=== PATIENT | male | born 1955 | race Caucasian/White ===

== ENCOUNTER 2017-09-05 14:08 | Inpatient (IN) | payer MEDICARE, OTHER, SELFPAY ==
[~2017-09-05 14:08] MED LIST: ISOVUE-370 76%-LOCM 1 ML ONE
[2017-09-05] MEDS ORDERED: Ondansetron ODT 4 MG TAB ONE (14:28)
[2017-09-05 14:46] LABS: Hemoglobin 10.6 g/dL (14.0-18.0); Mean Corpuscular HGB CONC 35.9 g/dL (32.0-36.0); Mean Corpuscular Hemoglobin 39.2 pg (27.0-31.0); Mean Platelet Volume 6.2 fL (7.4-10.4); Platelet Count 156 thou/uL (130-400); RBC Distribution Width 12.7 % (11.5-14.5); Red Blood Cell (RBC) Count 2.71 mill/uL (4.70-6.10); White Blood Cell (WBC) Count 11.3 thou/uL (4.8-10.8)
--- NOTE | 2017-09-05 15:02 | CT ---
BRAIN CT WITHOUT IV CONTRAST: HISTORY: A 62-year-old male with a history of altered mental status with syncope and collapse. COMPARISON: 08/23/2014 FINDINGS: There is some atrophy and chronic white matter ischemic change. No focal mass or midline shift. No intraaxial or extraaxial hemorrhage. Mild posterior left ethmoid sinus mucosal disease. IMPRESSION: No mass, bleed, or other significant acute process. POS: [facility]
[2017-09-05 15:11] LABS: ALT (SGPT) 95 U/L (8-55); AST (SGOT) 461 U/L (5-34); Albumin 3.9 g/dL (3.5-5.0); Alkaline Phosphatase 300 U/L (40-150); Anion Gap 28 mmol/L (10-20); BUN (Urea Nitrogen) 10 mg/dL (8.4-25.7); Bilirubin, Total 7.6 mg/dL (0.2-1.2); Calc. Creatinine Clearance 0 mL/min (70-130); Calcium 6.3 mg/dL (7.8-10.44); Carbon Dioxide 24 mmol/L (22-29); Chloride 92 mmol/L (98-107); Estimated GFR-MDRD 78; Globulin 2.8 g/dL (2.4-3.5); Glucose 110 mg/dL (70-105); Protein, Total 6.7 g/dL (6.0-8.3); Sodium 141 mmol/L (136-145)
[2017-09-05 15:14] LABS: Troponin I 0.139 ng/mL (< 0.028)
[2017-09-05 15:16] LABS: Potassium 2.8 mmol/L (3.5-5.1)
--- NOTE | 2017-09-05 15:19 | RAD ---
SINGLE VIEW OF THE CHEST: Comparison: 05-05-12 History: Altered mental status post possible syncopal episode. Patient fell off the couch. FINDINGS: Single view of the chest shows a normal sized cardiomediastinal silhouette. The patient is status pos t sternotomy. There is a tracheostomy with its tip in the trachea. Surgical clips project over the le ft upper chest. There is no evidence of consolidation, mass, or pleural effusion. IMPRESSION: No evidence of acute cardiopulmonary disease. POS: [facility]
[2017-09-05 15:20] LABS: CKMB 19.2 ng/mL (0-6.6)
[2017-09-05 15:23] LABS: #Lymphocytes 0.3 thou/uL (1.20-3.40); #Monocytes 0.9 thou/uL (0.11-0.59); #Neutrophils 10.1 thou/uL (1.40-6.50); %Eosinophils 0.1 % (0.0-10.0); %Lymphocytes 2.5 % (21.0-51.0); %Monocytes 7.8 % (0.0-10.0); %Neutrophils 89.6 % (42.0-75.0); MDiff Complete? YES; Macrocytosis SLIGHT = 6-15 cells (100X) (0-5/hpf); PLT Morphology Comment Appears Adequate
[2017-09-05 15:42] LABS: Acetaminophen Less than 6.0 mcg/mL (10.0-30.0); Alcohol Less than 10 mg/dL (Less than 10); Salicylate Less than 8.0 mg/dL (15.0-30.0)
[2017-09-05] MEDS ORDERED: Potassium Chloride 20 MEQ TAB ONE (15:43)
[2017-09-05] MEDS ORDERED: Potassium Chloride 20 MEQ in Sodium Chloride 0.9% 250 ML 250 ML IVPB ONE (15:45)
[2017-09-05 15:55] LABS: Base Excess-Venous 2.1 mmol/L (0 (+/- 2.5)); Bicarbonate (HCO3v) 25.9 mmol/L (1.0-85.0); Calcium, Ionized 0.53 mmol/L (1.12-1.32); Hemoglobin - Calc 10.4 g/dL (12.0-18.0); O2 Tension (PvO2) 34.6 mmHg (35.0-45.0); Potassium 2.4 mmol/L (3.4-4.7); pH (Venous) 7.465 (7.35-7.45); vO2 Saturation-calc 70.7 % (94-98)
--- NOTE | 2017-09-05 16:36 | ULT ---
ULTRASOUND GALLBLADDER RIGHT UPPER QUADRANT 09/05/17 HISTORY: Pain. COMPARISON: None. FINDINGS: The pancreas is not well seen. The visualized portion of the aorta and IVC are unremarkable. Increase d hepatic echotexture. Liver measures 17.5 cm in length. Gallbladder wall thickness is upper limits of normal. There is extensive sludge and debris throughout the gallbladder. Sonographic Boles's sign is negative. Common bile duct is under 6 mm. Right kidney measures 10.9 x 3.9 x 4 cm. No mass, hydronephrosis or calcification. IMPRESSION: 1. Diffuse increased hepatic echotexture and hepatomegaly suggesting steatosis. 2. Extensive gallbladder sludge. POS: [facility]
[2017-09-05] MEDS ORDERED: Bisacodyl 5 MG TAB PO PRN (17:06)
[2017-09-05] MEDS ORDERED: Ondansetron HCl/PF 4 MG/2 ML Vial IVP PRN (17:06)
[2017-09-05] MEDS ORDERED: Mag-Al 1200 mg/1200 mg/30 ML UDCUP PO PRN (17:06)
[2017-09-05] MEDS ORDERED: Calcium Carbonate 500 MG ChewTAB PO PRN (17:06)
[2017-09-05] MEDS ORDERED: Acetaminophen 325 MG TAB PO PRN ×2 (17:06→19:00)
[2017-09-05] MEDS ORDERED: Dextrose 5% in Water 1,000 ML IV PRN (17:06)
[2017-09-05] MEDS ORDERED: Senokot 8.6 MG TAB PO PRN (17:06)
[2017-09-05] MEDS ORDERED: Acetaminophen 650 MG Suppository PR PRN (17:06)
[2017-09-05] MEDS ORDERED: HumaLOG 300 UNITS/3 ML VIAL SC PRN ×2 (17:06)
[2017-09-05] MEDS ORDERED: Dextrose 50% Abboject 50 ML SYRINGE SLOW IVP PRN (17:06)
[2017-09-05 17:08] LABS: INR-International Normal Ratio 1.5; PTT 32.2 SEC (22.9-36.1); Prothrombin Time 18.4 SEC (12.0-14.7)
[2017-09-05] MEDS ORDERED: Benzonatate 100 MG CAP PO PRN (17:08)
[2017-09-05] MEDS ORDERED: hydrALAZINE 20 MG/ML VIAL SLOW IVP PRN (17:08)
[2017-09-05] MEDS ORDERED: Nitroglycerin 0.4 MG TAB (25 Tab Bottle) SL PRN (17:08)
[2017-09-05] MEDS ORDERED: Loratadine 10 MG TAB PO PRN (17:08)
[2017-09-05] MEDS ORDERED: Diabetic Tussin 200 MG/10 ML UDCUP PO PRN (17:08)
[2017-09-05] MEDS ORDERED: Sodium Chloride 0.9% 1,000 ML IV SCH (17:15)
[2017-09-05] MEDS ORDERED: Ibuprofen 200 MG TAB ONE ×2 (17:15→17:34)
--- NOTE | 2017-09-05 17:34 | CT ---
CT ABDOMEN AND PELVIS WITH IV CONTRAST: 09/05/17 Multiple axial tomograms obtained through the abdomen and pelvis with IV enhancement. INDICATIONS: Syncope. Comparison made to a prior noncontrast CT abdomen and pelvis 01/13/15. FINDINGS: The lung bases are clear. The liver shows diffuse low attenuation suggesting diffuse hepatic steatosis. There is evidence of mi ld fatty sparring in the left lobe. A low density focus in the right lobe measuring 1.0 cm is stable from the prior exam. The gallbladder is mildly distended. No gallbladder wall thickening or pericholecystic edema. Spleen and pancreas are unremarkable. Adrenal glands appear normal. Stomach and duodenum unremarkable. Kidneys show no evidence of hydronep hrosis or urinary calculus. Urinary bladder is mildly distended and unremarkable. Small bowel loops appear normal. Appendix appears normal. The colon is almost completely decompressed and nondistended. There is scattered diverticula. Small amount of free fluid in the deep pelvis. Aorta is normal caliber. The liver is enlarged with a craniocaudal dimension measured at 22 cm. IMPRESSION: 1. Hepatomegaly. Hepatic steatosis with areas of fatty sparring. 1 cm low density lesion in the right lobe of the liver is stable from prior exam. 2. Mild gallbladder distention. Recent ultrasound from earlier today showed no evidence of galls tones; however, gallbladder sludge was identified. 3. Small amount of free fluid in the deep pelvis. POS: [facility]
[2017-09-05] MEDS ORDERED: cefTRIAXone\\ROCEPHIN 1 GM VIAL ONE (17:57)
[2017-09-05 18:42] LABS: Lactic Acid 3.5 mmol/L (0.5-2.2)
[2017-09-05 18:55] LABS: Troponin I 0.447 ng/mL (< 0.028)
[2017-09-05] MEDS ORDERED: VANCOMYCIN IVPB PRN (19:07)
[2017-09-05] MEDS ORDERED: Aspirin 81 mg Enteric Coated Tablet PO SCH (19:15)
[2017-09-05] MEDS ORDERED: Vancomycin HCl 1.5 GM in Sodium Chloride 0.9% 250 ML 300 ML IVPB SCH (19:30)
[2017-09-05 19:37] VITALS: BMI 20.4
--- NOTE | 2017-09-05 19:50 | HP ---
DATE OF ADMISSION: 09/05/2017 PRIMARY CARE PHYSICIAN: None. CHIEF COMPLAINT: Possible syncopal episode, although the patient denies the same. According to the patient, his leg gave away and he fell down. HISTORY OF PRESENTING ILLNESS: Mr. Cruz is a 62-year-old male with history of stage IV thyroid car cinoma, status post tracheostomy and PEG tube placement in 2014, who is status post chemotherapy and radiation therapy, who came to the emergency room with the above-mentioned complaint. History is manuel nly obtained by the patient himself who was a rather poor historian. No family is available. Case h as been discussed with the ER physician and extensive chart review has been done. He was last admitt ed to our facility in 2014 and at that time, underwent a PEG tube placement for maintaining hydration and nutrition. Since then, he has the PEG tube removed. The patient reports that he does not follow up with any physician per se. He has not been taking any medications either. He reports that he was getting off the couch this morning and his leg gave away and he fell down. According to the ER physician, the family told the physician that the patient was sitting on the couch and he passed out. The patient denies this vehemently. He denies any other re cent illnesses and reports he has been in his usual health. He did have some problem with his tracheostomy secretions in the emergency room requiring suction, bu t he reports that this is normal for him. Upon presentation to the emergency room, he was hemodynamically stable with a blood pressure of 118/8 2, temperature 98.4, pulse of 88, saturating 99% on room air. His blood work, however, had different lab abnormalities including mild leukocytosis with WBCs of 11.3 with 89% neutrophils. His serum samuel rafal showed significant hypokalemia with a potassium of 2.8 as well as hypocalcemia. His lactic ac id is highly elevated to 7.9 and he had significant elevation of LFTs as well as bilirubin. His CK-M B as well as troponin was found to be elevated, which prompted the CPK check, which came back elevate d at 1767. His serum alcohol, salicylate and Tylenol levels are unremarkable. Even though he is hem odynamically stable, he has significant lab abnormalities and for this reason, he is now being admitt ed for further evaluation. The patient himself reports that he is at his baseline. An abdominal ultrasound was done in the emergency room, which showed significant gallbladder sludge a nd some hepatic steatosis, otherwise unremarkable. A CT scan of the abdomen and pelvis was done afte r this, which also shows hepatomegaly with fatty stranding of the liver, otherwise mild gallbladder d istention and rest is unremarkable. PAST MEDICAL HISTORY: 1. History of stage IV thyroid cancer, status post radiation and chemotherapy and tracheostomy, supp osedly in remission for now. 2. History of hypothyroidism secondary to thyroid carcinoma. 3. Diabetes mellitus type 2. PAST SURGICAL HISTORY: 1. Tracheal resection. 2. Tracheostomy. 3. PEG tube placement and removal. 4. Skin flap repair on his chest. CODE STATUS: Full code. Discussed with the patient. SOCIAL HISTORY: He is a former smoker, quit multiple years ago. No history of alcohol or drug abuse . ALLERGIES: Include PACLITAXEL. FAMILY HISTORY: Significant for hypertension. CURRENT HOME MEDICATIONS: None as per the patient. REVIEW OF SYSTEMS: A 12-point review of systems is done and is negative except for those mentioned i n the history and physical. Constitutional: Weight loss or gain, ability to conduct usual activitie s. Skin: Rash, itching. Eyes: Double vision, pain. ENT/Mouth: Nose bleeding, neck stiffness, pa in, tenderness. Cardiovascular: Palpitations, dyspnea on exertion, orthopnea. Respiratory: Shortn ess of breath, wheezing, cough, hemoptysis, fever or night sweats. Gastrointestinal: Poor appetite, abdominal pain, heartburn, nausea, vomiting, constipation, or diarrhea. Genitourinary: Urgency, fr equency, dysuria, nocturia. Musculoskeletal: Pain, swelling. Neurologic/Psychiatric: Anxiety, dep ression. Allergy/Immunologic: Skin rash, bleeding tendency. LABORATORY EXAMINATION: His CBC shows WBCs at 11.3 with 89% neutrophils. Hemoglobin is 10.6 with ma crocytosis. His coagulation studies are unremarkable. His serum chemistry showed potassium of 2.8, chloride 92, anion gap 28, blood sugar 110. Renal function is within normal limits. Lactic acid is 7.9, calcium 6.3. His total bilirubin is 7.6, AST 461, ALT 95, alkaline phosphatase 300. His creati nine kinase is 1767. CK-MB 19.2. Troponin 0.139. BNP is 167. Prolactin is normal at 12.95. Serum salicylate, acetaminophen and alcohol level are unremarkable. IMAGING: CT scan of the brain by my review is negative for any mass, bleeding or acute processes. C hest x-ray by my review is negative for any infiltrate, effusion or edema. Abdominal ultrasound and CT of the abdomen and pelvis as above as per HPI. PHYSICAL EXAMINATION: VITAL SIGNS: Most recent vital signs, temperature 102.1, blood pressure 106/72, pulse of 109, respir ations 19, saturating 98% on room air. GENERAL: No acute distress. He is awake, alert and oriented x3. He is able to talk with putting a finger on his tracheostomy. He is having some difficulty handling the secretions from the tracheosto my requiring suction. Otherwise, he is able to follow simple commands and answer questions. HEENT: Mucous membrane is moist and pink. No oropharyngeal exudate or edema. Thick serosanguinous secretions coming out from the tracheostomy. Head is normocephalic, atraumatic. Pupils equal and re active to light and accommodation. NECK: Supple without any lymphadenopathy, JVD or bruit. CHEST: Clear to auscultation without any wheezing, rales or rhonchi. Rhythm is regular without any murmur, rubs or gallops. ABDOMEN: Soft, nontender, nondistended. Positive bowel sounds. EXTREMITIES: Free of any cyanosis, clubbing or edema. NEUROLOGIC: Nonfocal. SKIN: Free of any rashes or bruises. Feels warm and dry to touch. PSYCHIATRIC: Normal affect. IMPRESSION AND PLAN: 1. Sepsis. The patient did not have fever upon presentation to the emergency room, but since then h e has spiked a temperature. Given elevated WBC count and high lactic acid: Sepsis is highly likely in this patient. He does have elevated liver enzymes. Urinalysis is pending because of difficulty t o pass a catheter. Source is unknown at this time. We will start him on IV fluids and empiric IV an tibiotics. Blood cultures and urine cultures will be obtained. We will cover him for gastroenterolo gy source as well as start empiric broad spectrum IV antibiotics. 2. Elevated liver enzymes and hyperbilirubinemia. Unclear etiology. The patient does not have any evidence of drug overdose or toxicity. He has mild gallbladder sludge without any obstruction. He d oes not have any evidence of fluid overload to suggest congestive hepatopathy as well. No evidence o f metastasis on the CT scan. We will continue to trend it and start him on empiric IV antibiotics as above. We will request consultation with Gastroenterology as well. We will avoid any hepatotoxic m edications. We will also check a serum lipase. 3. Hypokalemia. The potassium has been replaced and we will recheck. Also check a magnesium level and replace if low. We will start him on IV fluids with potassium added. 4. Lactic acidosis. As number 1, sepsis is suspected. He will be treated with normal saline and em piric antibiotic and we will repeat the lactic acid as well. 5. Elevated troponin. This is most likely secondary to sepsis as well as rhabdomyolysis. We will c ontinue to trend serial cardiac enzymes. We will give him 1 dose of aspirin for now and obtain a tra nsthoracic echocardiogram. The patient does not have any signs or symptoms to suggest acute coronary syndrome at this time. 6. Rhabdomyolysis secondary to fall this morning. Continue him on IV fluids and repeat the CPK in t he morning. 7. Altered mental status. The patient denies any syncopal episode and the family is not here to col laborate the fact. At this time, he seems to be back to his baseline. We will monitor his mental st atus while he is here. 8. History of thyroid carcinoma. The patient has not had any followups. We will check a TSH for no w. 9. Microcytic anemia, seems to be chronic for this patient. Continue to monitor. 10. Code status: Full code. Discussed with the patient. 11. Add p.r.n. medication order set. 12. Deep venous thrombosis and gastrointestinal prophylaxis. 13. Diabetes mellitus as per the history. The patient currently is not on any medications. We will put him on insulin sliding scale and monitor Accu-Cheks frequently. His blood sugar has been on the lower side on presentation. DISPOSITION: Mr. Cruz is currently being admitted to the hospital for a multitude of reasons as ab ove. He will be worked up and treated for sepsis among others. Estimated length of stay is at least 2-3 midnights. He will be admitted on telemetry floor.
[2017-09-05] MEDS ORDERED: Magnesium Sulfate 3 GM in Sodium Chloride 0.9% 100 ML IVPB SCH (20:15)
[2017-09-05 20:56] LABS: Troponin I 0.492 ng/mL (< 0.028)
[2017-09-05] MEDS: 1/2 NS w/KCL 20 mEq 1,000 ML IV SCH (21:04)
[2017-09-05] MEDS: Famotidine/PF 20 mg/2ml Vial SLOW IVP SCH (21:16)
[2017-09-05 21:40] LABS: Bacteria/HPF None Seen HPF (None Seen); Squamous Epithelial 21-50 HPF (0-3); WBC/HPF 21-50 HPF (0-3)
[2017-09-05 21:45] LABS: Pathc Cast-AUWi Flag 6.39 (0-2.49); Yeast-AUWi Flag 78.3 (0-25.0)
[2017-09-05 21:56] LABS: Yeast-All Forms None Seen HPF (None Seen)
[2017-09-05 21:58] LABS: Clarity Cloudy (Clear); Glucose, Urine (Dipstick) Negative (Negative); Leukocyte Small (Negative); Nitrite Positive (Negative); Protein, Urine (Dipstick) 100 mg/dL (Neg-Trace); Specific Gravity, Urine Greater than 1.060 (1.002-1.036)
[2017-09-05 21:59] LABS: Bilirubin Large (Negative); Blood, Urine Large (Negative)
[2017-09-06] MEDS: Piperacillin/Tazobactam 3.375 GM in Sodium Chloride 0.9% 100 ML IVPB SCH ×4 (00:40→19:02)
[2017-09-06 05:52] LABS: ALT (SGPT) 75 U/L (8-55); AST (SGOT) 313 U/L (5-34); Albumin 3.2 g/dL (3.5-5.0); Alkaline Phosphatase 225 U/L (40-150); Anion Gap 24 mmol/L (10-20); BUN (Urea Nitrogen) 12 mg/dL (8.4-25.7); Bilirubin, Total 6.7 mg/dL (0.2-1.2); CK (CPK) 1790 U/L (30-200); Calc. Creatinine Clearance 97 mL/min (70-130); Carbon Dioxide 24 mmol/L (22-29); Chloride 96 mmol/L (98-107); Estimated GFR-MDRD Greater than 90; Globulin 2.3 g/dL (2.4-3.5); Glucose 73 mg/dL (70-105); Magnesium 1.2 mg/dL (1.6-2.6); Protein, Total 5.5 g/dL (6.0-8.3); Sodium 141 mmol/L (136-145)
[2017-09-06 05:56] LABS: Calcium 5.5 mg/dL (7.8-10.44)
[2017-09-06] MEDS ORDERED: Calcium Chloride 1 GM/10 ML Abboject SYRINGE IVP STA (06:14)
[2017-09-06] MEDS: 1/2 NS w/KCL 20 mEq 1,000 ML IV SCH ×2 (06:19→15:57)
[2017-09-06 06:43] LABS: #Lymphocytes 0.4 thou/uL (1.20-3.40); #Monocytes 0.7 thou/uL (0.11-0.59); %Basophils 0.1 % (0.0-1.0); %Eosinophils 0.4 % (0.0-10.0); %Lymphocytes 6.1 % (21.0-51.0); %Monocytes 9.4 % (0.0-10.0); Hemoglobin 9.7 g/dL (14.0-18.0); Mean Corpuscular HGB CONC 35.7 g/dL (32.0-36.0); Mean Corpuscular Hemoglobin 39.4 pg (27.0-31.0); Mean Platelet Volume 6.7 fL (7.4-10.4); PLT Morphology Comment Appears Decreased; Platelet Count 117 thou/uL (130-400); RBC Distribution Width 12.6 % (11.5-14.5); Red Blood Cell (RBC) Count 2.47 mill/uL (4.70-6.10); White Blood Cell (WBC) Count 7.1 thou/uL (4.8-10.8)
[2017-09-06] MEDS ORDERED: Magnesium 2 GM/NS 0.9% 100 ML 2 GM in Premix Bag 1 BAG IVPB SCH (06:45)
[2017-09-06] MEDS ORDERED: Calcium Chloride 1 GM in Sodium Chloride 0.9% 100 ML IVP SCH (06:45)
[2017-09-06] MEDS ORDERED: Magnesium Sulfate 2 GM in Sodium Chloride 0.9% 100 ML IVPB SCH (06:45)
[2017-09-06] MEDS ORDERED: Potassium Chloride 20 MEQ in Premix Bag 1 BAG IVPB SCH (07:00)
[2017-09-06 07:08] LABS: Phosphorus 3.4 mg/dL (2.3-4.7)
[2017-09-06 07:12] LABS: Calcium 5.4 mg/dL (7.8-10.44)
--- NOTE | 2017-09-06 08:08 | CON ---
DATE OF CONSULTATION: 09/06/2017 REASON FOR CONSULTATION: Elevated troponin. PRIMARY CARE PROVIDER: Dr. Abad HISTORY OF PRESENT ILLNESS: Mr. Cruz is a 62-year-old gentleman with no previous history of underl francisca coronary disease. He recently states he tripped and fell. He states he never lost consciousnes s. He states his knee buckled. He fell on his buttock region. He was having significant pain noted to the buttock region. His was paralyzed, called EMS. Again, he states he never lost consciou sness. He denies chest pain, pressure, or other associated symptoms. His potassium and calcium were felt to be very low. He does have a history of stage IV thyroid cancer and [facility] He has a trach and PEG in place. He is currently asymptomatic. PAST MEDICAL HISTORY: As above including diabetes mellitus, hypothyroidism, status post resection, P EG tube placement, a skin flap repair. SOCIAL HISTORY: Previous tobacco abuse, no current alcohol or drug use. ALLERGIES: PACLITAXEL. CURRENT MEDICATIONS: None. REVIEW OF SYSTEMS: Ten-point review of systems are reviewed and as above, otherwise negative. PHYSICAL EXAMINATION: VITAL SIGNS: Blood pressure 99/60, pulse 83, temperature 98.9. GENERAL: Patient is a pleasant male who is in no acute distress. The patient appears his stated age. He does appear mildly cachectic. NEUROLOGIC: The patient is alert and oriented times 3 with no local neurologic deficits. HEENT: Sclerae without icterus. Mouth has moist mucous membranes with normal pallor. NECK: No JVD. Carotid upstroke brisk. No bruits bilaterally. LUNGS: Clear to auscultation with unlabored respirations. BACK: No scoliosis or kyphosis. CARDIAC: Regular rate and rhythm with normal S1 and S2. No S3 or S4 noted. No significant rubs, mur murs, thrills, or gallops noted throughout the precordium. PMI is not displaced. There is no parast ernal heave. ABDOMEN: Soft, nontender, nondistended. No peritoneal signs present. No hepatosplenomegaly. No abn ormal striae. EXTREMITIES: 2+ femoral and 2+ dorsalis pedis pulses. No cyanosis, clubbing, or edema. SKIN: No gross abnormalities. PERTINENT LABS: Hemoglobin 9.7, white blood cell count 7.1, platelet count of 117, potassium 3.0. S odium 141, calcium 5.5. CK 1790, CK-MB of 19. Troponin 0.4. IMPRESSION: 1. Recent fall without syncope. 2. Elevated troponin. 3. Hypokalemia. 4. Stage IV thyroid cancer. RECOMMENDATIONS: At this point, elevated troponin likely related to demand ischemia. He had no curr ent symptoms suggesting angina or unstable angina. He states his knee buckled and fell. Given his c omorbidities, would recommend medical therapy. He is not interested in a more aggressive approach. I would recommend echo with Doppler to assess LV function. His blood pressure appears low and was black pplemented with IV fluids. He will also be getting IV potassium. His magnesium level was also marke dly decreased at 1.2 and will be supplemented.
[2017-09-06] MEDS ORDERED: Multivits W-Minerals Liquid 15mL UDCUP PO SCH ×2 (10:03→10:30)
[2017-09-06] MEDS ORDERED: Folic Acid 1 MG TAB PO SCH ×2 (10:03→10:30)
[2017-09-06] MEDS ORDERED: Cyanocobalamin 1000 MCG/ML VIAL IM SCH (10:15)
[2017-09-06] MEDS: Vancomycin HCl 1 GM in Premix Bag 1 BAG IVPB SCH ×2 (10:23→21:42)
[2017-09-06] MEDS: Enoxaparin Sodium 40 MG/0.4 ML SYRINGE SC SCH (10:56)
[2017-09-06] MEDS: Aspirin 325 MG TAB PO SCH (10:58)
[2017-09-06] MEDS: Calcium Carbonate 500 MG ChewTAB PO SCH ×4 (10:58→21:42)
--- NOTE | 2017-09-06 14:52 | CON ---
DATE OF CONSULTATION: 09/06/2017 GI INPATIENT CONSULTATION NOTE REQUESTING PHYSICIAN: Dr. Barnhart. REASON FOR CONSULTATION: Elevated LFTs. HISTORY OF PRESENT ILLNESS: Ángel Cruz is a 62-year-old gentleman whom I [facility]. At that time, he was being treated for stage IV thyroid cancer. He had finished radiat ion and was undergoing chemotherapy. He developed dysphagia and odynophagia and I placed a PEG tube at that time. The PEG tube was only in for about 3 months as he completely regained a normal swallow ing function and I subsequently removed the PEG tube in my office in 10/2014. The patient states he has had no further issues with dysphagia. No abdominal complaints, no abdominal pain, nausea, or vom iting since that time. He denies any known prior history of liver disease, but tells me that his fat her and his brothers of alcoholic liver disease. The patient himself admits to me that he drink s alcohol quite heavily for many years. He says he will have at least 2-3 glasses of whiskey every d ay because "that is all I can do. I cannot smoke anymore." The patient was admitted to the hospital yesterday after what sounds like a syncopal episode at home. He denies any preceding symptoms. He was having some issues with a right leg injury and he feels that he tried to get off the couch, but w as not strong enough to do so and that he fell. Family members had evidently stated that he had a sy ncopal episode. At any rate, he did regain consciousness until he was brought to the hospital. He h as significant bruising to the back. Upon presentation, his mental status quickly came back to basel ine and he showed no evidence of altered mental status here. He does have a slight tremor. However, he has multiple laboratory abnormalities which prompted admission. He had a leukocytosis with WBC 1 1.3. CK was elevated at 1,790. Magnesium was actually below the assay limit at less than 0.7. He i s also hypocalcemic with calcium 5.5. Troponin was elevated to 0.49. Lactic acid was elevated. LFT s were also elevated with total bilirubin initially 7.6, AST 461 and ALT 95. Urinalysis does show el evated WBCs. He has been placed on broad-spectrum antibiotics. Through all this time, he has been h emodynamically stable. He states that at this time, he is asymptomatic. He has been tolerating his diet today. Liver tests have trended down marginally with total bilirubin now 6.7. Abdominal imagin g just demonstrated some biliary sludge with normal common bile duct, as well as fatty liver and hepa tomegaly. REVIEW OF SYSTEMS: Full review of systems including constitutional, head, eyes, ears, nose, throat, GI, , cardiovascular, respiratory, musculoskeletal, and neurologic systems is negative except as no gabby in the HPI. PAST MEDICAL HISTORY: 1. Stage IV thyroid cancer, status post chemotherapy and radiation in 2014, evidently in remission. 2. Iatrogenic hypothyroidism. 3. Diabetes type 2. 4. Tracheostomy. 5. PEG tube placement in 2014, with subsequent removal in 10/2014. ALLERGIES: PACLITAXEL. OUTPATIENT MEDICATIONS: Levothyroxine, unknown dose per the patient. SOCIAL HISTORY: The patient is a former smoker. He admits to quite heavy alcohol abuse, drinking at least 2-3 glasses of whiskey per day for many years. FAMILY HISTORY: His father of alcoholic liver disease. His brothers also have alcoholic liver disease. PHYSICAL EXAMINATION: VITAL SIGNS: Temperature 98.4, pulse 98, blood pressure 118/70, 97% oxygen saturation on room air. GENERAL: Chronically ill appearing 62-year-old man sitting up in bed comfortably in no distress. MENTAL: Alert and fully oriented, pleasant, conversational. EYES: Mild scleral icterus. Extraocular movements intact. SKIN: Mild jaundice. Lot of ecchymosis to the back as well as to the lower extremities. No rashes were palpable. ENT: Mucous membranes moist, no oral lesions. LYMPH: No submandibular or supraclavicular lymphadenopathy. He does have a tracheostomy in place. Thyroid, he is status post thyroidectomy and tracheostomy. HEART: Regular rate and rhythm. LUNGS: Clear to auscultation bilaterally. ABDOMEN: Nondistended. Bowel sounds present, soft and nontender to palpation. EXTREMITIES: No peripheral edema. NEUROLOGIC: Cranial nerves II-XII intact bilaterally. Moves all extremities well. He does have a r esting tremor of the hands bilaterally. LABORATORY DATA: WBC initially 11.3, now 7.1, hemoglobin 9.7, platelets 117. MCV elevated to 110, B UN 12, creatinine 0.78, glucose 124, calcium 5.5, magnesium 1.2, phosphorus 3.4, INR 1.5, BNP 167. T SH 0.10, CK 1790. Lactic acid 7.9, troponin 0.492. Lipase only 11, total bilirubin initially 7.6, n ow 6.7, alkaline phosphatase initially 300 now 225, AST initially 461, now 313, ALT initially 95, now 75, albumin 3.2. Urinalysis shows 21-50 WBCs. Assays for salicylate, acetaminophen and alcohol are all negative. IMAGING STUDIES: Head CT showed no acute processes. Chest x-ray showed no acute processes. Abdomin al ultrasound showed hepatomegaly home office representative of steatosis. There is some gallbladder sludge, but normal gallbladder wall thickness and normal common bile duct of less than [address] of the abdomen and pelvis shows diffuse fatty liver. There is some focal fatty sparing on the left and a 1 cm low d ensity area in the right lobe of the liver which is stable since 2015. There is mild distention of t he gallbladder, but no increased gallbladder thickness. No pericholecystic fluid, normal appearing p ancreas, spleen and bowel. ASSESSMENT AND PLAN: 1. Elevated liver function tests. 2. Alcoholic fatty liver disease. 3. Sepsis. 4. Rhabdomyolysis. The patient's elevation in LFTs seems multifactorial. He does admit to signific ant alcohol abuse to me, so it appears he has underlying alcoholic fatty liver disease. There may be some component of acute alcoholic hepatitis, but as noted does appear he has urinary tract infection as well. There is no evidence of biliary disease per the imaging. Some of the bilirubin elevation might also be secondary to his large ecchymoses, and some of the transaminase elevation may be second maribel to rhabdomyolysis. I agree with the broad-spectrum antibiotics at this time. He is tolerating a regular diet. I will order some further liver lab workup including autoimmune markers and viral hep atitis serologies and iron studies to rule out concomitant liver disease. LFTs have been trending do wn and would trend of these tomorrow as well as the INR. Would also check free T4 and T3 levels. I had a long discussion with him regarding the importance of stopping all alcohol going forward. Thank you for the consultation. Please call back with questions or concerns.
--- NOTE | 2017-09-06 15:47 | RAD ---
MODIFIED BARIUM SWALLOW IN THE PRESENCE OF SPEECH THERAPIST: HISTORY: Dysphagia, unspecified, feeding difficulties. FINDINGS: No laryngeal penetration or aspiration is seen. There is mild residual in the vallecula. Please see recommendations of the speech therapist for further management. POS: [facility]
[2017-09-06] MEDS: Famotidine/PF 20 mg/2ml Vial SLOW IVP SCH ×2 (15:58→21:42)
--- NOTE | 2017-09-06 16:50 | PDOC.PN ---
- Subjective Encounter Start Date: 09/06/17 Encounter Start Time: 16:48 Subjective: reports that he feels well.no nausea/vomiting.denies any choking on food -: agrees to significant amount of alcohal use daily basis -: denies any AP,Fever/chills - Objective MAR Reviewed: Yes Vital Signs & Weight: Vital Signs (12 hours) Temp Pulse Pulse Pulse Resp BP BP 09/06/17 12:29 98 20 09/06/17 08:50 98.4 F 91 16 09/06/17 08:35 91 92 118/70 107/55 L 09/06/17 07:41 09/06/17 07:36 77 16 09/06/17 04:49 100 12 BP Pulse Ox Pulse Ox 09/06/17 12:29 09/06/17 08:50 118/70 09/06/17 08:35 98 09/06/17 07:41 97 09/06/17 07:36 96 09/06/17 04:49 Weight Admit Weight 150 lb 8 oz Weight 150 lb 8 oz I&O: 09/05/17 09/06/17 09/07/17 06:59 06:59 06:59 Intake Total 2275 Output Total 200 Balance 2075 Result Diagrams: 09/06/17 05:06 09/06/17 05:06 Additional Labs: Accuchecks 09/06/17 09/06/17 09/05/17 10:59 05:47 20:42 POC Glucose 124 H 86 113 H Microbiology 09/05/17 21:20 Urine clean catch Urine Culture - Preliminary NO GROWTH AT 12 HOURS 09/05/17 20:07 Venous blood - Right Arm Blood Culture - Preliminary Specimen has been received and culture in progress. No Growth to date. 09/05/17 20:07 Venous blood - Left Arm Blood Culture - Preliminary Specimen has been received and culture in progress. No Growth to date. Laboratory Tests 09/05/17 09/05/17 09/05/17 14:37 14:37 14:37 WBC 11.3 H Plt Count 156 Calcium 6.3 L Magnesium Creatine Kinase Troponin I 0.139 H Lipase 09/05/17 09/05/17 09/05/17 14:37 18:13 18:13 WBC Plt Count Calcium Magnesium Creatine Kinase 1767 H Troponin I 0.447 H* Lipase 16 0609/05/17 09/06/17 18:13 20:07 02:25 WBC Plt Count Calcium 5.4 L* Magnesium Less than 0.7 L* Creatine Kinase Troponin I 0.492 H* Lipase 09/06/17 09/06/17 05:06 05:06 WBC 7.1 Plt Count 117 L Calcium 5.5 L* Magnesium 1.2 L Creatine Kinase 1790 H Troponin I Lipase LABS REVIEWED Phys Exam - Physical Examination Constitutional: NAD HEENT: PERRLA, moist MMs, sclera anicteric, oral pharynx no lesions THICK SECRETIONS FROM TRACH Neck: no nodes, no JVD, supple, full ROM Respiratory: no wheezing, no rales, no rhonchi, clear to auscultation bilateral Cardiovascular: RRR, no significant murmur, no rub Gastrointestinal: soft, non-tender, no distention, positive bowel sounds Musculoskeletal: no edema, pulses present Neurological: non-focal, normal sensation, moves all 4 limbs Psychiatric: normal affect, A&O x 3 Skin: no rash Dx/Plan (1) Sepsis Code(s): A41.9 - SEPSIS, UNSPECIFIED ORGANISM Status: Acute Comment: Likley aspiration PNA and/or UTI.urine sample contaminated (2) Transaminitis Code(s): R74.0 - NONSPEC ELEV OF LEVELS OF TRANSAMNS & LACTIC ACID DEHYDRGNSE Status: Acute (3) NSTEMI (non-ST elevated myocardial infarction) Code(s): I21.4 - NON-ST ELEVATION (NSTEMI) MYOCARDIAL INFARCTION Status: Acute Comment: demand ischemia from sepsis (4) Hypocalcemia Code(s): E83.51 - HYPOCALCEMIA Status: Acute (5) Hypokalemia Code(s): E87.6 - HYPOKALEMIA Status: Acute (6) Hypomagnesemia Code(s): E83.42 - HYPOMAGNESEMIA Status: Acute (7) Alcohol abuse Code(s): F10.10 - ALCOHOL ABUSE, UNCOMPLICATED Status: Chronic (8) Aspiration into airway Code(s): T17.908A - UNSP FB IN RESP TRACT, PART UNSP CAUSING OTH INJURY, INIT Status: Suspected (9) Hyperbilirubinemia Code(s): E80.6 - OTHER DISORDERS OF BILIRUBIN METABOLISM Status: Acute (10) H/O malignant neoplasm of thyroid Code(s): Z85.850 - PERSONAL HISTORY OF MALIGNANT NEOPLASM OF THYROID Status: Acute (11) Non compliance with medical treatment Code(s): Z91.19 - PATIENT'S NONCOMPLIANCE W OTH MEDICAL TREATMENT AND REGIMEN Status: Acute - Plan incentive spirometry, DVT proph w/SCDs discussed w Rt & 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 -: will consult PCCM as Trach looks very infected and dirty & may need to be t -: taken down.cont mucinex,nebs * .empirc ABx for now.Cx pending.likley due to aspiartion.pt high risk * Troponin stable.no S/S of ACS.cont ASA.Awaiting ECHO results.appreciate cardiology input * LFT trending down.pt reports daily heavy drinking.nicolle chr. * multiple electrolyte abnormalities,hannyley nutritional deficiencies due to poor po intake and alcohalism.Rep[lace and recheck * guarded jail prognosis. * Unknown status of thyroid CA * am labs * Review of Systems - Review of Systems Constitutional: negative: fever, chills, sweats, weakness, malaise, other Respiratory: Sputum. negative: Cough, Dry, Shortness of Breath, Hemoptysis, SOB with Excertion, Pleuritic Pain, Wheezing Cardiovascular: negative: chest pain, palpitations, orthopnea, paroxysmal nocturnal dyspnea, edema, light headedness, other Gastrointestinal: negative: Nausea, Vomiting, Abdominal Pain, Diarrhea, Constipation, Melena, Hematochezia, Other Genitourinary: negative: Dysuria, Frequency, Incontinence, Hematuria, Retention , Other Musculoskeletal: negative: Neck Pain, Shoulder Pain, Arm Pain, Back Pain, Hand Pain, Leg Pain, Foot Pain, Other Skin: negative: Rash, Lesions, Praveen, Bruising, Other Neurological: negative: Weakness, Numbness, Incoordination, Change in Speech, Confusion, Seizures, Other - Medications/Allergies Allergies/Adverse Reactions: Allergies Allergy/AdvReac Type Severity Reaction Status Date / Time paclitaxel [From Taxol] Allergy Verified 08/11/14 14:31 Medications: Current Medications Acetaminophen (Tylenol) 650 mg PO Q8H PRN PRN Reason: Headache/Fever or Pain Al Hydroxide/Mg Hydroxide (Maalox) 30 ml PO Q6H PRN PRN Reason: Heartburn or Indigestion Albuterol/Ipratropium (Duoneb) 3 ml NEB [id number] PRN PRN Reason: SOB &/or Wheezing Albuterol/Ipratropium (Duoneb) 3 ml NEB [id number] [facility] Last Admin: 09/06/17 12:29 Dose: 3 ml Albuterol/Ipratropium (Duoneb) 3 ml NEB [id number] [facility] Aspirin (Aspirin) 325 mg PO QAM-WM [facility] Last Admin: 09/06/17 10:58 Dose: 325 mg Benzonatate (Tessalon) 100 mg PO Q4H PRN PRN Reason: Cough Bisacodyl (Dulcolax) 10 mg PO DAILYPRN PRN PRN Reason: Constipation Budesonide (Pulmicort Neb Solution) 0.25 mg INH BID-RT [facility] Calcium Carbonate (Tums) 1,000 mg PO Q4HR [facility] Last Admin: 09/06/17 16:03 Dose: Not Given Dextrose/Water (Dextrose 50%) 25 gm SLOW IVP PRN PRN PRN Reason: Hypoglycemia Enoxaparin Sodium (Lovenox) 40 mg SC 0900 [facility] Last Admin: 09/06/17 10:56 Dose: 40 mg Famotidine (Pepcid) 20 mg SLOW IVP Q12HR [facility] Last Admin: 09/06/17 15:58 Dose: 20 mg Folic Acid (Folvite) 1 mg PO DAILY [facility] Glucagon (Glucagon) 1 mg IM PRN PRN PRN Reason: Hypoglycemia Guaifenesin (Robitussin Sf) 200 mg PO Q4H PRN PRN Reason: Cough Guaifenesin (Robitussin Sf) 200 mg PO Q6HR [facility] Hydralazine HCl (Apresoline) 10 mg SLOW IVP Q4H PRN PRN Reason: Systolic BP > 170 Dextrose/Water (D5w) 1,000 mls @ 0 mls/hr IV .Q0M PRN; As Directed PRN Reason: Hypoglycemia Piperacillin Sod/Tazobactam (Sod 3.375 gm/ Sodium Chloride) 100 mls @ 200 mls/ hr IVPB Q6HR [facility] Last Admin: 09/06/17 12:59 Dose: 100 mls Vancomycin HCl 1 gm/ Device 200 mls @ 200 mls/hr IVPB Q12HR [facility] Last Admin: 09/06/17 10:23 Dose: 200 mls Potassium Chloride/Sodium Chloride (1/2 Ns W/Kcl 20 Meq) 1,000 mls @ 75 mls/hr IV .[id number] [facility] Last Admin: 09/06/17 15:57 Dose: 1,000 mls Insulin Human Lispro (Humalog) 0 units SC .MODERATE SLIDING SC PRN PRN Reason: Moderate Correctional Scale Insulin Human Lispro (Humalog) 0 units SC .BEDTIME SLIDING SC PRN PRN Reason: Bedtime Correctional Scale Iron/Minerals/Multivitamins (Certa Breezy Liquid) 15 ml PO DAILY [facility] Lactulose (Lactulose) 20 gm PO DAILYPRN PRN PRN Reason: Constipation Loratadine (Claritin) 10 mg PO DAILYPRN PRN PRN Reason: Sinus Symptoms Miscellaneous Medication (Pharmacy To Dose) 1 each IVPB PRN PRN PRN Reason: EMPIRIC COVERAGE Nitroglycerin (Nitrostat) 0.4 mg SL Q5MIN PRN PRN Reason: Chest Pain Ondansetron HCl (Zofran) 4 mg IVP Q6H PRN PRN Reason: Nausea/Vomiting Senna (Senokot) 2 tab PO HSPRN PRN PRN Reason: Constipation Sodium Chloride (Flush - Normal Saline) 10 ml IVF Q12HR [facility] Sodium Chloride (Flush - Normal Saline) 10 ml IVF PRN PRN PRN Reason: Saline Flush
[2017-09-06] MEDS: Budesonide 0.25 MG/2 ML NEB INH SCH (18:02)
[2017-09-06] MEDS: Diabetic Tussin 200 MG/10 ML UDCUP PO SCH (19:02)
--- NOTE | 2017-09-06 19:40 | PDOC.EVN ---
Event Note - Event Note Event Note: Discussed findings of MBS w pt. he is very upset as he was made NPO.Discussed risk of aspiration PNA,sepsis and with him but he is adamant to eat his diet as home.Will restart diet w aspiration risk
[2017-09-06] MEDS ORDERED: Diazepam 5 MG TAB PO PRN (19:59)
[2017-09-06] MEDS ORDERED: Thiamine HCl 200 MG/2 ML VIAL IM SCH (20:00)
[2017-09-06] MEDS ORDERED: Diazepam 5 MG TAB PO SCH (20:00)
[2017-09-06 21:25] LABS: ALT (SGPT) 87 U/L (8-55); AST (SGOT) 304 U/L (5-34); Albumin 3.7 g/dL (3.5-5.0); Alkaline Phosphatase 238 U/L (40-150); Bilirubin, Direct 5.4 mg/dL (0.1-0.3); Protein, Total 6.5 g/dL (6.0-8.3)
[2017-09-06 23:22] LABS: Bilirubin Large (Negative); Blood, Urine Small (Negative); Clarity CLOUDY (Clear); Glucose, Urine (Dipstick) Negative (Negative); Leukocyte Small (Negative); Nitrite Positive (Negative); Protein, Urine (Dipstick) 100 mg/dL (Neg-Trace); pH, Urine 5.5 (5.0-9.0)
[2017-09-06 23:24] LABS: Bacteria/HPF None Seen HPF (None Seen); Hyaline Casts/LPF 0-3 HYALINE CAST LPF (0-3 Hyaline); Pathc Cast-AUWi Flag 0.58 (0-2.49)
[2017-09-06 23:28] LABS: Yeast-AUWi Flag 214.8 (0-25.0)
[2017-09-06 23:29] LABS: Specific Gravity, Urine 1.054 (1.002-1.036)
[2017-09-06 23:31] LABS: Amphetamine Not Detected (NotDetected); Barbiturates Screen Not Detected (NotDetected); Benzodiazepine Screen Not Detected (NotDetected); Cocaine Metabolite Screen Not Detected (NotDetected); Medtox Control Line Valid? VALID (VALID); Medtox Reader # READER 4; Methadone Not Detected (NotDetected); Methamphetamine Not Detected (NotDetected); Opiate Screen Not Detected (NotDetected); Oxycodone Screen Not Detected (NotDetected); Phencyclidine (PCP) Not Detected (NotDetected); THC/Cannabinoid Screen Detected (NotDetected); Tricyclic Screen Not Detected (NotDetected)
[2017-09-06 23:38] LABS: RBC/HPF 0-3 HPF (0-3); Renal Epithelial None Seen HPF (0-3); Transitional Epithelial NONE SEEN HPF (0-3); Yeast-All Forms None Seen HPF (None Seen)
[2017-09-07] MEDS: Piperacillin/Tazobactam 3.375 GM in Sodium Chloride 0.9% 100 ML IVPB SCH ×4 (00:14→18:23)
[2017-09-07] MEDS: Calcium Carbonate 500 MG ChewTAB PO SCH ×6 (00:14→20:43)
[2017-09-07] MEDS: Diabetic Tussin 200 MG/10 ML UDCUP PO SCH ×4 (00:15→18:24)
--- NOTE | 2017-09-07 01:19 | CON ---
DATE OF CONSULTATION: 09/06/2017 HISTORY OF PRESENT ILLNESS: Mr. Cruz is a 62-year-old gentleman who was admitted to the hospital a fter he fell at home. He has been in the hospital since 09/05/2017. I have been consulted today, 09/06/2017, regarding sec retions. The patient's extensive history is outlined. He went to [facility] for a radical surgery on his thyroid gland, total thyroid surgery with dissection of his lymph nodes, received chemo and ra diation extensively. He is from the [facility]. 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 He smoked up to 2 packs a day for almost 40 years, though he said he quit smoking 10 years ago. Two days ago, his legs got weak, got a syncopal episode, and passed out. Denies any chest pain, chills, sweats, or hemoptysis. He has had leg pain and swelling. His has had a CVA. They both take care of each other. The patient drinks excessively as noted. PAST SURGICAL HISTORY: Thyroidectomy in [address] [facility], PEG in the past, permanent trach, skin flap on his chest. PAST MEDICAL HISTORY: Otherwise hypothyroidism, diabetes. MEDICATIONS: Chronic medications from home includes metformin 1000 twice a day, Synthroid 224, ibupr ofen, albuterol inhaler. ALLERGIES: TAXOL. SOCIAL HISTORY: Unremarkable. 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 FAMILY HISTORY: Unremarkable. PHYSICAL EXAMINATION: VITAL SIGNS: Sats are 98% on trach collar, respirations 20, temperature 98, pulse 98, blood pressure 110/70. CHEST: Reveals no rhonchi or wheezing. CARDIAC: Normal S1, S2. No gallops. ABDOMEN: Soft. No masses. LABORATORY DATA: White count 10,000, H&H 9 and 27, platelet count is 117. Liver function was elevat ed. Electrolytes are normal. BUN and creatinine are normal. His last creatine kinase is 1790. Alk anne phosphatase 225, AST 75. IMPRESSION: 1. Status post presumed syncope. 2. Permanent trach, status post thyroidectomy for thyroid cancer. 3. Barium swallow shows no penetration. 4. Retained secretions. 5. Diabetes. 6. Hypothyroidism. 7. Previous tobacco abuse. 8. Alcohol abuse. PLAN: The patient was given a mucolytic, Robitussin liquid, several times a day; neb treatments cindy ral times a day along with Pulmicort. He is advised to change his trach frequently and the inner can nula. I replace the #8 cuffless trach with a #8 cuffless fenestrated Shiley. His previous trach was markedly filthy and dirty. At this stage, nothing additional to offer. Probably we can deescalate his antibiotics, no medicatio n. I do not see any evidence of any pneumonia at this time. Consultation note, 70 minutes, 50% in direct patient care and trach change.
[2017-09-07] MEDS ORDERED: Diazepam 5 MG TAB PO PRN (04:00)
[2017-09-07 05:43] LABS: INR-International Normal Ratio 1.5; Prothrombin Time 18.8 SEC (12.0-14.7)
[2017-09-07 05:44] LABS: #Lymphocytes 0.3 thou/uL (1.20-3.40); #Monocytes 0.3 thou/uL (0.11-0.59); #Neutrophils 3.1 thou/uL (1.40-6.50); %Basophils 0.5 % (0.0-1.0); %Eosinophils 1.2 % (0.0-10.0); %Lymphocytes 8.4 % (21.0-51.0); %Monocytes 6.8 % (0.0-10.0); Hemoglobin 8.6 g/dL (14.0-18.0); Mean Corpuscular HGB CONC 35.2 g/dL (32.0-36.0); Mean Platelet Volume 6.2 fL (7.4-10.4); Platelet Count 95 thou/uL (130-400); RBC Distribution Width 12.5 % (11.5-14.5); Red Blood Cell (RBC) Count 2.21 mill/uL (4.70-6.10); White Blood Cell (WBC) Count 3.8 thou/uL (4.8-10.8)
[2017-09-07 06:03] LABS: ALT (SGPT) 69 U/L (8-55); AST (SGOT) 216 U/L (5-34); Alkaline Phosphatase 176 U/L (40-150); Anion Gap 15 mmol/L (10-20); BUN (Urea Nitrogen) 13 mg/dL (8.4-25.7); Bilirubin, Total 5.4 mg/dL (0.2-1.2); Calc. Creatinine Clearance 94 mL/min (70-130); Calcium 6.3 mg/dL (7.8-10.44); Carbon Dioxide 28 mmol/L (22-29); Chloride 98 mmol/L (98-107); Estimated GFR-MDRD Greater than 90; Globulin 2.1 g/dL (2.4-3.5); Glucose 90 mg/dL (70-105); Iron 109 ug/dL (65-175); Iron Binding Capacity, Total 120 mcg/dL (261-462); Potassium 3.1 mmol/L (3.5-5.1); Protein, Total 5.1 g/dL (6.0-8.3); Sodium 138 mmol/L (136-145)
[2017-09-07 06:13] LABS: Ferritin 1647.43 ng/mL (22-322); Free T4 (Free Thyroxine) 1.59 ng/dL (0.70-1.48)
[2017-09-07 06:27] LABS: HBCM Index 0.06 S/CO (0-0.79); HBSAg Index 0.18 S/CO (0-0.99); Hep A IgM AB Non-Reactive (NonReactive); Hep A IgM S/CO 0.06 S/CO (0-0.79); Hep B Surf Ag Non-Reactive S/CO (NonReactive); Hep C IgG Ab Non-Reactive (NonReactive); Hep C Index 0.09 S/CO (0-0.79); Hepatitis B Core IGM Abs Non-Reactive (NonReactive)
[2017-09-07] MEDS: Budesonide 0.25 MG/2 ML NEB INH SCH ×2 (07:41→18:50)
[2017-09-07] MEDS: Folic Acid 1 MG TAB PO SCH (08:15)
[2017-09-07] MEDS: Magnesium Oxide 400 MG TAB PO SCH (08:15)
[2017-09-07] MEDS: Vancomycin HCl 1 GM in Premix Bag 1 BAG IVPB SCH (08:16)
[2017-09-07] MEDS: Aspirin 325 MG TAB PO SCH (08:17)
[2017-09-07] MEDS: Famotidine/PF 20 mg/2ml Vial SLOW IVP SCH ×2 (08:17→20:44)
[2017-09-07] MEDS: Enoxaparin Sodium 40 MG/0.4 ML SYRINGE SC SCH (08:17)
[2017-09-07 08:45] LABS: Vancomycin, Trough 20.4 ug/mL
[2017-09-07] MEDS ORDERED: Potassium Chloride 40 MEQ in Premix Bag 1 BAG IVPB SCH (09:00)
[2017-09-07] MEDS ORDERED: Folic Acid 1 MG TAB PO SCH (09:00)
[2017-09-07 10:24] LABS: Phosphorus 2.9 mg/dL (2.3-4.7)
--- NOTE | 2017-09-07 10:47 | PRG ---
DATE OF SERVICE: 09/07/2017 Ángel Cruz has got a new #8 cuffless fenestrated Shiley. Appears to be in no distress. PHYSICAL EXAMINATION: VITAL SIGNS: Sats are 90% room air, respirations 14, temperature 98, blood pressure 116/62. CHEST: Chest reveals no wheezing or crackles. CARDIAC: Normal S1, S2, no gallops. LABORATORY DATA: White count 3000, H&H is 8 and 24, platelet count is 95. INR 1.5. Electrolytes ar e normal. IMPRESSION: 1. History of alcohol abuse. 2. History of cannabinoid intake. 3. Thrombocytopenia from previous hepatitis. PLAN: Pulmonary has nothing additional to offer at this time. Continue neb treatments, supportive c are, p.o. antibiotics. Home anytime.
[2017-09-07] MEDS: Multivits W-Minerals Liquid 15mL UDCUP PO SCH (10:51)
[2017-09-07] MEDS: Potassium Chloride 20 MEQ in Premix Bag 1 BAG IVPB SCH ×2 (10:52→15:01)
[2017-09-07] MEDS: Multivitamin W/ Minerals 1 TAB PO SCH (10:53)
[2017-09-07] MEDS: Aspirin 81 mg Enteric Coated Tablet PO SCH (10:54)
--- NOTE | 2017-09-07 12:04 | PRG ---
DATE OF SERVICE: 09/07/2017 SUBJECTIVE: Mr. Cruz says he is feeling well. He is tolerating his diet. There was some concern for oropharyngeal dysphagia, but it does not appear he has aspirated. He relates the issue really is with his dentures more than anything else. He seems to be tolerating a regular diet. He has no oth er complaints. No nausea or vomiting, no abdominal pain. LFTs are trending down. OBJECTIVE: VITAL SIGNS: Temperature 98.6, pulse 93, blood pressure 116/62, 98% oxygen saturation on room air. GENERAL: No acute distress. HEART: Regular rate and rhythm. LUNGS: Clear to auscultation bilaterally. ABDOMEN: Nondistended and nontender. EXTREMITIES: No peripheral edema. LABORATORY STUDIES: WBC 3.8, hemoglobin 8.6, MCV 111, platelets 95. INR is stable at 1.5. Sodium 1 38, potassium 3.1, BUN 13, creatinine 0.81, glucose 97, magnesium 1.0, phosphorus 2.9, ferritin eleva gabby at 1647.43. Iron 109, TIBC 120. Total bilirubin has declined to 5.4, alkaline phosphatase down to 176, AST down to 216, and ALT down to 69. Albumin is 3.0, free T4 1.59, free T3 1.39. ASSESSMENT AND PLAN: 1. Elevated liver function tests, improving. 2. Alcoholic fatty liver disease. 3. Sepsis. 4. Rhabdomyolysis. I am encouraged by the downtrend in the patient's LFT elevation over the past couple of days. Again, I think this is likely multifactorial secondary to alcoholic liver disease as well as rhabdomyolysis and probably also is a consequence of the large ecchymoses from his fall. I again stressed with him the importance of complete alcohol abstinence going forward, and he expresses agreement with this an d willingness to completely stop. We will have him follow up in our clinic in the next 2-3 weeks wit h repeat LFTs at that time to assure continued improvement. He may indeed have early compensated cir rhosis. We are awaiting autoimmune serologies, but viral hepatitis serologies are negative. This is likely all secondary to alcohol. GI will sign off at this time, but please call back with any questions or concerns.
[2017-09-07] MEDS ORDERED: Lorazepam 1 MG TAB PO PRN (12:05)
[2017-09-07] MEDS ORDERED: Lorazepam 2 MG/ML VIAL SLOW IVP PRN (12:06)
--- NOTE | 2017-09-07 12:21 | PDOC.PN ---
- Subjective Encounter Start Date: 09/07/17 Encounter Start Time: 12:20 Subjective: feels better.no new complaints.trach canula changed yesterday -: nursing reports anxiety & ETOH withdrawl symptoms - Objective MAR Reviewed: Yes Vital Signs & Weight: Vital Signs (12 hours) Temp Pulse Resp BP Pulse Ox 09/07/17 08:00 98.6 F 93 14 116/62 09/07/17 07:41 98 09/07/17 07:39 80 16 98 09/07/17 03:59 98.3 F 82 22 H 97/67 95 Weight Admit Weight 150 lb 8 oz Weight 150 lb 8 oz I&O: 09/06/17 09/07/17 09/08/17 06:59 06:59 06:59 Intake Total 2275 1825 Output Total 200 Balance 5 1825 Result Diagrams: 09/07/17 05:26 09/07/17 05:26 Additional Labs: Accuchecks 09/07/17 09/07/17 09/06/17 11:52 05:47 21:38 POC Glucose 133 H 97 108 09/06/17 16:50 POC Glucose 105 Microbiology 09/05/17 21:20 Urine clean catch Urine Culture - Preliminary NO GROWTH AT 12 HOURS 09/05/17 20:07 Venous blood - Right Arm Blood Culture - Preliminary Specimen has been received and culture in progress. No Growth to date. 09/05/17 20:07 Venous blood - Left Arm Blood Culture - Preliminary Specimen has been received and culture in progress. No Growth to date. Laboratory Tests 09/05/17 09/05/17 09/05/17 14:37 14:37 14:37 Calcium 6.3 L Iron TIBC Ferritin Total Bilirubin 7.6 H AST 461 H ALT 95 H Alkaline Phosphatase 300 H Creatine Kinase 1767 H Free T4 Free T3 TSH 3rd Generation 0.1093 L 09/06/17 09/06/17 09/06/17 02:25 05:06 20:56 Calcium 5.4 L* 5.5 L* Iron TIBC Ferritin Total Bilirubin 6.7 H 7.0 H AST 313 H 304 H ALT 75 H 87 H Alkaline Phosphatase 225 H 238 H Creatine Kinase 1790 H Free T4 Free T3 TSH 3rd Generation 09/07/17 09/07/17 05:26 05:26 Calcium 6.3 L Iron 109 TIBC 120 L Ferritin 1647.43 H Total Bilirubin 5.4 H AST 216 H ALT 69 H Alkaline Phosphatase 176 H Creatine Kinase Free T4 1.59 H Free T3 1.39 L TSH 3rd Generation LABS REVIEWED Phys Exam - Physical Examination Constitutional: NAD HEENT: PERRLA, moist MMs, sclera anicteric, oral pharynx no lesions TRACH IN PLACE W COLLAR Neck: no nodes, no JVD, supple, full ROM Respiratory: no wheezing, no rales, no rhonchi, clear to auscultation bilateral Cardiovascular: RRR, no significant murmur, no rub Gastrointestinal: soft, non-tender, no distention, positive bowel sounds Musculoskeletal: no edema, pulses present Neurological: non-focal, normal sensation, moves all 4 limbs Psychiatric: normal affect, A&O x 3 Skin: no rash Dx/Plan (1) Sepsis Code(s): A41.9 - SEPSIS, UNSPECIFIED ORGANISM Status: Acute Comment: Tishaley aspiration PNA and/or UTI.urine sample contaminated (2) Transaminitis Code(s): R74.0 - NONSPEC ELEV OF LEVELS OF TRANSAMNS & LACTIC ACID DEHYDRGNSE Status: Acute Comment: mproving.nicolle alcohalic (3) Alcohol withdrawal Code(s): F10.239 - ALCOHOL DEPENDENCE WITH WITHDRAWAL, UNSPECIFIED Status: Acute (4) NSTEMI (non-ST elevated myocardial infarction) Code(s): I21.4 - NON-ST ELEVATION (NSTEMI) MYOCARDIAL INFARCTION Status: Acute Comment: demand ischemia from sepsis (5) Thrombocytopenia Code(s): D69.6 - THROMBOCYTOPENIA, UNSPECIFIED Status: Acute (6) Hypocalcemia Code(s): E83.51 - HYPOCALCEMIA Status: Acute (7) Hypokalemia Code(s): E87.6 - HYPOKALEMIA Status: Acute (8) Hypomagnesemia Code(s): E83.42 - HYPOMAGNESEMIA Status: Acute (9) Alcohol abuse Code(s): F10.10 - ALCOHOL ABUSE, UNCOMPLICATED Status: Chronic (10) Aspiration into airway Code(s): T17.908A - UNSP FB IN RESP TRACT, PART UNSP CAUSING OTH INJURY, INIT Status: Suspected Comment: Discussed in detail w [employer]OR and pt was found to be having antony aspiration in MBS. Pt not willing to get PEG and wants to have diet knowing the risk iof aspiration,PNA,possible . (11) Hyperbilirubinemia Code(s): E80.6 - OTHER DISORDERS OF BILIRUBIN METABOLISM Status: Acute (12) H/O malignant neoplasm of thyroid Code(s): Z85.850 - PERSONAL HISTORY OF MALIGNANT NEOPLASM OF THYROID Status: Acute (13) Non compliance with medical treatment Code(s): Z91.19 - PATIENT'S NONCOMPLIANCE W OTH MEDICAL TREATMENT AND REGIMEN Status: Acute - Plan continue antibiotics, PT/OT, respiratory therapy, incentive spirometry, out of bed/ambulate, DVT proph w/SCDs no clear evidence of infectio-stop vancomycin.follow final Cx results. -: at risk of aspiration-non compliant with recommendations -: cont to replace lytes and recheck.cont MV w multimenarls -: cont ASE.prn ativan.FA and Bit B12 supplements -: DC IVF given risk of fluid overload from liver failure * .chnage ASA to 81 /day due to risk of bleeding and no clear indication for full dose * monitor platelets.DC lovenox for now.cont SCD * am labs * Review of Systems - Review of Systems Constitutional: negative: fever, chills, sweats, weakness, malaise, other ENT: negative: Ear Pain, Ear Discharge, Nose Pain, Nose Discharge, Nose Congestion, Mouth Pain, Mouth Swelling, Throat Pain, Throat Swelling, Other Respiratory: negative: Cough, Dry, Shortness of Breath, Hemoptysis, SOB with Excertion, Pleuritic Pain, Sputum, Wheezing Cardiovascular: negative: chest pain, palpitations, orthopnea, paroxysmal nocturnal dyspnea, edema, light headedness, other Gastrointestinal: negative: Nausea, Vomiting, Abdominal Pain, Diarrhea, Constipation, Melena, Hematochezia, Other Genitourinary: negative: Dysuria, Frequency, Incontinence, Hematuria, Retention , Other Musculoskeletal: negative: Neck Pain, Shoulder Pain, Arm Pain, Back Pain, Hand Pain, Leg Pain, Foot Pain, Other Neurological: negative: Weakness, Numbness, Incoordination, Change in Speech, Confusion, Seizures, Other - Medications/Allergies Allergies/Adverse Reactions: Allergies Allergy/AdvReac Type Severity Reaction Status Date / Time paclitaxel [From Taxol] Allergy Verified 08/11/14 14:31 Medications: Current Medications Acetaminophen (Tylenol) 650 mg PO Q8H PRN PRN Reason: Headache/Fever or Pain Al Hydroxide/Mg Hydroxide (Maalox) 30 ml PO Q6H PRN PRN Reason: Heartburn or Indigestion Albuterol/Ipratropium (Duoneb) 3 ml NEB [id number] PRN PRN Reason: SOB &/or Wheezing Albuterol/Ipratropium (Duoneb) 3 ml NEB [id number] [facility] Last Admin: 09/07/17 07:43 Dose: Not Given Aspirin (Ecotrin) 81 mg PO DAILY [facility] Last Admin: 09/07/17 10:54 Dose: 81 mg Benzonatate (Tessalon) 100 mg PO Q4H PRN PRN Reason: Cough Bisacodyl (Dulcolax) 10 mg PO DAILYPRN PRN PRN Reason: Constipation Budesonide (Pulmicort Neb Solution) 0.25 mg INH BID-RT [facility] Last Admin: 09/07/17 07:41 Dose: 0.25 mg Calcium Carbonate (Tums) 1,000 mg PO Q4HR [facility] Last Admin: 09/07/17 08:15 Dose: 1,000 mg Dextrose/Water (Dextrose 50%) 25 gm SLOW IVP PRN PRN PRN Reason: Hypoglycemia Diazepam (Valium) 10 mg PO ONE [facility] Stop: 09/15/23 20:01 Diazepam (Valium) 5 mg PO Q4H PRN PRN Reason: FOR ASE 10 OR GREATER Famotidine (Pepcid) 20 mg SLOW IVP Q12HR [facility] Last Admin: 09/07/17 08:17 Dose: 20 mg Folic Acid (Folvite) 1 mg PO DAILY [facility] Last Admin: 09/07/17 08:15 Dose: 1 mg Glucagon (Glucagon) 1 mg IM PRN PRN PRN Reason: Hypoglycemia Guaifenesin (Robitussin Sf) 200 mg PO Q4H PRN PRN Reason: Cough Guaifenesin (Robitussin Sf) 200 mg PO Q6HR [facility] Last Admin: 09/07/17 10:56 Dose: 200 mg Hydralazine HCl (Apresoline) 10 mg SLOW IVP Q4H PRN PRN Reason: Systolic BP > 170 Dextrose/Water (D5w) 1,000 mls @ 0 mls/hr IV .Q0M PRN; As Directed PRN Reason: Hypoglycemia Piperacillin Sod/Tazobactam (Sod 3.375 gm/ Sodium Chloride) 100 mls @ 200 mls/ hr IVPB Q6HR [facility] Last Admin: 09/07/17 10:51 Dose: 100 mls Potassium Chloride 20 meq/ (Device) 100 mls @ 50 mls/hr IVPB Q2H [facility] Stop: 09/07/17 12:59 Last Admin: 09/07/17 10:52 Dose: 100 mls Insulin Human Lispro (Humalog) 0 units SC .MODERATE SLIDING SC PRN PRN Reason: Moderate Correctional Scale Insulin Human Lispro (Humalog) 0 units SC .BEDTIME SLIDING SC PRN PRN Reason: Bedtime Correctional Scale Iron/Minerals/Multivitamins (Certa Breezy Liquid) 15 ml PO DAILY [facility] Last Admin: 09/07/17 10:51 Dose: 15 ml Iron/Minerals/Multivitamins (Theragran M) 1 tab PO DAILY [facility] Last Admin: 09/07/17 10:53 Dose: Not Given Loratadine (Claritin) 10 mg PO DAILYPRN PRN PRN Reason: Sinus Symptoms Lorazepam (Ativan) 2 mg PO Q4H PRN PRN Reason: Anxiety/Agitation Lorazepam (Ativan) 1 mg SLOW IVP Q2H PRN PRN Reason: Anxiety/Agitation Magnesium Oxide (Magnesium Oxide) 400 mg PO DAILY [facility] Last Admin: 09/07/17 08:15 Dose: 400 mg Nitroglycerin (Nitrostat) 0.4 mg SL Q5MIN PRN PRN Reason: Chest Pain Ondansetron HCl (Zofran) 4 mg IVP Q6H PRN PRN Reason: Nausea/Vomiting Senna (Senokot) 2 tab PO HSPRN PRN PRN Reason: Constipation Sodium Chloride (Flush - Normal Saline) 10 ml IVF Q12HR [facility] Last Admin: 09/07/17 10:57 Dose: Not Given Sodium Chloride (Flush - Normal Saline) 10 ml IVF PRN PRN PRN Reason: Saline Flush Thiamine HCl (Thiamine) 100 mg PO DAILY [facility] Last Admin: 09/07/17 08:16 Dose: 100 mg
[2017-09-07] MEDS: 1/2 NS w/KCL 20 mEq 1,000 ML IV SCH (20:52)
[2017-09-08] MEDS: Piperacillin/Tazobactam 3.375 GM in Sodium Chloride 0.9% 100 ML IVPB SCH ×3 (00:57→11:12)
[2017-09-08] MEDS: Calcium Carbonate 500 MG ChewTAB PO SCH ×3 (00:58→09:37)
[2017-09-08] MEDS: Diabetic Tussin 200 MG/10 ML UDCUP PO SCH ×3 (00:58→11:12)
[2017-09-08 05:33] LABS: #Eosinphils 0.1 thou/uL (0.0-0.7); #Lymphocytes 0.3 thou/uL (1.20-3.40); #Monocytes 0.4 thou/uL (0.11-0.59); #Neutrophils 3.4 thou/uL (1.40-6.50); %Basophils 0.2 % (0.0-1.0); %Eosinophils 1.5 % (0.0-10.0); %Monocytes 9.5 % (0.0-10.0); %Neutrophils 81.8 % (42.0-75.0); Hemoglobin 9.5 g/dL (14.0-18.0); Mean Corpuscular Hemoglobin 39.2 pg (27.0-31.0); Mean Platelet Volume 6.7 fL (7.4-10.4); Platelet Count 139 thou/uL (130-400); RBC Distribution Width 12.6 % (11.5-14.5); Red Blood Cell (RBC) Count 2.43 mill/uL (4.70-6.10); White Blood Cell (WBC) Count 4.2 thou/uL (4.8-10.8)
[2017-09-08 05:49] LABS: ALT (SGPT) 83 U/L (8-55); AST (SGOT) 262 U/L (5-34); Albumin 3.3 g/dL (3.5-5.0); Alkaline Phosphatase 192 U/L (40-150); Anion Gap 16 mmol/L (10-20); BUN (Urea Nitrogen) 11 mg/dL (8.4-25.7); Bilirubin, Total 5.5 mg/dL (0.2-1.2); CK (CPK) 1089 U/L (30-200); Calc. Creatinine Clearance 91 mL/min (70-130); Calcium 6.7 mg/dL (7.8-10.44); Carbon Dioxide 26 mmol/L (22-29); Chloride 100 mmol/L (98-107); Estimated GFR-MDRD Greater than 90; Globulin 2.4 g/dL (2.4-3.5); Glucose 103 mg/dL (70-105); Potassium 3.3 mmol/L (3.5-5.1); Protein, Total 5.7 g/dL (6.0-8.3); Sodium 139 mmol/L (136-145)
[2017-09-08] MEDS ORDERED: Calcium Gluc 4.6 MEQ/10 ML (100 MG/ML) SLOW IVP ONE (07:14)
[2017-09-08] MEDS: Budesonide 0.25 MG/2 ML NEB INH SCH (07:16)
[2017-09-08] MEDS: Potassium Chloride 20 MEQ in Premix Bag 1 BAG IVPB SCH ×2 (07:47→10:08)
[2017-09-08] MEDS ORDERED: Calcium Gluconate 10 MEQ in Sodium Chloride 0.9% 100 ML IVPB SCH (08:00)
[2017-09-08] MEDS ORDERED: Calcium Gluconate 4.6 MEQ in Sodium Chloride 0.9% 100 ML IVPB SCH (08:00)
--- NOTE | 2017-09-08 08:23 | PDOC.CTH ---
Cardiology Progress Note - Subjective Doing well without complaints - Objective Vital Signs Temp Pulse Resp BP Pulse Ox 09/08/17 07:16 109 H 18 97 09/08/17 03:49 98.8 F 96 13 128/63 97 09/08/17 00:18 86 20 96 09/08/17 00:00 98.0 F 83 18 108/54 L 98 09/07/17 20:35 98.5 F 104 H 18 110/64 99 Admit Weight 150 lb 8 oz Weight 151 lb 2 oz 09/07/17 09/08/17 09/09/17 06:59 06:59 06:59 Intake Total 1825 350 Balance 1825 350 - Physical Examination General/Neuro: alert & oriented x3, NAD Neck: carotid US brisk, no JVD present Lungs: CTA Heart: RRR Abdomen: no HSM, NT/ND, soft Extremities: + femoral B - Labs Result Diagrams: 09/08/17 05:06 09/08/17 05:06 Troponin/CKMB CK-MB (CK-2) 19.2 ng/mL (0-6.6) H* 09/05/17 14:37 Troponin I 0.492 ng/mL (< 0.028) H* 09/05/17 20:07 - Assessment/Plan 1. Recent fall 2. Increase troponin 3. Dysphagia 4. Thyroid cancer Pt doing well. EF normal Increase troponin likely related to rhabdo vs demand ischmeia. No symptoms of angina. Fall related to loss of balance with no LOC Recommend medical treatment Fu with me in 2-3 weeks
--- NOTE | 2017-09-08 09:08 | PRG ---
DATE OF SERVICE: 09/08/2017 This morning he is awake, alert, responsive, in no distress. Trach in place. Less cough. PHYSICAL EXAMINATION: VITAL SIGNS: Sats 96% on room air, temperature 99, pulse 80, respiration rate 18, blood pressure 110 /71. CHEST: Chest revealed minimal rhonchi. CARDIAC: Normal S1, S2. No gallops. ABDOMEN: Soft, no masses. LABORATORY: White count is normal 4000. H&H 9 and 27, platelet count normal. Elevated liver functi on. Creatinine 1.89. ALT is 83, AST is 262. IMPRESSION: 1. Bronchitis. 2. Alcohol abuse. 3. Abnormal liver function tests. 4. History of thyroid cancer. PLAN: The patient is doing well. He can be discharged home anytime. The patient knows how to care for his trach. Pulmonary will follow at a distance.
[2017-09-08] MEDS: Multivits W-Minerals Liquid 15mL UDCUP PO SCH (09:33)
[2017-09-08] MEDS: Magnesium Oxide 400 MG TAB PO SCH (09:35)
[2017-09-08] MEDS: Multivitamin W/ Minerals 1 TAB PO SCH (09:35)
[2017-09-08] MEDS: Folic Acid 1 MG TAB PO SCH (09:36)
[2017-09-08] MEDS: Aspirin 81 mg Enteric Coated Tablet PO SCH (09:36)
[2017-09-08] MEDS: Famotidine/PF 20 mg/2ml Vial SLOW IVP SCH (09:39)
[2017-09-08] MEDS ORDERED: Potassium Chloride 20 MEQ TAB PO SCH (10:30)
[2017-09-08 12:10] VITALS: BP 119/77; TEMP 98
[2017-09-08 12:35] LABS: ANA Symphony (Qualitative) Negative (Negative); EliA Vaculitis New Method **** NEW METHOD ****; Mitochondrial Ab 0.7 U/mL (<4 Negative); dsDNA IgG Antibody 3.7 IU/mL (<10 Negative)
--- NOTE | 2017-09-09 17:00 | DIS ---
DATE OF ADMISSION: 09/05/2017 DATE OF DISCHARGE: 09/08/2017 CONDITION AT THE TIME OF DISCHARGE: Stable and improved. DISCHARGE DISPOSITION: Home with home health. DISCHARGE DIAGNOSES: 1. Multiple electrolyte abnormalities due to alcohol abuse and malnutrition. 2. Mechanical fall. 3. Sepsis ruled out. 4. Elevated liver enzymes and hyperbilirubinemia, due to chronic alcohol intake. 5. Elevated troponin, likely secondary to rhabdomyolysis. 6. Altered mental status, likely secondary to metabolic encephalopathy, resolved. 7. History of thyroid carcinoma, status post treatment 2 years ago. 8. Chronic anemia. 9. Diabetes mellitus. DISCHARGE MEDICATIONS: Folic acid 1 mg daily, multivitamin with multiple minerals daily, nebulizers, DuoNeb every 6 hours as needed, thiamine 100 mg daily, Mucinex p.o. b.i.d. as needed, levothyroxine 224 mcg daily, metformin 1000 mg p.o. b.i.d. CONSULTATIONS INHOUSE: 1. Gastroenterology, Dr. Koby Ramírez. 2. Pulmonary Medicine. 3. Cardiology, Dr. Denson. PROCEDURES DONE IN THE HOSPITAL: 1. CT scan of the brain upon presentation, which is unremarkable. No mass, bleed or acute infarctio n. 2. Abdominal ultrasound in the emergency room for elevated liver enzymes, which showed diffuse incre ased hepatic echotexture and hepatomegaly suggesting steatosis and extensive gallbladder sludge. 3. CT scan of the abdomen and pelvis in the emergency room, which showed hepatomegaly and 1 cm low d ensity lesion in the right lobe of the liver, which is stable from prior exam and mild gallbladder di stention without any evidence of gallstones. 4. Modified barium swallow, which shows antony penetration and aspiration. 5. Transthoracic echocardiogram, which shows EF of 50%-55% and hypokinesis of the septal wall in the left ventricle and mildly dilated left atrium. He has moderate mitral regurgitation and tricuspid r egurgitation. HISTORY OF PRESENTING ILLNESS: Mr. Cruz is a 62-year-old male with a history of thyroid cancer, st atus post tracheostomy and radiation surgery as well as history of alcohol abuse and diabetes mellitu s, who presented to the emergency room with the question of a syncopal episode. This history was pro vided by his family to the ER physician, but when I evaluated the patient in the emergency room for a dmission, he was awake, alert, oriented x3, and he told me that he has gotten up and his legs got wea k and he fell down. Nevertheless, upon presentation, he had multiple electrolyte abnormalities inclu ding severe hypokalemia, hypocalcemia, hypomagnesemia, and elevated liver enzymes, bilirubin, lactic acid, CK-MBs, total creatine kinase, and troponin elevation. He had leukocytosis, which was mild on presentation, and there were no signs or symptoms to suggest infection. He underwent a CT scan of th e brain in the ER, which was unremarkable. Chest x-ray did not have any infiltrate. Because of the elevated liver enzymes, he underwent abdominal ultrasound and then abdominal CT scan, which showed he patomegaly without any obvious reason for elevated bilirubin and liver enzymes. He was hemodynamical ly stable upon presentation. He was found to have a tracheostomy, which was full of thick serosangui neous secretions. This patient has been significantly noncompliant with his medications and has not followed up with any physician in multiple years. He is also a daily heavy drinker. He had a fever once shortly after bringing him up to the room and sepsis diagnosis was entertained. He was started on IV fluids and empiric IV antibiotics and cultures were sent. Electrolyte abnormalities were treat ed. Please see admission history and physical for further details. HOSPITAL COURSE: GI was consulted with regard to abnormal liver enzymes. Dr. Ramírez saw the patient. Initially, the patient did not tell us that he is alcoholic, but later he conceded to the fact that he is a daily heavy drinker. Most of his lab abnormalities were thought to be secondary to alcohol a buse, but further workup was initiated by Gastroenterology, looking for other etiologies of liver katarina lure. His liver enzymes were trended and they improved, but not by a whole lot. The patient was ext ensively counseled about alcohol abstinence and he was receptive to the counseling. With regard to his tracheostomy, initially a respiratory therapist was consulted. They recommended c onsulting Pulmonary Medicine, because of his tracheostomy being extremely filthy and heavy secretions . Dr. Galan saw the patient and his inner cannula was changed by him and he was taught tracheostomy c are. There was also a question of significant aspiration. Speech therapist was consulted. He underwent a bedside swallow, which suggested aspiration, so he underwent a modified barium swallow, which also s howed antony penetration and aspiration. It was suggested that he should be n.p.o. This patient has had a PEG tube in the past, but because he did not like it, he had discontinued. He pretty much eats tomato soup and chicken noodle soup at home and has learned to eat liquids. I discussed the risk of the diet with him and the necessity for reinserting the PEG tube, but the patient vehemently decline d it at this time. He understands the risk of aspiration and pneumonia and possibly , but he ch ose to keep doing the pleasure feeds as he is doing at home. He was also found to have elevated CPK on presentation, which was thought to be secondary to rhabdomy olysis. There was no evidence of renal injury. He was resuscitated with IV fluids and his CPK impro shyam. He was also found to have elevated cardiac enzymes, for which Cardiology was consulted and he underwe nt an echocardiogram with the above-mentioned results. Serial cardiac enzymes were trended and the h ighest was 0.492. Dr. Denson from the Cardiology service saw the patient, and in his opinion, thi s is all secondary to rhabdomyolysis and possibly some demand ischemia. There were no new recommenda tions, but he will follow up with Dr. Denson in the outpatient setting. His electrolyte abnormalities were tackled on a day-to-day basis. His potassium and his calcium has significantly improved. This is most likely secondary to alcohol abuse and nutritional deficiencies, because of poor p.o. intake. He is instructed to get his blood work checked in the next few days an d follow up with the primary care physician, which he is yet to establish. Home health was arranged for him prior to discharge. He was seen and examined prior to discharge. PHYSICAL EXAMINATION: This morning, VITAL SIGNS: Temperature 99.4, pulse of 82, respirations 16, saturating 100% on room air, blood pres sure 129/76. No acute distress, awake, alert, oriented x3. CHEST: Clear to auscultation without any wheezing, rales or rhonchi. HEART: Rate and rhythm is regular without any murmur, rubs or gallops. NEUROLOGICAL EXAMINATOIN: Nonfocal. LABORATORY EXAMINATION: His urine and blood culture remained negative until date. Antibiotics were stopped on discharge. Total time spent 35 minutes.
== END 2017-09-08 12:42 | disposition home health service (06) | DRG 896 ==
LOC: ERS 14:08 → 2NO 18:53
PROVIDERS: ADMIT Internal Medicine; ATTEND Internal Medicine
DX: F10.239 Alcohol dependence with withdrawal, unspecified (principal); G93.41 Metabolic encephalopathy; I21.A1 Myocardial infarction type 2; E46 Unspecified protein-calorie malnutrition; E87.2 Acidosis; T79.6XXA Traumatic ischemia of muscle, initial encounter; E87.6 Hypokalemia; C73 Malignant neoplasm of thyroid gland; F41.9 Anxiety disorder, unspecified; D69.6 Thrombocytopenia, unspecified; E83.51 Hypocalcemia; E83.42 Hypomagnesemia; T17.900A Unspecified foreign body in respiratory tract, part unspecified causing asphyxiation, initial encounter; E80.6 Other disorders of bilirubin metabolism; Z85.850 Personal history of malignant neoplasm of thyroid; Z91.19 Patient's noncompliance with other medical treatment and regimen; Z91.81 History of falling; L89.151 Pressure ulcer of sacral region, stage 1; Z93.0 Tracheostomy status; Z87.891 Personal history of nicotine dependence; E11.9 Type 2 diabetes mellitus without complications; D50.9 Iron deficiency anemia, unspecified; J40 Bronchitis, not specified as acute or chronic; K70.0 Alcoholic fatty liver; I08.1 Rheumatic disorders of both mitral and tricuspid valves; D72.829 Elevated white blood cell count, unspecified; E03.9 Hypothyroidism, unspecified
CPT/HCPCS: 36415; 36416; 70450; 71045; 74177; 74230; 76705; 80053; 80074; 80202; 80306; 80307; 81001; 82330; 82550; 82553; 82728; 82803; 83516; 83540; 83550; 83605; 83690; 83735; 83880; 84100; 84146; 84439; 84443; 84481; 84484; 85025; 85610; 85730; 86038; 86225; 87040; 87086; 93005; 93306; 94640; 96361; 96365; 96366; 96375; A4216; G8978-GP-CN; G8979-GP-CK; G8987-GO-CK; G8988-GO-CI; G8996-GN-CN; G8997-GN-CM; J0696; J1650; J2543; J3370; J3420; J3475; J3480; J7050; J7620; J7626; Q0162; S0028

== ENCOUNTER 2017-12-15 21:35 | Emergency (ER) | payer MEDICARE | END 2017-12-15 22:57 | disposition home or self-care (01) | LOC: ERS 21:35 | DX: J95.09 Other tracheostomy complication (principal); J45.909 Unspecified asthma, uncomplicated; Z79.899 Other long term (current) drug therapy; Z87.891 Personal history of nicotine dependence | CPT/HCPCS: 99283 ==

== ENCOUNTER 2018-02-04 08:01 | Inpatient (IN) | payer MEDICARE ==
[2018-02-04 08:32] LABS: #Basophils 0.1 thou/uL (0.0-0.2); #Eosinphils 0.2 thou/uL (0.0-0.7); #Lymphocytes 0.9 thou/uL (1.20-3.40); #Monocytes 0.4 thou/uL (0.11-0.59); %Basophils 0.9 % (0.0-1.0); %Eosinophils 2.8 % (0.0-10.0); %Lymphocytes 13.4 % (21.0-51.0); %Monocytes 5.7 % (0.0-10.0); %Neutrophils 77.2 % (42.0-75.0); Hemoglobin 13.9 g/dL (14.0-18.0); Mean Platelet Volume 5.5 fL (7.4-10.4); Platelet Count 193 thou/uL (130-400); RBC Distribution Width 12.5 % (11.5-14.5); Red Blood Cell (RBC) Count 4.33 mill/uL (4.70-6.10); White Blood Cell (WBC) Count 6.4 thou/uL (4.8-10.8)
[2018-02-04 08:41] LABS: INR-International Normal Ratio 0.9; PTT 29.1 SEC (22.9-36.1); Prothrombin Time 12.4 SEC (12.0-14.7)
[2018-02-04 08:52] LABS: ALT (SGPT) 72 U/L (8-55); AST (SGOT) 82 U/L (5-34); Albumin 4.5 g/dL (3.5-5.0); Alcohol 276 mg/dL (Less than 10); Alkaline Phosphatase 141 U/L (40-150); Anion Gap 19 mmol/L (10-20); BUN (Urea Nitrogen) 16 mg/dL (8.4-25.7); CK (CPK) 43 U/L (30-200); Calc. Creatinine Clearance 0 mL/min (70-130); Calcium 9.9 mg/dL (7.8-10.44); Carbon Dioxide 28 mmol/L (22-29); Chloride 97 mmol/L (98-107); Estimated GFR-MDRD Greater than 90; Globulin 3.2 g/dL (2.4-3.5); Glucose 88 mg/dL (70-105); Potassium 4.3 mmol/L (3.5-5.1); Protein, Total 7.7 g/dL (6.0-8.3); Sodium 140 mmol/L (136-145)
[2018-02-04 08:57] LABS: CKMB 1.6 ng/mL (0-6.6); Troponin I Less than 0.010 ng/mL (< 0.028)
[2018-02-04] MEDS ORDERED: Lorazepam 2 MG/ML VIAL ONE (09:18)
--- NOTE | 2018-02-04 10:48 | PDOC.FPRHP ---
- History of Present Illness Chief Complaint: sob History of Present Illness: 62yo M with pmh of thyroid cancer s/p resection with stoma presenting for several hour history of SOB. Pt reports noticing his secretions occluding his stoma airway and that initially he was able to clear them with a q tip but eventually it was not enough. Pt had associated increasing SOB and cough but no Fever or chills. Of note pt has hx of failed swallow studies ED Course: Trach was placed through the pt ostomy and pt was placed on vent. Dr. Martinez saw pt and recs 24hr on vent. - Allergies/Adverse Reactions Allergies Allergy/AdvReac Type Severity Reaction Status Date / Time paclitaxel [From Taxol] Allergy Verified 08/11/14 14:31 - Home Medications Medication Instructions Recorded Confirmed Type Ibuprofen [Advil] 200 mg PO Q6HR PRN 04/02/14 09/05/17 History HYDROcodone/Acetaminophen 1 tablet PO DAILY PRN 08/11/14 09/05/17 History [HYDROcodone Bit/Acetaminophen] Levothyroxine Sodium [Synthroid] 224 mcg PO DAILY 08/11/14 09/05/17 History metFORMIN HCl 1,000 mg PO BID-WM 08/11/14 09/05/17 History Folic Acid [Folvite] 1 mg PO DAILY #30 tab 09/08/17 Rx Ipratropium/Albuterol Sulfate 3 ml NEB E3MI-AM PRN #30 neb 09/08/17 Rx [DuoNeb] Magnesium Oxide 400 mg PO DAILY #30 tab 09/08/17 Rx Multivitamin W/ Minerals 1 tab PO DAILY #30 tab 09/08/17 Rx [Theragran M] Nebulizer Accessories [Aeroneb Go] 1 each ASDIR #1 each 09/08/17 Rx Thiamine 100 mg PO DAILY #30 tab 09/08/17 Rx guaiFENesin/Pseudoephedrne HCl 2 tab PO BID PRN #60 tab 09/08/17 Rx [Mucinex D] - History PMHx:Thyroid cancer s/p resection with stoma. PSHx: Thryroid resection with stoma FHx: none Social: EtOH 2-3 drinks/day, endorses smoking weed, former tobacco user - Review of Systems General: denies: fever/chills, fatigue Eyes: denies: eye pain, vision changes ENT: denies: nasal congestion Respiratory: reports: cough, congestion, shortness of breath Cardiovascular: denies: chest pain, palpitation Gastrointestinal: denies: nausea, vomiting Skin: denies: rashes, lesions Musculoskeletal: denies: pain, tenderness Neurological: denies: syncope, seizure Psychological: denies: anxiety, depression - Vital signs BP: [168/86] HR: [123] RR: [23] Tmax: [98.9] Pox: [98]% on [BiPAP] Wt: [65kg] - Physical Exam Constitutional: awake, alert and oriented, other (mild-moderate distress 2/2 respiratory status, trach in place with active vent) HEENT: normocephalic and atraumatic, EOMI, grossly normal vision, grossly normal hearing, other (white plaque displacable with scraping) Neck: trachea midline, other (trach in place) Chest: no-tender to palpation Heart: normal S1/S2, other (tachycardic, regular rhythm) Lungs: CTAB, other (decreased air movment) Abdomen: soft, non-tender Musculoskeletal: normal structure, normal tone Neurological: normal sensation Skin: no rash/lesions, good turgor Heme/Lymphatic: no unusual bruising or bleeding Psychiatric: normal mood and affect, good judgment and insight FMR H&P: Results - Labs Result Diagrams: 02/04/18 08:24 02/04/18 08:24 Lab results: WBC 6.4 thou/uL (4.8-10.8) 02/04/18 08:24 Hgb 13.9 g/dL (14.0-18.0) L 02/04/18 08:24 Hct 42.0 % (42.0-52.0) 02/04/18 08:24 MCV 97.0 fL (78.0-98.0) 02/04/18 08:24 Plt Count 193 thou/uL (130-400) 02/04/18 08:24 Neutrophils % 77.2 % (42.0-75.0) H 02/04/18 08:24 Sodium 140 mmol/L (136-145) 02/04/18 08:24 Potassium 4.3 mmol/L (3.5-5.1) 02/04/18 08:24 Chloride 97 mmol/L (98-107) L 02/04/18 08:24 Carbon Dioxide 28 mmol/L (22-29) 02/04/18 08:24 BUN 16 mg/dL (8.4-25.7) 02/04/18 08:24 Creatinine 0.77 mg/dL (0.6-1.3) 02/04/18 08:24 Glucose 88 mg/dL (70-105) 02/04/18 08:24 Calcium 9.9 mg/dL (7.8-10.44) 02/04/18 08:24 Total Bilirubin 1.0 mg/dL (0.2-1.2) 02/04/18 08:24 AST 82 U/L (5-34) H 02/04/18 08:24 ALT 72 U/L (8-55) H 02/04/18 08:24 Alkaline Phosphatase 141 U/L (40-150) 02/04/18 08:24 Creatine Kinase 43 U/L (30-200) 02/04/18 08:24 CK-MB (CK-2) 1.6 ng/mL (0-6.6) 02/04/18 08:24 B-Natriuretic Peptide Less than 10.0 pg/mL (0-100) 02/04/18 08:24 Serum Total Protein 7.7 g/dL (6.0-8.3) 02/04/18 08:24 Albumin 4.5 g/dL (3.5-5.0) 02/04/18 08:24 FMR H&P: A/P - Problem List (1) Respiratory failure with hypoxia and hypercapnia Current Visit: Yes Status: Acute Code(s): J96.91 - RESPIRATORY FAILURE, UNSPECIFIED WITH HYPOXIA; J96.92 - RESPIRATORY FAILURE, UNSPECIFIED WITH HYPERCAPNIA (2) Alcohol abuse Current Visit: Yes Status: Acute Code(s): F10.10 - ALCOHOL ABUSE, UNCOMPLICATED (3) Hypertension Current Visit: Yes Status: Acute Code(s): I10 - ESSENTIAL (PRIMARY) HYPERTENSION (4) Thrush, oral Current Visit: Yes Status: Acute Code(s): B37.0 - CANDIDAL STOMATITIS (5) H/O malignant neoplasm of thyroid Current Visit: No Status: Acute Code(s): Z85.850 - PERSONAL HISTORY OF MALIGNANT NEOPLASM OF THYROID (6) Aspiration into airway Current Visit: No Status: Suspected Code(s): T17.908A - UNSP FB IN RESP TRACT, PART UNSP CAUSING OTH INJURY, INIT Comment: Discussed in detail w DRAFTER CIVIL (CAD) and pt was found to be having antony aspiration in MBS. Pt not willing to get PEG and wants to have diet knowing the risk iof aspiration,PNA,possible . - Plan 62yo M with stoma presenting in hypoxic hypocapnic respiratory distress Hypoxic, hypercapnic respiratory distress 2/2 stoma obstruction with concern for aspiration pnuemonia A- Per hx pt had issue with obstruction of stoma but also has evidence of aspiration in the LLL. Additionally pt has hx of failed swallow studies. Pt is not febrile with normal WBC now. Recs per pulmonology are continuation of vent for 24 hrs. P- Admit to CCU -will continue vent 24hrs -repeat CBC in AM -speech therapy consult tomorrow for eval of dysphagia -monitor vitals Oral Thrush A- thrush on exam P- oral antifungal tx -monitor for resolution EtOH A- Pt has hx of EtOH missuse with elevated lvls on presentation this AM at 0800 P- JACKELINE protocol - careers counsellor cessation HTN A- Pt reports SBPs at home 120's but is 160s-170s on exam today. Likely 2/2 to pulmonary distress P- Labetolol PRN -will monitor vitals and consider terminal superintendent therapy DM A- pt reports hx of resolved DM, BG 88 today P- will monitor BGs Steatosis -hx of steatosis, MD aware FMR H&P: Upper Level - Pertinent history Ángel Cruz is a 62 year old male with a PMH of thyroid cancer s/p resection , chemo/radiation now with a stoma, alcohol abuse, GERD, HTN who presents after acute onset of difficulty breathing the morning of admission. States that he was unable to cough out mucous and attempted to clear airway with a q-tip which slightly helped initially but it got to the point where he could no long clear his secretions so he decided to come to the ED. He denies any chest pain, n/v, diaphoresis, fever, chills. He was otherwise at his normal state of health prior to this morning. In the ED, size 4 ET was placed through his stoma and he was put on the vent. CT of the chest in the ED showed mucous formation within the trachea just distal to the tracheostomy and some aspiration in the left lower lobe, no evidence of PE. - Pertinent findings CT of the chest in the ED showed mucous formation within the trachea just distal to the tracheostomy and some aspiration in the left lower lobe, no evidence of PE. Laboratory Tests 02/04/18 02/04/18 02/04/18 08:24 08:24 08:24 WBC 6.4 Hgb 13.9 L Hct 42.0 Plt Count 193 PT 12.4 INR 0.9 APTT 29.1 Sodium 140 Potassium 4.3 Chloride 97 L Carbon Dioxide 28 BUN 16 Creatinine 0.77 Glucose 88 AST 82 H ALT 72 H Alkaline Phosphatase 141 Creatine Kinase 43 CK-MB (CK-2) Troponin I B-Natriuretic Peptide Plasma Alcohol 276 H 02/04/18 02/04/18 08:24 08:24 WBC Hgb Hct Plt Count PT INR APTT Sodium Potassium Chloride Carbon Dioxide BUN Creatinine Glucose AST ALT Alkaline Phosphatase Creatine Kinase CK-MB (CK-2) 1.6 Troponin I Less than 0.010 B-Natriuretic Peptide Less than 10.0 Plasma Alcohol - Plan Date/Time: 02/04/18 [id number] I, Steve Mayer MD, have evaluated this patient and agree with findings/plan as outlined by business development intern resident. Pertinent changes/additions are listed here. (1) Acute Hypoxic Hypercapneic Respiratory Failure: - 2/2 mucous plugging of stoma - size 4 ET tube placed in the ED and Dr. Martinez consulted in the ED - Recommended 24 hours on the vent, admit to CCU - CT showed evidence of aspiration in LLL, clinically no signs of pneumonia as he is afebrile, normal WBC - repeating CBC in AM - pt has a history of alcohol abuse and of failing swallow studies in past, consulting speech therapy (2) Hypertension - review of home medications shows that he is not currently being treated - monitor vitals - prn labetalol (3) Thrush - initiating therapy with nystatin (4) Hx of alcohol abuse - toxicology showed plasma alcohol of 276 - ASE Protocol, counseled on cessation (5) Hx of diabetes - Apparently takes metformin per clinic chart review - Pt states he no long has diabetes - Will continue to monitor sugars (6) Steatosis - hx of fatty liver, LFTs elevated Attending Addendum - Attending Addendum Date/Time: 02/04/18 3092 I personally evaluated the patient and discussed the management with Dr. Pdaron and Moreno. I agree with and repeated the History, Examination, Assessment and Plan documented above with any addition or exceptions noted below. Acute resp failure 2/2 stoma occlusion. Continue PS. Pulm toilet. c/f aspiration. Monitor for fever ETOH abuse. ASE protocol. ETOH level > 200 on admission. DVT and GI ppx.
--- NOTE | 2018-02-04 10:59 | CT ---
CT ANGIOGRAM CHEST WITH CONTRAST: Date: 02/04/18 HISTORY: Dyspnea. COMPARISON: None. FINDINGS: CT angiogram chest performed after the intravenous administration of contrast. 3D rendering is proved . No proximal segmental pulmonary arterial filling defect. Tracheostomy is in place. Moderate volume mu cus within the trachea just beyond the tip of the ostomy. Celiac trunk and superior mesenteric artery are patent. Mild scarring lung apices. Mild upper lobe bronchiectasis. No pneumothorax or focal air space consoli dation. There is some mild mucus plugging in the left lower lobe posterior segment bronchi. IMPRESSION: 1. No proximal segmental pulmonary arterial filling defect. 2. Mucus formation within the trachea just distal to the tracheostomy with some aspiration within th e left lower lobe. POS: NANCIE
[2018-02-04] MEDS ORDERED: Albuterol Sulfate 2.5 mg/3 ml Neb ONE (11:04)
[2018-02-04] MEDS ORDERED: Ondansetron PF 4 MG/2 ML Vial IVP PRN (11:50)
[2018-02-04] MEDS ORDERED: Ondansetron ODT 4 MG TAB SL PRN (11:50)
[2018-02-04] MEDS ORDERED: Sodium Chloride 0.9% 1,000 ML IV SCH (12:15)
[2018-02-04] MEDS ORDERED: Labetalol HCl 100 MG/20 ML VIAL SLOW IVP PRN (12:20)
[2018-02-04 12:29] VITALS: BMI 20.1
[2018-02-04] MEDS ORDERED: Nystatin 500,000 UNITS/5 ML UDCUP SSW SCH (13:00)
[2018-02-04] MEDS ORDERED: Propofol 1,000 MG/100 ML VIAL IV ONE (13:15)
[2018-02-04] MEDS ORDERED: Fentanyl BOLUS 250 ML IVPB PRN (13:30)
[2018-02-04] MEDS ORDERED: Morphine 2 MG/ML SYRINGE SLOW IVP PRN (13:30)
[2018-02-04] MEDS ORDERED: Ventilator Sedation Protocol 1 EACH FS SCH (13:30)
[2018-02-04] MEDS ORDERED: fentaNYL Citrate/PF 2,000 MCG in Sodium Chloride 0.9% 60 ML IV SCH (13:30)
[2018-02-04] MEDS ORDERED: DISCONTINUE PREVIOUS NARCOTIC PAIN MEDICATIONS AND BENZODIAZEPINES FS SCH (13:30)
[2018-02-04] MEDS ORDERED: Propofol BOLUS 1,000 MG/100 ML VIAL IV PRN (13:30)
[2018-02-04] MEDS: Dextrose 5 %-0.45 % NaCl 1,000 ML IV SCH ×2 (14:01→21:28)
--- NOTE | 2018-02-04 14:36 | CON ---
DATE OF CONSULTATION: 02/04/2018 SERVICE: Pulmonary Medicine. REASON FOR CONSULTATION: Respiratory failure. HISTORY OF PRESENT ILLNESS: Patient is a 62-year-old white male with past medical history significant for head and neck cancer. He has a tracheostomy in place. This thing fell out roughly 3 days ago. He tried to get it back in, but was unable to. He called some physician who said it be fine if he left it out. Ultimately, over the next 3 or 4 days, he had increasing shortness of breath and finally presented to the Emergency Department. At that location, his 8-0 tracheostomy was attempted to be replaced, but would not fit. A 6-0 was tried and ultimately 4-0 with significant effort was finally placed. He currently denies any fevers, chills. He has no nausea, vomiting or diarrhea. He has no hot, red, swollen joints or new rashes. Otherwise, his cough has been stable. He has been bringing up thick mucus that has been dried out. PAST MEDICAL HISTORY: Thyroid cancer, status post radiation therapy. PAST SURGICAL HISTORY: Tracheostomy. FAMILY HISTORY: Noncontributory. SOCIAL HISTORY: He drinks at least three drinks on a daily basis. He smokes marijuana. He has a greater than 22-bmir-esiz history of smoking, but quit remotely. He has no exposure to chemicals, dust asbestos or tuberculosis. ALLERGIES: PAXIL. MEDICATIONS: List of his inpatient medications were reviewed. No specific updates were made at this time. REVIEW OF SYSTEMS: General, head, ears, eyes, nose, throat, cardiovascular, respiratory, GI, , musculoskeletal, neurologic and skin is negative except as mentioned in the HPI. PHYSICAL EXAMINATION: VITAL SIGNS: Afebrile, pulse 115, blood pressure 119/81, respirations 17, saturation 98% on 23% FiO2 and a PEEP of 5. CONSTITUTIONAL: The patient is awake, alert, no apparent distress. LUNGS: He is moving absolutely fantastic air. Rhonchi are present throughout bilateral lung [place]. There is no prolonged expiratory phase, wheezing, otherwise appreciated. HEART: Normal rate, regular. ABDOMEN: Soft, nontender, nondistended. Bowel sounds are positive. MUSCULOSKELETAL: No cyanosis or clubbing. There is no pitting in the bilateral lower extremities. SKIN: He has skin tenting throughout. GENITOURINARY: No Morin. NEUROLOGIC: Grossly nonfocal. LABORATORY DATA: WBC 6.4, hemoglobin 13.9, platelets 193,000. INR 0.9. Basic metabolic profile and liver function studies are essentially unremarkable/ stable. His AST and ALT have been chronically elevated previously. BNP. Troponin is negative x1. Plasma alcohol level is elevated to 276. IMAGING: CTA of the chest demonstrates no evidence of a pulmonary embolism. There are some ground glass opacifications in the apical medial portions of the lung, likely consistent with previous radiation pneumonitis. A tracheostomy is in good position. There is debris in the trachea, and left main stem bronchus. I see absolutely no evidence of consolidating changes. ASSESSMENT: 1. Respiratory failure secondary to malposition of tracheostomy. 2. Thrush. 3. Alcohol abuse. 4. Elevated AST and ALT. DISCUSSION AND PLAN: We will continue antifungal medications directed at thrush. Our surgical consultation will be placed to dilate out his stoma. At this point, it will not be possible to recannulate him with his previous 8-0 as the stoma has closed off over a period of 3 days to the point where we cannot fit his 8-0 in. In the meantime, we will leave him on pressure support ventilation and provide him with very low levels of sedation in order to provide comfort while he is trying to breathe through a small airway. 70 minutes have been devoted to this patient in various activities. I personally reviewed all imaging studies and laboratory data noted within this document. For fifty percent of this time, I was interacting with the patient at the bedside or coordinating care with the care team. For the remainder of the time I was immediately available to the patient in the hospital unit. LUIS
[2018-02-04] MEDS ORDERED: ISOVUE-370 76%-LOCM 1 ML ONE (16:52)
[2018-02-04] MEDS: Propofol 1,000 MG/100 ML VIAL IV PRN ×2 (17:07→21:28)
[2018-02-04] MEDS: Nystatin 500,000 UNITS/5 ML UDCUP SSW SCH ×2 (17:07→20:10)
[2018-02-04] MEDS: Famotidine/PF 20 mg/2ml Vial SLOW IVP SCH (20:10)
[2018-02-04] MEDS: Lorazepam 2 MG/ML VIAL SLOW IVP PRN (20:11)
[2018-02-05] MEDS: Lorazepam 2 MG/ML VIAL SLOW IVP PRN ×3 (00:05→22:48)
[2018-02-05] MEDS: Propofol 1,000 MG/100 ML VIAL IV PRN ×6 (04:13→22:52)
[2018-02-05 04:29] LABS: #Eosinphils 0.1 thou/uL (0.0-0.7); #Lymphocytes 0.4 thou/uL (1.20-3.40); #Monocytes 0.6 thou/uL (0.11-0.59); #Neutrophils 3.9 thou/uL (1.40-6.50); %Lymphocytes 8.4 % (21.0-51.0); %Monocytes 12.3 % (0.0-10.0); %Neutrophils 77.3 % (42.0-75.0); Hemoglobin 11.2 g/dL (14.0-18.0); Mean Corpuscular HGB CONC 33.9 g/dL (32.0-36.0); Mean Corpuscular Hemoglobin 32.9 pg (27.0-31.0); Mean Platelet Volume 6.2 fL (7.4-10.4); Platelet Count 138 thou/uL (130-400); RBC Distribution Width 12.6 % (11.5-14.5); Red Blood Cell (RBC) Count 3.41 mill/uL (4.70-6.10)
[2018-02-05 04:48] LABS: Anion Gap 15 mmol/L (10-20); BUN (Urea Nitrogen) 19 mg/dL (8.4-25.7); Calc. Creatinine Clearance 90 mL/min (70-130); Calcium 9.1 mg/dL (7.8-10.44); Carbon Dioxide 29 mmol/L (22-29); Chloride 98 mmol/L (98-107); Estimated GFR-MDRD Greater than 90; Glucose 112 mg/dL (70-105); Potassium 3.6 mmol/L (3.5-5.1); Sodium 138 mmol/L (136-145)
--- NOTE | 2018-02-05 06:00 | PDOC.FM ---
- Subjective Subjective: Ángel Cruz is a 62 year old man admitted for acute hypoxic hypercapneic respiratory failure 2/2 to occlusion of stoma. 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 Size 4 ET tube placed in the ED, size 6 and 8 would not fit through stoma. Has been on SIMV in the CCU. No complaints, no acute events overnight. - Objective MAR Reviewed: Yes Vital Signs & Weight: Vital Signs (12 hours) Temp Pulse Resp Pulse Ox 02/05/18 04:00 98.1 F 13 02/05/18 02:25 86 02/05/18 02:00 13 02/05/18 00:00 98 F 16 02/04/18 22:21 97 02/04/18 22:00 13 02/04/18 20:00 98 F 15 99 02/04/18 19:35 105 H Weight Weight 67.3 kg Most Recent Monitor Data Heart Rate from ECG 88 NIBP 112/59 NIBP BP-Mean 76 Respiration from ECG 12 SpO2 98 I&O: 02/03/18 02/04/18 02/05/18 06:59 06:59 06:59 Intake Total 2435 Output Total 975 Balance 1460 Result Diagrams: 02/05/18 03:40 02/05/18 03:40 <Steve Mayer - Last Filed: 02/05/18 11:38> - Objective Vital Signs & Weight: Vital Signs (12 hours) Temp Pulse Resp BP 02/05/18 20:00 98.6 F 13 02/05/18 18:36 87 121/72 02/05/18 17:59 13 02/05/18 16:00 13 02/05/18 15:12 76 108/68 02/05/18 15:00 98.2 F 02/05/18 14:00 13 02/05/18 12:00 13 02/05/18 11:00 98.2 F 02/05/18 10:28 77 98/66 02/05/18 10:00 13 Weight Admit Weight 67.132 kg Weight 67.3 kg Most Recent Monitor Data Heart Rate from ECG 107 NIBP 130/64 NIBP BP-Mean 86 Respiration from ECG 16 SpO2 99 I&O: 02/04/18 02/05/18 02/06/18 06:59 06:59 06:59 Intake Total 2435 1806 Output Total 975 4885 Balance 1460 -149 Result Diagrams: 02/05/18 03:40 02/05/18 03:40 <Paul Laguerre - Last Filed: 02/05/18 21:59> Phys Exam - Physical Examination Constitutional: NAD HEENT: moist MMs, sclera anicteric Neck: supple, full ROM Respiratory: no wheezing, no rales, no rhonchi, clear to auscultation bilateral Cardiovascular: RRR, no significant murmur Gastrointestinal: soft, non-tender, no distention Musculoskeletal: no edema, pulses present Neurological: non-focal, normal sensation, moves all 4 limbs Psychiatric: normal affect, A&O x 3 Skin: no rash <Steve Mayer - Last Filed: 02/05/18 11:38> Dx/Plan (1) Respiratory failure with hypoxia and hypercapnia Code(s): J96.91 - RESPIRATORY FAILURE, UNSPECIFIED WITH HYPOXIA; J96.92 - RESPIRATORY FAILURE, UNSPECIFIED WITH HYPERCAPNIA Status: Acute (2) Alcohol abuse Code(s): F10.10 - ALCOHOL ABUSE, UNCOMPLICATED Status: Acute (3) Hypertension Code(s): I10 - ESSENTIAL (PRIMARY) HYPERTENSION Status: Acute (4) Thrush, oral Code(s): B37.0 - CANDIDAL STOMATITIS Status: Acute (5) H/O malignant neoplasm of thyroid Code(s): Z85.850 - PERSONAL HISTORY OF MALIGNANT NEOPLASM OF THYROID Status: Acute (6) Aspiration into airway Code(s): T17.908A - UNSP FB IN RESP TRACT, PART UNSP CAUSING OTH INJURY, INIT Status: Suspected - Plan Plan: Ángel Cruz is a 62 year old M being admitted for acute hypoxic hypercapneic respiratory failure 2/2 stoma occlusion. 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 Martinez and Speech Therapy OPTICAL DISPENSER: Hx of alcohol abuse - Alert and oriented X3 - Sedation/Meds: Propofol, Ativan - Ativan for agitation/tremors, on ASE Protocol due to hx of alcohol abuse RESP: Acute hypoxic hypercapneic respiratory failure - size 4 ET Day #2, placed in ED, size 6 and 8 would not fit in ED - ABG: not indicated - Vent Settings: SIMV- f 13, Vt 470, Psupp 17, PEEP 5, FiO2 27% - CTA chest: no PE, mucous formation within trachea just distal to tracheostomy with some aspiration in the left lower lobe - Pulm regimen: will consider adding duonebs or mucolytics s/p pressure support CV: Hypertension - RRR, no murmurs, rubs, gallops, normal cap refill, no JVD - BP 112/59 this morning, MAP 76 - No antihypertensives on board at this time - No indication for CXR at this time GI: - abd NT/ND, Normoactive BS - GI ppx: pepcid - Diet: regular - speech therapy consulted for swallow eval - I/Os: +1460 - D5 1/2 NS @ 125 ml/hr Heme: - H/H 11.2/33.1 - DVT Ppx: SCDs /Renal - voiding normally - 975 mL urine out since admission - Cr 0.83 ID: - thrush noted on exam at admission - Nystatin Day #2 - Tmax 98.6 - WBC 5.0 Endo: Hx of thyroid cancer s/p resection/chemo/radiation, hypothyroidism - TSH 0.0160 - Will resume home dose of levothyroxine 112 mcg daily, consider increasing Skin: - normal skin exam - routine trach care Lines: - Left upper arm and right forearm peripheral IV Day #2 [facility] and have [facility] tube placed, possible d/c later today Code status: DNR <Steve Mayer - Last Filed: 02/05/18 11:38> (1) Respiratory failure with hypoxia and hypercapnia Code(s): J96.91 - RESPIRATORY FAILURE, UNSPECIFIED WITH HYPOXIA; J96.92 - RESPIRATORY FAILURE, UNSPECIFIED WITH HYPERCAPNIA Status: Acute (2) Alcohol abuse Code(s): F10.10 - ALCOHOL ABUSE, UNCOMPLICATED Status: Acute (3) Hypertension Code(s): I10 - ESSENTIAL (PRIMARY) HYPERTENSION Status: Acute (4) Thrush, oral Code(s): B37.0 - CANDIDAL STOMATITIS Status: Acute (5) H/O malignant neoplasm of thyroid Code(s): Z85.850 - PERSONAL HISTORY OF MALIGNANT NEOPLASM OF THYROID Status: Acute (6) Aspiration into airway Code(s): T17.908A - UNSP FB IN RESP TRACT, PART UNSP CAUSING OTH INJURY, INIT Status: Suspected <Paul Laguerre - Last Filed: 02/05/18 21:59> Attending Addendum - Attending Addendum Date/Time: 02/05/182155 I personally evaluated the patient and discussed the management with Dr. Mayer. I agree with and repeated the History, Examination, Assessment and Plan documented above with any addition or exceptions noted below. Planning to upgrade trach in OR tomorrow. <Paul Laguerre - Last Filed: 02/05/18 21:59>
[2018-02-05] MEDS: Dextrose 5 %-0.45 % NaCl 1,000 ML IV SCH ×3 (06:43→15:49)
[2018-02-05] MEDS: Nystatin 500,000 UNITS/5 ML UDCUP SSW SCH ×4 (08:42→20:49)
[2018-02-05] MEDS: Famotidine/PF 20 mg/2ml Vial SLOW IVP SCH ×2 (08:42→20:49)
[2018-02-05] MEDS ORDERED: Enoxaparin Sodium 40 MG/0.4 ML SYRINGE SC SCH (09:00)
--- NOTE | 2018-02-05 16:11 | PRG ---
DATE OF SERVICE: 02/05/2018 SUBJECTIVE: Ángel Cruz's events have been reviewed. He is having to be sedated with a fair amount of propofol to keep him under control and to keep him from pulling out his tracheostomy, etc. OBJECTIVE: VITAL SIGNS: Blood pressure is 104/63, heart rate is 74, respiratory rate is 13. LUNGS: Clear anteriorly. HEART: Regular rhythm. ABDOMEN: Soft. EXTREMITIES: Without edema. LABORATORY DATA: White count 5, hemoglobin 11.2, platelets 138,000. Sodium 138 , potassium 3.6, chloride 98, bicarbonate 29, BUN 19, creatinine 0.93. IMPRESSION: 1. Status post head and neck cancer. 2. Chronic indwelling tracheostomy. 3. Alcohol intoxication, chronic alcohol abuse. 4. History of thyroid cancer. 5. Diabetes. 6. Status post radical neck dissection with radiation and chemotherapy to follow. 7. 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 PLAN: Continue supportive care. Revision of his tracheostomy is the next step get scheduled. LUIS
[2018-02-05] MEDS ORDERED: CEFAZOLIN/Water 2 GM/20 ML SYRINGE SLOW IVP SCH (16:45)
[2018-02-05] MEDS ORDERED: CEFAZOLIN 2 GM/50 ML-DEXTROSE 2 GM in Premix Bag 1 BAG IVPB SCH (16:45)
--- NOTE | 2018-02-05 23:28 | HP ---
HISTORY OF PRESENT ILLNESS: Ángel Cruz is a 62-year-old male who has dislodged tracheostomy and all that could be replaced with a #4 trach. I have been asked by Dr. Martinez for tracheostomy re vision for larger tracheostomy. He has a history of head and neck cancer, 6 feet, 148 pounds, 20 BMI . He is on sedation, because of anxiety, breathing through his fall tracheostomy. Plan is n.p.o. af ter midnight, tonight, and revision of his tracheostomy tomorrow to a larger tracheostomy #8 Shiley. TOBACCO: PACLITAXEL. SOCIAL HISTORY: Alcohol abuse. Tobacco abuse in the past. PAST SURGICAL HISTORY: Thyroid resection with stoma, tracheostomy. PAST MEDICAL HISTORY: Head and neck cancer with radiation therapy. Patient is intubated, sedated. PHYSICAL EXAMINATION: VITAL SIGNS: 6 feet, 148 pounds, 20 BMI, 86, 109/62. HEAD, EYES, EARS, NOSE, AND THROAT: Unremarkable. LUNGS: Clear to auscultation. CARDIAC: Regular rate and rhythm without murmur or gallop. ABDOMEN: Soft, nontender. EXTREMITIES: Unremarkable. ASSESSMENT AND PLAN: Undersized tracheostomy. Plan revision to accommodate large tracheostomy. His and son consents.
[2018-02-06] MEDS: Lorazepam 2 MG/ML VIAL SLOW IVP PRN (00:47)
[2018-02-06] MEDS: Propofol 1,000 MG/100 ML VIAL IV PRN ×4 (04:02→20:46)
[2018-02-06] MEDS: Dextrose 5 %-0.45 % NaCl 1,000 ML IV SCH ×3 (05:26→16:29)
[2018-02-06] MEDS: Levothyroxine Sodium 100 MCG TAB PO SCH (05:27)
--- NOTE | 2018-02-06 07:21 | PDOC.FM ---
- Subjective Subjective: Ángel Cruz seen at bedside this morning. He is sedated and intubated on ventilator. Vent settings: f 13, Vt 470, Psupp 15, PEEP 5, FiO2 27%. There were no acute events overnight. He has remained sedated due to agitation and to keep him from pulling out his trach. He has been afebrile. He is scheduled for revision to a larger tracheostomy today. Unable to attain ros due to sedation. - Objective MAR Reviewed: Yes Vital Signs & Weight: Vital Signs (12 hours) Temp Pulse Resp BP Pulse Ox 02/06/18 06:00 16 02/06/18 04:00 98.9 F 13 02/06/18 02:20 100 140/80 02/06/18 02:00 14 02/06/18 00:00 99.0 F 13 02/05/18 22:10 97 125/67 02/05/18 22:00 13 02/05/18 20:00 98.6 F 13 99 Weight Admit Weight 67.132 kg Weight 67.3 kg Most Recent Monitor Data Heart Rate from ECG 91 NIBP 122/69 NIBP BP-Mean 86 Respiration from ECG 17 SpO2 98 I&O: 02/05/18 02/06/18 02/07/18 06:59 06:59 06:59 Intake Total 2435 3595 Output Total 975 2965 Balance 1460 630 Result Diagrams: 02/05/18 03:40 02/05/18 03:40 <Steve Mayer - Last Filed: 02/06/18 08:02> - Objective Vital Signs & Weight: Vital Signs (12 hours) Temp Pulse Resp BP Pulse Ox 02/06/18 22:00 15 02/06/18 20:00 15 99 02/06/18 19:00 98.2 F 02/06/18 18:32 83 89/56 L 02/06/18 18:00 13 02/06/18 16:00 13 02/06/18 14:12 88 127/79 02/06/18 14:00 13 02/06/18 12:00 98.7 F 13 02/06/18 10:21 84 89/47 L Weight Admit Weight 67.132 kg Weight 67.3 kg Most Recent Monitor Data Heart Rate from ECG 85 NIBP 113/67 NIBP BP-Mean 82 Respiration from ECG 13 SpO2 98 I&O: 02/05/18 02/06/18 02/07/18 06:59 06:59 06:59 Intake Total 2431 3595 1571 Output Total 975 2965 1810 Balance 1460 630 -239 Result Diagrams: 02/05/18 03:40 02/05/18 03:40 <CarlottaPaul - Last Filed: 02/06/18 22:19> Phys Exam - Physical Examination Constitutional: NAD HEENT: moist MMs, sclera anicteric Neck: no JVD, supple Respiratory: no wheezing, no rales, no rhonchi, clear to auscultation bilateral Cardiovascular: RRR, no significant murmur Gastrointestinal: soft, non-tender, no distention Musculoskeletal: no edema, pulses present Deviation from normal: sedated <Steve Mayer - Last Filed: 02/06/18 08:02> Dx/Plan (1) Respiratory failure with hypoxia and hypercapnia Code(s): J96.91 - RESPIRATORY FAILURE, UNSPECIFIED WITH HYPOXIA; J96.92 - RESPIRATORY FAILURE, UNSPECIFIED WITH HYPERCAPNIA Status: Acute (2) Alcohol abuse Code(s): F10.10 - ALCOHOL ABUSE, UNCOMPLICATED Status: Acute (3) Hypertension Code(s): I10 - ESSENTIAL (PRIMARY) HYPERTENSION Status: Acute (4) Thrush, oral Code(s): B37.0 - CANDIDAL STOMATITIS Status: Acute (5) H/O malignant neoplasm of thyroid Code(s): Z85.850 - PERSONAL HISTORY OF MALIGNANT NEOPLASM OF THYROID Status: Acute (6) Aspiration into airway Code(s): T17.908A - UNSP FB IN RESP TRACT, PART UNSP CAUSING OTH INJURY, INIT Status: Suspected - Plan Plan: Ángel Cruz is a 62 year old M being admitted for acute hypoxic hypercapneic respiratory failure 2/2 stoma occlusion. 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: Hx of alcohol abuse - Alert and oriented X3 when not sedated, currently sedated on mechanical ventilation - Sedation/Meds: Propofol, Ativan - Ativan for agitation/tremors, on ASE Protocol due to hx of alcohol abuse RESP: Acute hypoxic hypercapneic respiratory failure - size 4 ET Day #3, placed in ED, size 6 and 8 would not fit in ED - ABG: not indicated - Vent Settings: SIMV- f 13, Vt 470, Psupp 15, PEEP 5, FiO2 27% - CTA chest: no PE, mucous formation within trachea just distal to tracheostomy with some aspiration in the left lower lobe - Pulm regimen: will consider adding duonebs or mucolytics s/p pressure support CV: Hypertension - RRR, no murmurs, rubs, gallops, normal cap refill, no JVD - BP 122/69 this morning, MAP 86 - No antihypertensives on board at this time - No indication for CXR at this time GI: - abd NT/ND, Normoactive BS - GI ppx: pepcid - Diet: npo - speech therapy consulted for swallow eval - I/Os: +2089 - D5 1/2 NS @ 125 ml/hr Heme: - H/H 11.2/33.1 - DVT Ppx: SCDs /Renal - voiding normally - 975 mL urine out since admission - Cr 0.83 ID: - thrush noted on exam at admission - Nystatin Day #3 - Tmax 99.0 - WBC 5.0 Endo: Hx of thyroid cancer s/p resection/chemo/radiation, hypothyroidism - TSH 0.0160, Free T4 0.97 - Will resume home dose of levothyroxine 100 mcg daily Skin: - normal skin exam - routine trach care Lines: - Left upper arm and right forearm peripheral IV Day #3 Dispo: scheduled to go to OR at 2 pm for revision of tracheostomy Code status: DNR <Steve Mayer - Last Filed: 02/06/18 08:02> (1) Respiratory failure with hypoxia and hypercapnia Code(s): J96.91 - RESPIRATORY FAILURE, UNSPECIFIED WITH HYPOXIA; J96.92 - RESPIRATORY FAILURE, UNSPECIFIED WITH HYPERCAPNIA Status: Acute (2) Alcohol abuse Code(s): F10.10 - ALCOHOL ABUSE, UNCOMPLICATED Status: Acute (3) Hypertension Code(s): I10 - ESSENTIAL (PRIMARY) HYPERTENSION Status: Acute (4) Thrush, oral Code(s): B37.0 - CANDIDAL STOMATITIS Status: Acute (5) H/O malignant neoplasm of thyroid Code(s): Z85.850 - PERSONAL HISTORY OF MALIGNANT NEOPLASM OF THYROID Status: Acute (6) Aspiration into airway Code(s): T17.908A - UNSP FB IN RESP TRACT, PART UNSP CAUSING OTH INJURY, INIT Status: Suspected <Paul Laguerre - Last Filed: 02/06/18 22:19> Attending Addendum - Attending Addendum Date/Time: 02/06/182218 I personally evaluated the patient and discussed the management with Dr. Mayer. I agree with and repeated the History, Examination, Assessment and Plan documented above with any addition or exceptions noted below. <Paul Laguerre - Last Filed: 02/06/18 22:19>
[2018-02-06] MEDS: Famotidine/PF 20 mg/2ml Vial SLOW IVP SCH ×2 (09:50→20:45)
[2018-02-06] MEDS: Nystatin 500,000 UNITS/5 ML UDCUP SSW SCH ×4 (11:24→20:45)
--- NOTE | 2018-02-06 13:56 | PRG ---
DATE OF SERVICE: 02/06/2018 SUBJECTIVE: Mr. Cruz remains sedated for ventilation. He is scheduled to have his tracheostomy re vision this afternoon. OBJECTIVE: VITAL SIGNS: His heart rate is in the 80s, blood pressure 109/58, respiratory rate is 16, oximetry i s 98. LUNGS: Remarkable for coarse equal breath sounds. HEART: Regular rhythm. ABDOMEN: Soft. LABORATORY DATA: There is no lab today. IMPRESSION: 1. Alcohol withdrawal. 2. Respiratory failure. 3. Status post tracheostomy. He clearly does better with a size 8 versus a size 6 based on my experience with him in my clinic. David navarrete does not see me frequently. He has primarily been followed in [place] by an Ear, Nose and Throat s urgeon. He may be weanable once the right size tracheostomy device is in place. Continue with criti alicia care management with the other physicians. 30 minutes of critical care time.
[2018-02-07] MEDS: Dextrose 5 %-0.45 % NaCl 1,000 ML IV SCH ×3 (01:53→20:46)
[2018-02-07] MEDS: Propofol 1,000 MG/100 ML VIAL IV PRN ×5 (02:15→20:46)
[2018-02-07 05:06] LABS: Anion Gap 13 mmol/L (10-20); BUN (Urea Nitrogen) 5 mg/dL (8.4-25.7); Band 20 % (5-11); Calc. Creatinine Clearance 96 mL/min (70-130); Calcium 8.3 mg/dL (7.8-10.44); Carbon Dioxide 24 mmol/L (22-29); Chloride 106 mmol/L (98-107); Eosinophils 5 % (0-10); Estimated GFR-MDRD Greater than 90; Glucose 114 mg/dL (70-105); Hemoglobin 11.6 g/dL (14.0-18.0); Lymphocytes 7 % (21-51); MDiff Complete? YES; Mean Corpuscular HGB CONC 32.9 g/dL (32.0-36.0); Mean Corpuscular Hemoglobin 32.5 pg (27.0-31.0); Mean Corpuscular Volume 98.9 fL (78.0-98.0); Mean Platelet Volume 7.2 fL (7.4-10.4); Monocytes 8 % (0-10); Neutrophil 60 % (42-75); PLT Morphology Comment Appears Decreased; Platelet Count 108 thou/uL (130-400); RBC Distribution Width 12.5 % (11.5-14.5); Red Blood Cell (RBC) Count 3.57 mill/uL (4.70-6.10); Sodium 140 mmol/L (136-145); White Blood Cell (WBC) Count 4.7 thou/uL (4.8-10.8)
--- NOTE | 2018-02-07 05:52 | PDOC.FM ---
- Subjective Subjective: Ángel Cruz seen at bedside this morning. He continues to be sedated on mechanical ventilation. He was scheduled to undergo tracheostomy revision but the procedure was pushed back to today. Unable to obtain ROS due to sedation. Current vent settings: f 13, Vt 470, Psupp 15, PEEP 5, FiO2 27% - Objective MAR Reviewed: Yes Vital Signs & Weight: Vital Signs (12 hours) Temp Pulse Resp BP Pulse Ox 02/07/18 04:00 97.7 F 20 02/07/18 02:20 72 133/80 02/07/18 02:00 13 02/07/18 00:00 98.1 F 13 02/06/18 22:32 76 104/59 L 02/06/18 22:00 15 02/06/18 20:00 15 99 02/06/18 19:00 98.2 F 02/06/18 18:32 83 89/56 L 02/06/18 18:00 13 Weight Admit Weight 67.132 kg Weight 67.3 kg Most Recent Monitor Data Heart Rate from ECG 69 NIBP 131/80 NIBP BP-Mean 97 Respiration from ECG 13 SpO2 94 I&O: 02/05/18 02/06/18 02/07/18 06:59 06:59 06:59 Intake Total 2435 8595 1571 Output Total 975 2965 2830 Balance 1465 660 -5805 Result Diagrams: 02/07/18 03:39 02/07/18 03:39 <Steve Mayer - Last Filed: 02/07/18 08:52> - Objective Vital Signs & Weight: Vital Signs (12 hours) Temp Pulse Resp BP Pulse Ox 02/07/18 16:00 98.3 F 13 02/07/18 14:11 74 119/74 02/07/18 14:00 13 02/07/18 12:00 98.2 F 13 02/07/18 10:29 70 132/80 02/07/18 10:00 13 02/07/18 08:00 98.7 F 13 98 02/07/18 06:56 75 139/81 02/07/18 06:00 24 H Weight Admit Weight 67.3 kg Weight 67.3 kg Most Recent Monitor Data Heart Rate from ECG 80 NIBP 128/82 NIBP BP-Mean 97 Respiration from ECG 23 SpO2 98 I&O: 02/06/18 02/07/18 02/08/18 06:59 06:59 06:59 Intake Total 3595 8207 Output Total 2963 2905 830 Balance 630 552 -830 Result Diagrams: 02/07/18 03:39 02/07/18 03:39 <Paul Laguerre - Last Filed: 02/07/18 16:46> Phys Exam - Physical Examination Constitutional: NAD HEENT: moist MMs, sclera anicteric Neck: no JVD, supple Respiratory: no wheezing, no rales, no rhonchi, clear to auscultation bilateral Cardiovascular: RRR, no significant murmur Gastrointestinal: soft, non-tender Musculoskeletal: no edema, pulses present Deviation from normal: sedated Skin: cap refill <2 seconds <Steve Mayer - Last Filed: 02/07/18 08:52> Dx/Plan (1) Respiratory failure with hypoxia and hypercapnia Code(s): J96.91 - RESPIRATORY FAILURE, UNSPECIFIED WITH HYPOXIA; J96.92 - RESPIRATORY FAILURE, UNSPECIFIED WITH HYPERCAPNIA Status: Acute (2) Alcohol abuse Code(s): F10.10 - ALCOHOL ABUSE, UNCOMPLICATED Status: Acute (3) Hypertension Code(s): I10 - ESSENTIAL (PRIMARY) HYPERTENSION Status: Acute (4) Thrush, oral Code(s): B37.0 - CANDIDAL STOMATITIS Status: Acute (5) H/O malignant neoplasm of thyroid Code(s): Z85.850 - PERSONAL HISTORY OF MALIGNANT NEOPLASM OF THYROID Status: Acute (6) Aspiration into airway Code(s): T17.908A - UNSP FB IN RESP TRACT, PART UNSP CAUSING OTH INJURY, INIT Status: Suspected - Plan Plan: Ángel Cruz is a 62 year old M being admitted for acute hypoxic hypercapneic respiratory failure 2/2 stoma occlusion. 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 abuse - Alert and oriented X3 when not sedated, currently sedated on mechanical ventilation - Sedation/Meds: Propofol, Ativan - Ativan for agitation/tremors, on ASE Protocol due to hx of alcohol abuse RESP: Acute hypoxic hypercapneic respiratory failure - size 4 ET Day #4, placed in ED, size 6 and 8 would not fit in ED - ABG: not indicated - Vent Settings: SIMV- f 13, Vt 470, Psupp 15, PEEP 5, FiO2 27% - CTA chest: no PE, mucous formation within trachea just distal to tracheostomy with some aspiration in the left lower lobe - Pulm regimen: will consider adding duonebs or mucolytics s/p pressure support CV: Hypertension - RRR, no murmurs, rubs, gallops, normal cap refill, no JVD - BP 131/80 this morning, MAP 97 - No antihypertensives on board at this time - No indication for CXR at this time GI: - abd NT/ND, Normoactive BS - GI ppx: pepcid - Diet: npo - speech therapy consulted for swallow eval - I/Os: -1259 over last 24 hours - D5 1/2 NS @ 125 ml/hr Heme: - H/H 11.2/33.1 - DVT Ppx: SCDs /Renal - voiding normally - Cr 0.78 ID: - thrush noted on exam at admission - Nystatin Day #4 - Tmax 99.0 - WBC 5.0 Endo: Hx of thyroid cancer s/p resection/chemo/radiation, hypothyroidism - TSH 0.0160, Free T4 0.97 - Will resume home dose of levothyroxine 100 mcg daily when patient is tolerating PO Skin: - normal skin exam - routine trach care Lines: - Left upper arm and right forearm peripheral IV Day #4 Dispo: ready for d/c was clear by pulm Code status: DNR <Steve Mayer - Last Filed: 02/07/18 08:52> (1) Respiratory failure with hypoxia and hypercapnia Code(s): J96.91 - RESPIRATORY FAILURE, UNSPECIFIED WITH HYPOXIA; J96.92 - RESPIRATORY FAILURE, UNSPECIFIED WITH HYPERCAPNIA Status: Acute (2) Alcohol abuse Code(s): F10.10 - ALCOHOL ABUSE, UNCOMPLICATED Status: Acute (3) Hypertension Code(s): I10 - ESSENTIAL (PRIMARY) HYPERTENSION Status: Acute (4) Thrush, oral Code(s): B37.0 - CANDIDAL STOMATITIS Status: Acute (5) H/O malignant neoplasm of thyroid Code(s): Z85.850 - PERSONAL HISTORY OF MALIGNANT NEOPLASM OF THYROID Status: Acute (6) Aspiration into airway Code(s): T17.908A - UNSP FB IN RESP TRACT, PART UNSP CAUSING OTH INJURY, INIT Status: Suspected <Paul Laguerre - Last Filed: 02/07/18 16:46> Attending Addendum - Attending Addendum Date/Time: 02/07/18 8965 I personally evaluated the patient and discussed the management with Dr. Mayer. I agree with and repeated the History, Examination, Assessment and Plan documented above with any addition or exceptions noted below. <Paul Laguerre - Last Filed: 02/07/18 16:46>
[2018-02-07] MEDS: Levothyroxine Sodium 100 MCG TAB PO SCH (06:09)
[2018-02-07] MEDS: Potassium Chloride 20 MEQ in Premix Bag 1 BAG IVPB SCH ×2 (06:44→08:15)
[2018-02-07] MEDS: Lorazepam 2 MG/ML VIAL SLOW IVP PRN (08:03)
[2018-02-07] MEDS: Famotidine/PF 20 mg/2ml Vial SLOW IVP SCH ×2 (08:03→20:46)
--- NOTE | 2018-02-07 08:29 | RAD ---
PORTABLE SEMI-UPRIGHT FRONTAL CHEST RADIOGRAPH: Date: 02-07-18 Comparison: 09-05-17 History: Ventilated patient. FINDINGS: Stable tracheostomy tube. Increased linear interstitial density with pulmonary hyperinflation suggest ing COPD, unchanged as well. No lobar consolidation or alveolar edema. IMPRESSION: Stable appearance of the chest. POS: NANCIE
[2018-02-07] MEDS: Nystatin 500,000 UNITS/5 ML UDCUP SSW SCH ×4 (09:48→20:47)
--- NOTE | 2018-02-07 12:29 | PRG ---
DATE OF SERVICE: 02/07/2018 Mr. Cruz is unchanged. He still requires sedation. He was unable to have his tracheostomy revisio n yesterday. PHYSICAL EXAMINATION: VITAL SIGNS: He is afebrile, heart rate 73. Blood pressure 128/81, respiratory rate 14. LUNGS: Clear. HEART: Regular rhythm. ABDOMEN: Soft. EXTREMITIES: Without edema. NEUROLOGIC: Nonfocal. LABORATORY DATA: White count 4.7, hemoglobin 11.6, platelets 108. Sodium 140, potassium 3, chloride 106, bicarb 24, BUN 5, creatinine 0.78. His coags were normal. IMPRESSION: 1. Status post tracheostomy for an anaplastic thyroid carcinoma. He did poorly with a 6 when I was taking care of him as an outpatient and has done much better with an 8. 2. Alcoholism with alcohol intoxication on admission. 3. Deconditioning and malnutrition secondary to his alcoholism. 4. Ongoing marijuana use. 5. Apical radiation pneumonitis. 6. Elevated liver enzymes that are mild secondary to alcoholism with normal coags and preserved synt hetic function. We will continue to follow. Once he is awakened from his tracheostomy revision then we will work on trying to wean him from mechanical ventilation which would be fairly quickly. Critical care time was 30 minutes.
[2018-02-07] MEDS ORDERED: PROPOFOL 200 MG/20 ML VIAL ONE (17:06)
[2018-02-07] MEDS ORDERED: Dexamethasone 20 MG/5 ML VIAL ONE (17:06)
[2018-02-07] MEDS ORDERED: Fentanyl 100 MCG/2 ML VIAL ONE (20:19)
[2018-02-07] MEDS ORDERED: Lidocaine 2% PF 5 ML VIAL ONE (21:22)
[2018-02-07] MEDS ORDERED: Bupivacaine HCl 0.5%/Epinephrine 1:200,000/PF 30 ml Vial ONE (21:22)
[2018-02-07] MEDS ORDERED: Midazolam HCl 2 mg/2 ml Vial ONE (21:43)
[2018-02-08] MEDS: Propofol 1,000 MG/100 ML VIAL IV PRN ×3 (01:33→08:57)
--- NOTE | 2018-02-08 04:01 | OP ---
DATE OF PROCEDURE: 02/07/2018 PREOPERATIVE DIAGNOSES: Tracheostomy stenosis, neglected tracheostomy, allow the stoma to close, nee ds revision. POSTOPERATIVE DIAGNOSES: Tracheostomy stenosis, neglected tracheostomy, allow the stoma to close, ne eds revision. PROCEDURES: 1. Revision of tracheostomy. 2. Shiley low pressure cuff. SURGEON: Dr. Ángel Machado ANESTHESIA: General. PROCEDURE: The patient was taken to the operating room where orally intubated him. I removed his #4 tracheostomy tube. His stoma and skin surrounding area was prepared with Betadine. Using careful p rocedure and suction, the stoma was small ellipse of skin from either side and then excising th e fibrotic tract down towards visualize endotracheal tube. Good hemostasis noted. #8 Shiley low pre ssure cuff was then placed under direct visualization into the trachea, balloon inflated as the endot lilian tube was removed. The patient tolerated the procedure well. Good hemostasis noted.
[2018-02-08 04:59] LABS: Anion Gap 10 mmol/L (10-20); BUN (Urea Nitrogen) 4 mg/dL (8.4-25.7); Calc. Creatinine Clearance 98 mL/min (70-130); Calcium 8.2 mg/dL (7.8-10.44); Carbon Dioxide 26 mmol/L (22-29); Chloride 108 mmol/L (98-107); Estimated GFR-MDRD Greater than 90; Glucose 204 mg/dL (70-105); Potassium 3.6 mmol/L (3.5-5.1); Sodium 140 mmol/L (136-145)
[2018-02-08 05:01] LABS: Band 3 % (5-11); Hemoglobin 11.6 g/dL (14.0-18.0); Hypochromia SLIGHT = 6-15 cells (100X) (0-5/hpf); Lymphocytes 2 % (21-51); MDiff Complete? YES; Mean Corpuscular HGB CONC 33.1 g/dL (32.0-36.0); Mean Corpuscular Hemoglobin 32.6 pg (27.0-31.0); Mean Corpuscular Volume 98.4 fL (78.0-98.0); Mean Platelet Volume 6.9 fL (7.4-10.4); Monocytes 2 % (0-10); Neutrophil 93 % (42-75); PLT Morphology Comment Appears Decreased; Platelet Count 113 thou/uL (130-400); RBC Distribution Width 12.5 % (11.5-14.5); Red Blood Cell (RBC) Count 3.56 mill/uL (4.70-6.10); White Blood Cell (WBC) Count 3.4 thou/uL (4.8-10.8)
[2018-02-08] MEDS: Dextrose 5 %-0.45 % NaCl 1,000 ML IV SCH ×2 (05:54→15:52)
[2018-02-08] MEDS: Levothyroxine Sodium 100 MCG TAB PO SCH (05:55)
--- NOTE | 2018-02-08 06:10 | PDOC.FM ---
- Subjective Subjective: Ángel Cruz seen at bedside this morning. He continues to be sedated on mechanical ventilation. Pt underwent tracheostomy revision yesterday to #8 Dc. Tolerated procedure well and did well on mechanical ventilation overnight. Plan is to wean him from vent this morning and transition him to trach collar. Current vent settings: f 13, Vt 470, Psupp 15, PEEP 5, FiO2 21% - Objective MAR Reviewed: Yes Vital Signs & Weight: Vital Signs (12 hours) Temp Pulse Resp Pulse Ox 02/08/18 04:00 97.7 F 13 02/08/18 02:35 60 02/08/18 02:00 13 02/08/18 00:00 97.6 F 13 99 02/07/18 20:00 97.4 F L 15 97 02/07/18 18:27 70 Weight Admit Weight 67.3 kg Weight 67.3 kg Most Recent Monitor Data Heart Rate from ECG 78 NIBP 171/88 NIBP BP-Mean 115 Respiration from ECG 15 SpO2 100 I&O: 02/06/18 02/07/18 02/08/18 06:59 06:59 06:59 Intake Total 3595 3457 1315 Output Total 2965 2905 2515 Balance 630 552 -1200 Result Diagrams: 02/08/18 04:09 02/08/18 04:09 <Steve Mayer - Last Filed: 02/08/18 08:58> - Objective Vital Signs & Weight: Vital Signs (12 hours) Temp Pulse Resp BP Pulse Ox 02/08/18 10:19 97 160/99 H 02/08/18 10:00 15 02/08/18 08:00 12 02/08/18 07:28 98 02/08/18 07:23 79 136/116 H 02/08/18 06:00 17 02/08/18 04:00 97.7 F 13 02/08/18 02:35 60 02/08/18 02:00 13 02/08/18 00:00 97.6 F 13 99 Weight Admit Weight 67.3 kg Weight 67.3 kg Most Recent Monitor Data Heart Rate from ECG 105 NIBP 160/99 NIBP BP-Mean 119 Respiration from ECG 12 SpO2 96 I&O: 02/07/18 02/08/18 02/09/18 06:59 06:59 06:59 Intake Total 3457 3055 Output Total 2905 2690 755 Balance 552 365 -755 Result Diagrams: 02/08/18 04:09 02/08/18 04:09 <Paul Laguerre - Last Filed: 02/08/18 10:47> Phys Exam - Physical Examination Constitutional: NAD HEENT: moist MMs Neck: no JVD, supple Respiratory: no wheezing, no rales, no rhonchi, clear to auscultation bilateral Cardiovascular: RRR, no significant murmur Gastrointestinal: soft, no distention Musculoskeletal: no edema Deviation from normal: sedated <Steve Mayer - Last Filed: 02/08/18 08:58> Dx/Plan (1) Respiratory failure with hypoxia and hypercapnia Code(s): J96.91 - RESPIRATORY FAILURE, UNSPECIFIED WITH HYPOXIA; J96.92 - RESPIRATORY FAILURE, UNSPECIFIED WITH HYPERCAPNIA Status: Acute (2) Alcohol abuse Code(s): F10.10 - ALCOHOL ABUSE, UNCOMPLICATED Status: Acute (3) Hypertension Code(s): I10 - ESSENTIAL (PRIMARY) HYPERTENSION Status: Acute (4) Thrush, oral Code(s): B37.0 - CANDIDAL STOMATITIS Status: Acute (5) H/O malignant neoplasm of thyroid Code(s): Z85.850 - PERSONAL HISTORY OF MALIGNANT NEOPLASM OF THYROID Status: Acute (6) Aspiration into airway Code(s): T17.908A - UNSP FB IN RESP TRACT, PART UNSP CAUSING OTH INJURY, INIT Status: Suspected - Plan Plan: Ángel Cruz is a 62 year old M being admitted for acute hypoxic hypercapneic respiratory failure 2/2 stoma occlusion. 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 Machado - ABG: not indicated - Vent Settings: SIMV- f 13, Vt 470, Psupp 15, PEEP 5, FiO2 21% - CTA chest: no PE, mucous formation within trachea just distal to tracheostomy with some aspiration in the left lower lobe - Pulm regimen: will consider adding duonebs or mucolytics s/p pressure support CV: Hypertension - RRR, no murmurs, rubs, gallops, normal cap refill, no JVD - BP 152/83 this morning - No antihypertensives on board at this time - No indication for CXR at this time GI: - abd NT/ND, Normoactive BS - GI ppx: pepcid - Diet: npo - speech therapy consulted for swallow eval - I/Os: +3000 mL since admission - D5 1/2 NS @ 125 ml/hr Heme: - H/H 11.6/35.1 - DVT Ppx: SCDs /Renal - voiding normally - Cr 0.78 ID: - thrush noted on exam at admission - Nystatin Day #5, plan to complete 7-14 day course - Tmax 98.3 - WBC 5.0 Endo: Hx of thyroid cancer s/p resection/chemo/radiation, hypothyroidism - TSH 0.0160, Free T4 0.97 - Will resume home dose of levothyroxine 100 mcg daily when patient is tolerating PO Skin: - normal skin exam - routine trach care Lines: - Left upper arm and right forearm peripheral IV Day #5 - Size 8 EET Day #2 Dispo: ready for d/c when cleared by pulm Code status: DNR <Steve Mayer - Last Filed: 02/08/18 08:58> (1) Respiratory failure with hypoxia and hypercapnia Code(s): J96.91 - RESPIRATORY FAILURE, UNSPECIFIED WITH HYPOXIA; J96.92 - RESPIRATORY FAILURE, UNSPECIFIED WITH HYPERCAPNIA Status: Acute (2) Alcohol abuse Code(s): F10.10 - ALCOHOL ABUSE, UNCOMPLICATED Status: Acute (3) Hypertension Code(s): I10 - ESSENTIAL (PRIMARY) HYPERTENSION Status: Acute (4) Thrush, oral Code(s): B37.0 - CANDIDAL STOMATITIS Status: Acute (5) H/O malignant neoplasm of thyroid Code(s): Z85.850 - PERSONAL HISTORY OF MALIGNANT NEOPLASM OF THYROID Status: Acute (6) Aspiration into airway Code(s): T17.908A - UNSP FB IN RESP TRACT, PART UNSP CAUSING OTH INJURY, INIT Status: Suspected <Paul Laguerre - Last Filed: 02/08/18 10:47> Attending Addendum - Attending Addendum Date/Time: 02/08/18 1043 I personally evaluated the patient and discussed the management with Dr. Mayer. I agree with and repeated the History, Examination, Assessment and Plan documented above with any addition or exceptions noted below. Patient when off propofol is quite altered and erratic, not following commands and requiring restraints to keep from pulling at tracheostomy. Likely 2/2 ETOH w/d. Will consider switch to precedex with ativan PRN and see if any improvement. <Paul Laguerre - Last Filed: 02/08/18 10:47>
[2018-02-08 07:46] LABS: Actual Bicarbonate (HCO3a) 22.1 mEq/L (22-28); Base Excess (BEa) 0.4 mEq/L (-2.0 to +3.0); CO2 Tension 27.8 mmHg (35.0-45.0); Calcium, Ionized 1.02 mmol/L (1.12-1.30); Carboxyhemoglobin (COHb) 0.8 gm% (0.0-3.0); Hemoglobin (Hb) 12.8 g/dL (14.0-18.0); O2 Tension (PaO2) 95.2 mmHg (> 80.0); Potassium - ABG Lab 3.25 mmol/L (3.70-5.30); Puncture Site RR; pH, Arterial 7.52 (7.35-7.45)
--- NOTE | 2018-02-08 08:16 | RAD ---
CHEST 1 VIEW: Date: 02/08/18 INDICATION: Intubation. COMPARISON: Prior dated 02/07/18 at 0425 hours. FINDINGS: Tracheostomy tube and upper midline sternotomy wires are similar appearing. The surgical clips adjace nt to the aortic knob are similar appearing. The pleural thickening seen involving the left upper hem ithorax near the left lung apex is similar. Chronic lung changes are stable. No acute osseous abnorma lity is noted. IMPRESSION: Stable exam. POS: NANCIE
--- NOTE | 2018-02-08 08:42 | PRG ---
DATE OF SERVICE: 02/08/2018 SUBJECTIVE: Mr. Ángel Cruz is doing well after tracheostomy revision. There has been no problem s with his tracheostomy site. The patient was weaned from the ventilator and today he can have his t racheostomy exchange for a fenestrated tracheal, Pulmonary wants to do that. At this point, I will s ee him as needed. Please call if necessary.
[2018-02-08] MEDS: Enoxaparin Sodium 40 MG/0.4 ML SYRINGE SC SCH (08:58)
[2018-02-08] MEDS: Famotidine/PF 20 mg/2ml Vial SLOW IVP SCH ×2 (08:58→20:05)
[2018-02-08] MEDS: Nystatin 500,000 UNITS/5 ML UDCUP SSW SCH ×4 (08:59→20:05)
[2018-02-08] MEDS: Lorazepam 2 MG/ML VIAL SLOW IVP PRN (10:03)
[2018-02-08] MEDS ORDERED: Haloperidol Lactate 5 MG/ML VIAL SLOW IVP SCH (10:45)
[2018-02-08] MEDS: Haloperidol Lactate 5 MG/ML VIAL IM SCH ×3 (10:53→20:03)
--- NOTE | 2018-02-08 13:10 | PRG ---
DATE OF SERVICE: 02/08/2018 Mr. Cruz still gets agitated when his sedation is turned off. PHYSICAL EXAMINATION: VITAL SIGNS: Heart rate 113, blood pressure 157/89, respiratory rates in the teens. LUNGS: Remarkable for coarse equal breath sounds. HEART: Regular rhythm. ABDOMEN: Soft and nontender. Chest radiograph today shows no new infiltrates. IMPRESSION: 1. Status post resection of an anaplastic thyroid carcinoma. 2. Alcohol intoxication on presentation. 3. Probable alcohol withdrawal. 4. Status post revision of a tracheostomy that he removed. He now has a #8 tracheostomy back in [facility]. 5. Apical radiation fibrosis. PLAN: Add in IV and IM Haldol to hopefully control his agitation. Weaning to a trach collar today.
--- NOTE | 2018-02-08 14:54 | PRG ---
DATE OF SERVICE: 02/08/2018 SUBJECTIVE: Mr. Cruz continues to be agitated when he is not sedated. We started him on Haldol today. OBJECTIVE: VITALS: Blood pressure 149/88, heart rates in the 80s, respiratory rates in teens. Oximetry is 100%. LUNGS: Clear. HEART: Regular rhythm. ABDOMEN: Soft. We are working towards trach collar with Haldol. Hopefully, this will control him. Critical care time with this morning with multiple evaluations 30 minutes total. LUIS
[2018-02-09] MEDS: Haloperidol Lactate 5 MG/ML VIAL IM SCH ×6 (01:15→19:46)
[2018-02-09] MEDS: Dextrose 5 %-0.45 % NaCl 1,000 ML IV SCH ×4 (01:16→22:41)
[2018-02-09 04:11] LABS: Band 12 % (5-11); Eosinophils 5 % (0-10); Hemoglobin 10.8 g/dL (14.0-18.0); Lymphocytes 17 % (21-51); MDiff Complete? YES; Mean Corpuscular Hemoglobin 32.8 pg (27.0-31.0); Mean Corpuscular Volume 96.5 fL (78.0-98.0); Mean Platelet Volume 6.6 fL (7.4-10.4); Monocytes 11 % (0-10); Neutrophil 55 % (42-75); PLT Morphology Comment Appears Decreased; Platelet Count 120 thou/uL (130-400); RBC Distribution Width 12.4 % (11.5-14.5); Red Blood Cell (RBC) Count 3.28 mill/uL (4.70-6.10); White Blood Cell (WBC) Count 5.2 thou/uL (4.8-10.8)
[2018-02-09 04:15] LABS: Anion Gap 11 mmol/L (10-20); BUN (Urea Nitrogen) 4 mg/dL (8.4-25.7); Calc. Creatinine Clearance 93 mL/min (70-130); Calcium 7.8 mg/dL (7.8-10.44); Carbon Dioxide 26 mmol/L (22-29); Chloride 106 mmol/L (98-107); Estimated GFR-MDRD Greater than 90; Glucose 121 mg/dL (70-105); Sodium 140 mmol/L (136-145)
[2018-02-09 04:19] LABS: Potassium 2.9 mmol/L (3.5-5.1)
--- NOTE | 2018-02-09 06:10 | PDOC.FM ---
- Subjective Subjective: Ángel Cruz seen at bedside this morning. He did well overnight, no acute events. From a respiratory standpoint, his O2 saturations were good overnight and maintained sats of 100% when he was taken off trach collar briefly. He should be ready to be transferred to floor or discharged today pending pulm recs. - Objective MAR Reviewed: Yes Vital Signs & Weight: Vital Signs (12 hours) Temp BP Pulse Ox 02/09/18 04:00 98.1 F 133/82 02/09/18 00:00 99.0 F 130/83 02/08/18 20:00 99.2 F 149/86 H 97 Weight Admit Weight 67.3 kg Weight 67.3 kg Most Recent Monitor Data Heart Rate from ECG 86 NIBP 150/95 NIBP BP-Mean 113 Respiration from ECG 14 SpO2 100 I&O: 02/07/18 02/08/18 02/09/18 06:59 06:59 06:59 Intake Total 3457 3055 2839.8 Output Total 2905 2690 1933 Balance 552 365 906.8 Result Diagrams: 02/09/18 03:23 02/09/18 03:23 <Steve Mayer - Last Filed: 02/09/18 07:13> - Objective Vital Signs & Weight: Vital Signs (12 hours) Temp BP Pulse Ox 02/09/18 12:00 133/76 02/09/18 08:00 136/86 100 02/09/18 04:00 98.1 F 133/82 Weight Admit Weight 67.3 kg Weight 67.3 kg Most Recent Monitor Data Heart Rate from ECG 75 NIBP 135/77 NIBP BP-Mean 96 Respiration from ECG 16 SpO2 100 I&O: 02/08/18 02/09/18 02/10/18 06:59 06:59 06:59 Intake Total 3055 2839.8 Output Total 2690 1973 490 Balance 365 866.8 -490 Result Diagrams: 02/09/18 03:23 02/09/18 03:23 <Paul Laguerre - Last Filed: 02/09/18 14:45> Phys Exam - Physical Examination Constitutional: NAD HEENT: moist MMs Neck: no JVD, supple Respiratory: no wheezing, no rales, no rhonchi, clear to auscultation bilateral Cardiovascular: RRR, no significant murmur Gastrointestinal: soft, non-tender Musculoskeletal: no edema, pulses present Skin: no rash, cap refill <2 seconds <Steve Mayer - Last Filed: 02/09/18 07:13> Dx/Plan (1) Respiratory failure with hypoxia and hypercapnia Code(s): J96.91 - RESPIRATORY FAILURE, UNSPECIFIED WITH HYPOXIA; J96.92 - RESPIRATORY FAILURE, UNSPECIFIED WITH HYPERCAPNIA Status: Acute (2) Alcohol abuse Code(s): F10.10 - ALCOHOL ABUSE, UNCOMPLICATED Status: Acute (3) Hypertension Code(s): I10 - ESSENTIAL (PRIMARY) HYPERTENSION Status: Acute (4) Thrush, oral Code(s): B37.0 - CANDIDAL STOMATITIS Status: Acute (5) H/O malignant neoplasm of thyroid Code(s): Z85.850 - PERSONAL HISTORY OF MALIGNANT NEOPLASM OF THYROID Status: Acute (6) Aspiration into airway Code(s): T17.908A - UNSP FB IN RESP TRACT, PART UNSP CAUSING OTH INJURY, INIT Status: Suspected - Plan Plan: Ángel Cruz is a 62 year old M being admitted for acute hypoxic hypercapneic respiratory failure 2/2 stoma occlusion. 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 Machado - ABG: not indicated - No longer on mech vent, doing well on trach collar - CTA chest: no PE, mucous formation within trachea just distal to tracheostomy with some aspiration in the left lower lobe - Pulm regimen: will consider adding duonebs or mucolytics s/p pressure support CV: Hypertension - RRR, no murmurs, rubs, gallops, normal cap refill, no JVD - BP 150/95 this morning - No antihypertensives on board at this time - No indication for CXR at this time GI: - abd NT/ND, Normoactive BS - GI ppx: pepcid - Diet: npo - speech therapy consulted for swallow eval, advance diet thereafter - I/Os: +4 L since admission - D5 1/2 NS @ 125 ml/hr Heme: - H/H 11.6/35.1 - DVT Ppx: SCDs /Renal - voiding normally - Cr 0.80 ID: - thrush noted on exam at admission - Nystatin Day #6, plan to complete 7-14 day course - Tmax 99.2 - WBC 5.2 Endo: Hx of thyroid cancer s/p resection/chemo/radiation, hypothyroidism - TSH 0.0160, Free T4 0.97 - Will resume home dose of levothyroxine 100 mcg daily when patient is tolerating PO Skin: - normal skin exam - routine trach care Lines: - Left upper arm and right forearm peripheral IV Day #6 - Size 8 EET Day #3 Dispo: ready for d/c when cleared by pulm Code status: DNR <Steve Mayer - Last Filed: 02/09/18 07:13> (1) Respiratory failure with hypoxia and hypercapnia Code(s): J96.91 - RESPIRATORY FAILURE, UNSPECIFIED WITH HYPOXIA; J96.92 - RESPIRATORY FAILURE, UNSPECIFIED WITH HYPERCAPNIA Status: Acute (2) Alcohol abuse Code(s): F10.10 - ALCOHOL ABUSE, UNCOMPLICATED Status: Acute (3) Hypertension Code(s): I10 - ESSENTIAL (PRIMARY) HYPERTENSION Status: Acute (4) Thrush, oral Code(s): B37.0 - CANDIDAL STOMATITIS Status: Acute (5) H/O malignant neoplasm of thyroid Code(s): Z85.850 - PERSONAL HISTORY OF MALIGNANT NEOPLASM OF THYROID Status: Acute (6) Aspiration into airway Code(s): T17.908A - UNSP FB IN RESP TRACT, PART UNSP CAUSING OTH INJURY, INIT Status: Suspected <Paul Laguerre - Last Filed: 02/09/18 14:45> Attending Addendum - Attending Addendum Date/Time: 02/09/18 1448 I personally evaluated the patient and discussed the management with Dr. Mayer. I agree with and repeated the History, Examination, Assessment and Plan documented above with any addition or exceptions noted below. Patient improved and off propofol gtt and on haldol + bzd. Replete K. On t- piece high flow. Likely xfer to [facility] today. <Paul Laguerre - Last Filed: 02/09/18 14:45>
[2018-02-09] MEDS: Levothyroxine Sodium 100 MCG TAB PO SCH (06:31)
[2018-02-09] MEDS: Potassium Chloride 40 MEQ in Sodium Chloride 0.9% 250 ML 250 ML IVPB SCH ×2 (06:31→10:50)
[2018-02-09] MEDS ORDERED: Diazepam 5 MG TAB PO PRN (07:28)
[2018-02-09] MEDS ORDERED: Diazepam 5 MG TAB PO SCH (07:30)
--- NOTE | 2018-02-09 08:12 | RAD ---
RADIOGRAPH CHEST 1 VIEW: Date: 02/09/18 Time: 0526 hours HISTORY: 62-year-old male with respiratory distress. COMPARISON: 02/08/18 at 0515 hours. FINDINGS: There are no air space densities, pulmonary edema, pneumothorax, or cardiomegaly. The lateral costop hrenic angles are sharp. There is a tracheostomy tube. There is a cluster of surgical clips overlying the medial upper left ch est. There are two sternotomy wires overlying the midline. There is no interval change overall. IMPRESSION: No acute cardiopulmonary findings. jn r POS: TPC
[2018-02-09] MEDS: Famotidine/PF 20 mg/2ml Vial SLOW IVP SCH ×2 (08:56→21:24)
[2018-02-09] MEDS: Enoxaparin Sodium 40 MG/0.4 ML SYRINGE SC SCH (08:56)
[2018-02-09] MEDS: Nystatin 500,000 UNITS/5 ML UDCUP SSW SCH ×4 (08:57→21:24)
[2018-02-09] MEDS: Multivitamin W/ Minerals 1 TAB PO SCH (10:27)
[2018-02-09] MEDS: Folic Acid 1 MG TAB PO SCH (10:27)
--- NOTE | 2018-02-09 11:00 | PRG ---
DATE OF SERVICE: 02/09/2018 SUBJECTIVE: Mr. Ángel Cruz remains on a trach collar. He has bloody secretions as expected. He is in no distress. He does not recall coming to the hospital. He does not recall being intoxicat ed. OBJECTIVE: VITAL SIGNS: His heart rates in the 70s, blood pressure 150/89, respiratory rate is in the teens, ox imetry is 100%. LUNGS: Remarkable for mild rhonchi, likely secondary to just tracheobronchial blood after his trache ostomy revision. HEART: Regular rhythm. ABDOMEN: Soft. LABORATORY DATA: White count 5.2, hemoglobin 10.8, platelets 120,000. Sodium 140, potassium 2.9, ch loride 106, bicarbonate 26, BUN 4, creatinine 0.8. IMPRESSION: 1. Status post intoxication and removal of his tracheostomy with partial tracheostomy closure requir ing revision. 2. Severe alcoholism. 3. Status post resection of an anaplastic thyroid carcinoma. PLAN: Continue supportive care. He can transfer out of the Critical Care Unit in my opinion.
[2018-02-09] MEDS: Multivitamins, Adult 10 ML, Folic Acid 1 MG, Thiamine HCl 100 MG in Dextrose 5 %-0.45 %... IV SCH (11:15)
[2018-02-10] MEDS: Haloperidol Lactate 5 MG/ML VIAL IM SCH ×5 (00:02→16:08)
[2018-02-10] MEDS: Dextrose 5 %-0.45 % NaCl 1,000 ML IV SCH ×4 (01:52→22:16)
[2018-02-10] MEDS ORDERED: Diazepam 5 MG TAB PO PRN (04:00)
[2018-02-10 05:13] LABS: Band 13 % (5-11); Eosinophils 1 % (0-10); Hemoglobin 11.8 g/dL (14.0-18.0); Lymphocytes 4 % (21-51); MDiff Complete? YES; Mean Corpuscular HGB CONC 33.8 g/dL (32.0-36.0); Mean Corpuscular Hemoglobin 32.5 pg (27.0-31.0); Mean Corpuscular Volume 96.1 fL (78.0-98.0); Mean Platelet Volume 6.9 fL (7.4-10.4); Monocytes 10 % (0-10); Neutrophil 72 % (42-75); PLT Morphology Comment Appears Adequate; Platelet Count 142 thou/uL (130-400); RBC Distribution Width 12.4 % (11.5-14.5); RBC Morphology Normal; Red Blood Cell (RBC) Count 3.63 mill/uL (4.70-6.10); White Blood Cell (WBC) Count 6.9 thou/uL (4.8-10.8)
[2018-02-10 05:14] LABS: Anion Gap 13 mmol/L (10-20); BUN (Urea Nitrogen) 5 mg/dL (8.4-25.7); Calc. Creatinine Clearance 102 mL/min (70-130); Calcium 8.2 mg/dL (7.8-10.44); Carbon Dioxide 21 mmol/L (22-29); Chloride 105 mmol/L (98-107); Estimated GFR-MDRD Greater than 90; Glucose 114 mg/dL (70-105); Potassium 3.4 mmol/L (3.5-5.1); Sodium 136 mmol/L (136-145)
--- NOTE | 2018-02-10 06:01 | PDOC.FM ---
- Subjective Subjective: Mr. Cruz is resting comfortably in bed, denies pain. He is adequately sedated with good O2 saturation on trach collar. - Objective Vital Signs & Weight: Vital Signs (12 hours) Temp Pulse Resp BP BP Pulse Ox 02/10/18 04:34 99.4 F 99 15 151/92 H 96 02/10/18 00:34 98.8 F 97 14 143/98 H 100 02/09/18 20:00 143/98 H 100 02/09/18 19:44 98.8 F 101 H 12 176/89 H 100 Weight Admit Weight 67.3 kg Weight 67.3 kg Most Recent Monitor Data Heart Rate from ECG 83 NIBP 157/101 NIBP BP-Mean 119 Respiration from ECG 8 SpO2 100 I&O: 02/08/18 02/09/18 02/10/18 06:59 06:59 06:59 Intake Total 3055 2839.8 1562 Output Total 2691972 790 Balance 365 866.8 772 Result Diagrams: 02/10/18 03:48 02/10/18 03:48 <Mitch Naranjo - Last Filed: 02/10/18 07:28> - Objective Vital Signs & Weight: Vital Signs (12 hours) Temp Pulse Resp BP BP Pulse Ox 02/10/18 08:00 145/73 H 100 02/10/18 07:35 98.3 F 89 17 145/73 H 100 02/10/18 04:34 99.4 F 99 15 151/92 H 96 02/10/18 00:34 98.8 F 97 14 143/98 H 100 Weight Admit Weight 67.3 kg Weight 67.3 kg Most Recent Monitor Data Heart Rate from ECG 83 NIBP 157/101 NIBP BP-Mean 119 Respiration from ECG 8 SpO2 100 I&O: 02/09/18 02/10/18 02/11/18 06:59 06:59 06:59 Intake Total 2839.8 1562 Output Total 1973 790 Balance 866.8 772 Result Diagrams: 02/10/18 03:48 02/10/18 03:48 <Trena Workman - Last Filed: 02/10/18 10:36> Phys Exam - Physical Examination Constitutional: NAD HEENT: moist MMs Neck: no JVD Respiratory: no wheezing, no rales, no rhonchi Cardiovascular: RRR, no significant murmur, no rub Gastrointestinal: soft, non-tender, no distention Musculoskeletal: no edema, pulses present Neurological: non-focal, moves all 4 limbs Lymphatic: no nodes Skin: no rash <Mitch Naranjo - Last Filed: 02/10/18 07:28> Dx/Plan (1) Hypertension Code(s): I10 - ESSENTIAL (PRIMARY) HYPERTENSION Status: Acute (2) Respiratory failure with hypoxia and hypercapnia Code(s): J96.91 - RESPIRATORY FAILURE, UNSPECIFIED WITH HYPOXIA; J96.92 - RESPIRATORY FAILURE, UNSPECIFIED WITH HYPERCAPNIA Status: Acute (3) Thrush, oral Code(s): B37.0 - CANDIDAL STOMATITIS Status: Acute (4) Alcohol withdrawal Code(s): F10.239 - ALCOHOL DEPENDENCE WITH WITHDRAWAL, UNSPECIFIED Status: Acute (5) H/O malignant neoplasm of thyroid Code(s): Z85.850 - PERSONAL HISTORY OF MALIGNANT NEOPLASM OF THYROID Status: Acute (6) Hypokalemia Code(s): E87.6 - HYPOKALEMIA Status: Acute (7) Hypomagnesemia Code(s): E83.42 - HYPOMAGNESEMIA Status: Acute (8) Transaminitis Code(s): R74.0 - NONSPEC ELEV OF LEVELS OF TRANSAMNS & LACTIC ACID DEHYDRGNSE Status: Acute - Plan Plan: Ángel Cruz is a 62 year old M being admitted for acute hypoxic hypercapneic respiratory failure 2/2 stoma occlusion. 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 Machado - ABG: not indicated - No longer on mech vent, doing well on trach collar - CTA chest: no PE, mucous formation within trachea just distal to tracheostomy with some aspiration in the left lower lobe - Pulm regimen: will consider adding duonebs or mucolytics s/p pressure support CV: Hypertension - RRR, no murmurs, rubs, gallops, normal cap refill, no JVD - BP 151/92 this morning - No antihypertensives on board at this time - No indication for CXR at this time GI: - abd NT/ND, Normoactive BS - GI ppx: pepcid - Diet: npo - speech therapy consulted for swallow eval, advance diet thereafter - I/Os: +4.5 L since admission - D5 1/2 NS @ 125 ml/hr Heme: - H/H 11.6/35.1 - DVT Ppx: SCDs /Renal - voiding normally - Cr 0.80 ID: - thrush noted on exam at admission - Nystatin Day #6, plan to complete 7-14 day course - Tmax 99.2 - WBC 5.2 Endo: Hx of thyroid cancer s/p resection/chemo/radiation, hypothyroidism - TSH 0.0160, Free T4 0.97 - Will resume home dose of levothyroxine 100 mcg daily when patient is tolerating PO Skin: - normal skin exam - routine trach care Lines: - Left upper arm and right forearm peripheral IV Day #7 - Size 8 EET Day #4 Dispo: ready for d/c when cleared by pulm Code status: DNR <Mitch Naranjo - Last Filed: 02/10/18 07:28> Attending Addendum - Attending Addendum Date/Time: 02/10/18 1035 I personally evaluated the patient and discussed the management with Dr. Naranjo. I agree with the History, Examination, Assessment and Plan documented above with any addition or exceptions noted below. Patient remains on trach collar. Will try to wean off O2. Still waiting on speech to assess swallowing. <Trena Workman - Last Filed: 02/10/18 10:36>
[2018-02-10] MEDS: Levothyroxine Sodium 100 MCG TAB PO SCH (07:37)
[2018-02-10] MEDS: Nystatin 500,000 UNITS/5 ML UDCUP SSW SCH ×4 (08:22→20:09)
[2018-02-10] MEDS: Famotidine/PF 20 mg/2ml Vial SLOW IVP SCH ×2 (08:22→20:09)
[2018-02-10] MEDS: Enoxaparin Sodium 40 MG/0.4 ML SYRINGE SC SCH (08:23)
[2018-02-10] MEDS: Magnesium Oxide 400 MG TAB PO SCH (08:24)
[2018-02-10] MEDS: Folic Acid 1 MG TAB PO SCH (08:24)
[2018-02-10] MEDS: Multivitamin W/ Minerals 1 TAB PO SCH (08:24)
--- NOTE | 2018-02-10 09:36 | RAD ---
PORTABLE CHEST 1 VIEW: Date: 02/10/18 Time: 0458 hours HISTORY: Respiratory failure. FINDINGS: Comparison made with exam from previous day. Tracheostomy tube remains in place. Changes of median sternotomy again seen. Surgical clips in the lo wer neck and upper chest are again noted. The heart size is normal. The lungs are expanded without fo alicia areas of consolidation, pneumothorax, or pleural effusions. Old, healed fracture of the left clav icle. IMPRESSION: No acute process. POS: NANCIE
[2018-02-10] MEDS: Multivitamins, Adult 10 ML, Folic Acid 1 MG, Thiamine HCl 100 MG in Dextrose 5 %-0.45 %... IV SCH (11:25)
--- NOTE | 2018-02-10 15:33 | PRG ---
DATE OF SERVICE: 02/10/2018 SUBJECTIVE: This morning, he is awake, responsive, he has got a trach in place, appears to be in no distress, though he has large amount of secretions. OBJECTIVE: VITAL SIGNS: Blood pressure 153/93, sats are 99, respiration 16, temperature 98. CHEST: Bilateral rhonchi and crackles. CARDIAC: Normal S1, S2. ABDOMEN: No gallops or masses. LABORATORY DATA: White count 6.9, H and H is 9 and 34, platelet count and electrolytes are normal. His x-ray today shows no acute infiltrates. IMPRESSION: Chronic obstructive pulmonary disease, trach, encephalopathy. PLAN: Continue supportive care and PT, neb treatments. We will follow.
[2018-02-10] MEDS ORDERED: Haloperidol Lactate 5 MG/ML VIAL IM PRN (18:57)
[2018-02-11 04:20] LABS: Band 16 % (5-11); Hemoglobin 10.9 g/dL (14.0-18.0); Lymphocytes 5 % (21-51); MDiff Complete? YES; Mean Corpuscular HGB CONC 33.5 g/dL (32.0-36.0); Mean Corpuscular Volume 95.5 fL (78.0-98.0); Mean Platelet Volume 6.5 fL (7.4-10.4); Monocytes 4 % (0-10); Neutrophil 75 % (42-75); PLT Morphology Comment Appears Adequate; Platelet Count 165 thou/uL (130-400); RBC Distribution Width 12.4 % (11.5-14.5); RBC Morphology Normal; White Blood Cell (WBC) Count 7.4 thou/uL (4.8-10.8)
[2018-02-11 04:27] LABS: Anion Gap 12 mmol/L (10-20); BUN (Urea Nitrogen) 6 mg/dL (8.4-25.7); Calc. Creatinine Clearance 105 mL/min (70-130); Calcium 7.9 mg/dL (7.8-10.44); Carbon Dioxide 22 mmol/L (22-29); Chloride 104 mmol/L (98-107); Estimated GFR-MDRD Greater than 90; Glucose 113 mg/dL (70-105); Potassium 3.1 mmol/L (3.5-5.1); Sodium 135 mmol/L (136-145)
[2018-02-11] MEDS: Levothyroxine Sodium 100 MCG TAB PO SCH (05:58)
--- NOTE | 2018-02-11 06:48 | PDOC.FM ---
- Subjective Subjective: Mr. Cruz is resting comfortably in bed, he reports no pain or shortness of breath. He says he is ready to go home, much less sedated today. - Objective Vital Signs & Weight: Vital Signs (12 hours) Temp Pulse Resp BP BP Pulse Ox 02/11/18 04:24 98.9 F 76 12 116/71 96 02/11/18 04:04 116/71 02/11/18 00:21 98.8 F 78 23 H 108/62 96 02/11/18 00:20 108/62 02/10/18 20:09 133/77 02/10/18 19:25 99.6 F 81 17 133/77 100 Weight Admit Weight 67.3 kg Weight 67.3 kg Most Recent Monitor Data Heart Rate from ECG 83 NIBP 157/101 NIBP BP-Mean 119 Respiration from ECG 8 SpO2 100 I&O: 02/09/18 02/10/18 02/11/18 06:59 06:59 06:59 Intake Total 2839.8 1562 1022 Output Total 0305 818 8471 Balance 866.8 772 -253 Result Diagrams: 02/11/18 03:44 02/11/18 03:44 <Mitch Naranjo - Last Filed: 02/11/18 07:34> - Objective Vital Signs & Weight: Vital Signs (12 hours) Temp Pulse Pulse Pulse Resp BP BP 02/11/18 13:38 132/76 02/11/18 13:37 99 F 82 16 02/11/18 11:00 02/11/18 10:56 99 F 92 20 02/11/18 09:25 85 91 126/75 02/11/18 07:48 116/74 02/11/18 07:15 99.2 F 87 20 02/11/18 04:24 98.9 F 76 12 02/11/18 04:04 116/71 BP BP BP Pulse Ox Pulse Ox Pulse Ox 02/11/18 13:38 02/11/18 13:37 132/76 100 02/11/18 11:00 100 02/11/18 10:56 127/81 100 02/11/18 09:25 117/62 130/80 98 100 02/11/18 07:48 02/11/18 07:15 134/72 96 02/11/18 04:24 116/71 96 02/11/18 04:04 Weight Admit Weight 67.3 kg Weight 64.92 kg Most Recent Monitor Data Heart Rate from ECG 83 NIBP 157/101 NIBP BP-Mean 119 Respiration from ECG 8 SpO2 100 I&O: 02/10/18 02/11/18 02/12/18 06:59 06:59 06:59 Intake Total 1562 1022 Output Total 790 1275 Balance 772 -253 Result Diagrams: 02/11/18 03:44 02/11/18 03:44 <Trena Workman - Last Filed: 02/11/18 14:51> Phys Exam - Physical Examination Constitutional: NAD HEENT: moist MMs Neck: no JVD Respiratory: no wheezing, no rales, no rhonchi Cardiovascular: RRR, no significant murmur, no rub Gastrointestinal: soft, non-tender Musculoskeletal: no edema, pulses present Neurological: non-focal, moves all 4 limbs Lymphatic: no nodes Psychiatric: normal affect Skin: no rash <Mitch Naranjo - Last Filed: 02/11/18 07:34> Dx/Plan (1) Hypertension Code(s): I10 - ESSENTIAL (PRIMARY) HYPERTENSION Status: Acute (2) Respiratory failure with hypoxia and hypercapnia Code(s): J96.91 - RESPIRATORY FAILURE, UNSPECIFIED WITH HYPOXIA; J96.92 - RESPIRATORY FAILURE, UNSPECIFIED WITH HYPERCAPNIA Status: Acute (3) Thrush, oral Code(s): B37.0 - CANDIDAL STOMATITIS Status: Acute (4) Alcohol withdrawal Code(s): F10.239 - ALCOHOL DEPENDENCE WITH WITHDRAWAL, UNSPECIFIED Status: Acute (5) H/O malignant neoplasm of thyroid Code(s): Z85.850 - PERSONAL HISTORY OF MALIGNANT NEOPLASM OF THYROID Status: Acute (6) Hypokalemia Code(s): E87.6 - HYPOKALEMIA Status: Acute (7) Hypomagnesemia Code(s): E83.42 - HYPOMAGNESEMIA Status: Acute (8) Transaminitis Code(s): R74.0 - NONSPEC ELEV OF LEVELS OF TRANSAMNS & LACTIC ACID DEHYDRGNSE Status: Acute - Plan Plan: Ángel Cruz is a 62 year old M admitted for acute hypoxic hypercapneic respiratory failure 2/2 stoma occlusion. 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 Martinez and Speech Therapy Trach revision performed on 02/07, #8 Shiley placed [employer]ER: Hx of alcohol abuse - Alert and oriented X3 when not sedated, currently mildly sedated on trach collar - Sedation/Meds: Propofol, Ativan - Ativan for agitation/tremors, on ASE Protocol due to hx of alcohol abuse RESP: Acute hypoxic hypercapneic respiratory failure - size 8 ETT, placed 02/07 s/p revision with Dr. Machado - ABG: not indicated - No longer on mech vent, doing well on trach collar - CTA chest: no PE, mucous formation within trachea just distal to tracheostomy with some aspiration in the left lower lobe - Pulm regimen: will consider adding duonebs or mucolytics s/p pressure support CV: Hypertension - RRR, no murmurs, rubs, gallops, normal cap refill, no JVD - No antihypertensives on board at this time - No indication for CXR at this time GI: - abd NT/ND, Normoactive BS - GI ppx: pepcid - Diet: npo - speech therapy recommeds remaining NPO consider enteral feeds - pt has been non-compliant with diet recs in past, palliative care consulted - I/Os: +4 L since admission - D5 1/2 NS @ 75 ml/hr /Renal - brothers in place ID: - thrush noted on exam at admission - Nystatin Day #6, plan to complete 7-14 day course - Tmax 99.2 Endo: Hx of thyroid cancer s/p resection/chemo/radiation, hypothyroidism - TSH 0.0160, Free T4 0.97 - Will resume home dose of levothyroxine 100 mcg daily when patient is tolerating PO Skin: - normal skin exam - routine trach care Lines: - Left upper arm and right forearm peripheral IV Day #7 - Size 8 EET Day #4 Dispo: transition to medical today, continue ASE protocol, librium taper Code status: DNR <Mitch Naranjo - Last Filed: 02/11/18 07:34> Attending Addendum - Attending Addendum Date/Time: 02/11/18 0849 I personally evaluated the patient and discussed the management with Dr. Naranjo. I agree with the History, Examination, Assessment and Plan documented above with any addition or exceptions noted below. The patient will transfer to medical. Speech reports he is not safe to swallow but he was doing it anyway at home and is at high risk for aspiration. Pt is on humidified air through trach collar. We have concerns about the pt's ability to care for himself at home. Appreciate palliative care helping with goals of care. Will get case mgmt to assist with discharge planning. <Trena Workman - Last Filed: 02/11/18 14:51>
[2018-02-11] MEDS ORDERED: Magnesium 2 GM/50 ML 2 GM in Premix Bag 1 BAG IVPB SCH (08:15)
[2018-02-11] MEDS: Dextrose 5 %-0.45 % NaCl 1,000 ML IV SCH ×3 (08:53→20:24)
[2018-02-11] MEDS: Nystatin 500,000 UNITS/5 ML UDCUP SSW SCH ×4 (08:55→20:22)
[2018-02-11] MEDS: Famotidine/PF 20 mg/2ml Vial SLOW IVP SCH ×2 (08:55→20:22)
[2018-02-11] MEDS: Enoxaparin Sodium 40 MG/0.4 ML SYRINGE SC SCH (08:55)
--- NOTE | 2018-02-11 08:58 | RAD ---
RADIOGRAPH CHEST 1 VIEW: Date: 02/11/18 Time: 0413 hours HISTORY: 62-year-old male on mechanical ventilation for respiratory distress. FINDINGS: There are no air space densities, pulmonary edema, pneumothorax, or cardiomegaly. The lateral costop hrenic angles are sharp. Tracheostomy tube, left upper medial surgical clips, and cerclage wires at upper midline, are again n oted. There is no interval change overall since 02/10/18 at 0458 hours. IMPRESSION: No acute cardiopulmonary findings. mo [] POS: [facility]
[2018-02-11] MEDS: Folic Acid 1 MG TAB PO SCH (09:36)
[2018-02-11] MEDS: Magnesium Oxide 400 MG TAB PO SCH (09:37)
[2018-02-11] MEDS: Multivitamins, Adult 10 ML, Folic Acid 1 MG, Thiamine HCl 100 MG in Dextrose 5 %-0.45 %... IV SCH (11:48)
--- NOTE | 2018-02-11 12:10 | PRG ---
DATE OF SERVICE: 02/11/2018 SUBJECTIVE: A 62-year-old gentleman with trach in place. He is doing better, a lot of secretions. OBJECTIVE: VITALS: Blood pressure 116/74, temperature 99, respirations 20, sats are 98%. CHEST: Extensive rhonchi and crackles. CARDIAC: Normal S1, S2. ABDOMEN: Soft, no masses. DIAGNOSTIC DATA: White count 7000. Electrolytes are normal. He had a chest x-ray taken today which shows no acute infiltrates. IMPRESSION: Chronic obstructive pulmonary disease exacerbation, bronchitis, tracheostomy. PLAN: Continue present treatment, PT, eventually placement.
[2018-02-12] MEDS ORDERED: Nystatin Powder 15 GM BOT TOP PRN (02:07)
[2018-02-12] MEDS ORDERED: Boudreaux's Butt Paste 16% Oin 30 GM TUBE TOP PRN (02:24)
[2018-02-12 04:49] LABS: Anion Gap 12 mmol/L (10-20); BUN (Urea Nitrogen) 7 mg/dL (8.4-25.7); Calc. Creatinine Clearance 99 mL/min (70-130); Calcium 7.8 mg/dL (7.8-10.44); Carbon Dioxide 23 mmol/L (22-29); Chloride 103 mmol/L (98-107); Estimated GFR-MDRD Greater than 90; Glucose 105 mg/dL (70-105); Magnesium 1.4 mg/dL (1.6-2.6); Sodium 135 mmol/L (136-145)
[2018-02-12 04:56] LABS: Potassium 2.9 mmol/L (3.5-5.1)
[2018-02-12 04:57] LABS: Band 2 % (5-11); Hemoglobin 10.7 g/dL (14.0-18.0); Hypochromia SLIGHT = 6-15 cells (100X) (0-5/hpf); Lymphocytes 7 % (21-51); MDiff Complete? YES; Mean Corpuscular HGB CONC 34.3 g/dL (32.0-36.0); Mean Corpuscular Hemoglobin 32.7 pg (27.0-31.0); Mean Corpuscular Volume 95.3 fL (78.0-98.0); Mean Platelet Volume 6.7 fL (7.4-10.4); Monocytes 13 % (0-10); Neutrophil 78 % (42-75); PLT Morphology Comment Appears Adequate; Platelet Count 256 thou/uL (130-400); Polychromasia SLIGHT = 2-3 cells (100X) (0-2/hpf); RBC Distribution Width 12.5 % (11.5-14.5); Red Blood Cell (RBC) Count 3.28 mill/uL (4.70-6.10); White Blood Cell (WBC) Count 6.8 thou/uL (4.8-10.8)
[2018-02-12] MEDS: Levothyroxine Sodium 100 MCG TAB PO SCH ×2 (05:13→05:54)
--- NOTE | 2018-02-12 06:56 | PDOC.FM ---
- Subjective Subjective: Patient tearful this AM. He endorses being depressed. He states he is under a lot of pressure to take care of his . He loves her dearly and wants to be home with her. We had a lengthy discussion this AM about his desires and goals of care. He states that he does not want a PEG tube or any other assisted feeding device. He wants to go home and be able to cook and eat how he wants to. He states he has been living this way for several years. He understands the risks of aspirating and is ok with those risks. We discussed hospice. At first he was opposed to hospice, but after further discussion he is open to the idea and is willing to discuss with palliative care. He understands that they can assist him in his needs. - Objective MAR Reviewed: Yes Vital Signs & Weight: Vital Signs (12 hours) Temp Pulse Resp BP BP Pulse Ox 02/12/18 04:16 98.7 F 86 20 127/84 02/12/18 04:00 127/84 02/12/18 00:00 98.7 F 84 20 132/84 132/84 02/11/18 20:00 99.6 F 86 20 152/83 H 152/83 H 100 Weight Admit Weight 67.3 kg Weight 64.92 kg Most Recent Monitor Data Heart Rate from ECG 83 NIBP 157/101 NIBP BP-Mean 119 Respiration from ECG 8 SpO2 100 I&O: 02/10/18 02/11/18 02/12/18 06:59 06:59 06:59 Intake Total 1562 1022 1470 Output Total 790 1275 1700 Balance 612 -699 -077 Result Diagrams: 02/12/18 03:39 02/12/18 03:39 EKG Reviewed by me: Yes Radiology Reviewed by me: Yes <Ambika Garza - Last Filed: 02/12/18 10:01> - Objective Vital Signs & Weight: Vital Signs (12 hours) Temp Pulse Resp BP BP Pulse Ox 02/12/18 10:47 98.9 F 83 20 137/78 100 02/12/18 10:17 70 12 02/12/18 08:01 98.5 F 65 20 126/71 99 02/12/18 08:00 126/71 02/12/18 04:16 98.7 F 86 20 127/84 02/12/18 04:00 127/84 02/12/18 00:00 98.7 F 84 20 132/84 132/84 Weight Admit Weight 67.3 kg Weight 64.92 kg Most Recent Monitor Data Heart Rate from ECG 83 NIBP 157/101 NIBP BP-Mean 119 Respiration from ECG 8 SpO2 100 I&O: 02/11/18 02/12/18 02/13/18 06:59 06:59 06:59 Intake Total 1022 1470 Output Total 1275 1700 Balance -253 -230 Result Diagrams: 02/12/18 03:39 02/12/18 03:39 <Charity Santo - Last Filed: 02/12/18 11:02> Phys Exam - Physical Examination Constitutional: NAD HEENT: moist MMs Neck: supple Upper respiratory sounds transmitted throughout Trach in place with humidified air Cardiovascular: RRR Gastrointestinal: soft, non-tender Musculoskeletal: no edema, pulses present Neurological: non-focal Deviation from normal: tearful on exam Skin: no rash, cap refill <2 seconds <Ambika Garza - Last Filed: 02/12/18 10:01> Dx/Plan (1) Alcohol abuse Code(s): F10.10 - ALCOHOL ABUSE, UNCOMPLICATED Status: Chronic (2) Hypertension Code(s): I10 - ESSENTIAL (PRIMARY) HYPERTENSION Status: Chronic (3) Respiratory failure with hypoxia and hypercapnia Code(s): J96.91 - RESPIRATORY FAILURE, UNSPECIFIED WITH HYPOXIA; J96.92 - RESPIRATORY FAILURE, UNSPECIFIED WITH HYPERCAPNIA Status: Resolved (4) Alcohol withdrawal Code(s): F10.239 - ALCOHOL DEPENDENCE WITH WITHDRAWAL, UNSPECIFIED Status: Resolved (5) H/O malignant neoplasm of thyroid Code(s): Z85.850 - PERSONAL HISTORY OF MALIGNANT NEOPLASM OF THYROID Status: Chronic (6) Hypokalemia Code(s): E87.6 - HYPOKALEMIA Status: Acute (7) Hypomagnesemia Code(s): E83.42 - HYPOMAGNESEMIA Status: Acute (8) Non compliance with medical treatment Code(s): Z91.19 - PATIENT'S NONCOMPLIANCE W OTH MEDICAL TREATMENT AND REGIMEN Status: Chronic - Plan Plan: Acute hypoxic hypercapneic respiratory failure 2/2 stoma occlusion, resolved - Trach revision 02/07, #8 Shiley placed - Pulmonology consulted; appreciate recs - General surgery consulted; appreciate recs - Doing well on trach collar with humidified air - CTA chest negative for PE; mucous formation within trachea just distal to tracheostomy with some aspiration in the left lower lobe - Consider duonebs or mucolytics EtOH withdrawal with history of EtOH abuse - ASE scores of 2-9 - Off sedation - Continue ASE protocol - Patient endorses intent to quit drinking due to his desire to live Hypertension - No antihypertensives on board at this time - Has not required PRN medications - Recent CXR showed no acute process Risk for aspiration 2/2 - Speech therapy recommends patient be NPO and consider PEG tube - Patient adamantly declines PEG tube placement; he would like to go home and resume diet as he has previously - GI ppx with Pepcid - Palliative care consulted; appreciate recs - D5 1/2 NS @ 75 ml/hr Oral thrush - Nystatin Day #7, plan to complete 7-14 day course - Tmax 99.9 Hx of thyroid cancer s/p resection/chemo/radiation, hypothyroidism - TSH 0.0160, Free T4 0.97 - Resume home dose of levothyroxine 100 mcg daily when patient is tolerating PO Lines: - Left upper arm and right forearm peripheral IV Day #8 - Size 8 EET Day #5 - Morin d/c'd today Tobacco abuse - Nicotine patch PRN Dispo: Stable. Plan to discuss hospice with palliative care. Code status: DNR <Ambika Garza - Last Filed: 02/12/18 10:01> Attending Addendum - Attending Addendum Date/Time: 02/12/18 [id number] I personally evaluated the patient and discussed the management with Dr. Garza I agree with the History, Examination, Assessment and Plan documented above with any addition or exceptions noted below- Patient sitting up in bed in no acute distress. Afebrile VSS. A/P: 1) Acute hypoxic hypercapneic resp failure secondary to stoma occlusion- resolved; trach revised, now on humidified O2. 2) Dysphagia/aspiration risk - patient declines PEG tube placement. Patient aware of aspiration risks and desires to continue with oral intake. Contionue speech therapy while here and probable outpatient/home ST. 3) HTN- continue home meds. 4) Depression- resident discussed with patient; considering trial of medication. 5) Disposition- plan for palliative consult today to help with goals of care. Plan for home with either hospice or home health <Charity Santo - Last Filed: 02/12/18 11:02>
[2018-02-12] MEDS ORDERED: Potassium Chloride 40 MEQ in Sodium Chloride 0.9% 250 ML 250 ML IVPB SCH (07:00)
--- NOTE | 2018-02-12 07:55 | RAD ---
PORTABLE CHEST ONE VIEW: 02/12/2018 7:19 a.m. HISTORY: Respiratory failure. COMPARISON: Exam from the previous day. FINDINGS: Tracheostomy tube remains in place. Postop changes in the upper chest noted. Heart size normal. Emily ngs well expanded without focal areas of consolidation, pneumothoraces, or pleural effusions. IMPRESSION: No acute process. POS: [facility]
[2018-02-12] MEDS: Nystatin 500,000 UNITS/5 ML UDCUP SSW SCH ×2 (09:29→12:06)
[2018-02-12] MEDS: Famotidine/PF 20 mg/2ml Vial SLOW IVP SCH (09:29)
[2018-02-12] MEDS: Enoxaparin Sodium 40 MG/0.4 ML SYRINGE SC SCH (09:30)
[2018-02-12] MEDS: Folic Acid 1 MG TAB PO SCH (09:30)
[2018-02-12] MEDS: Magnesium Oxide 400 MG TAB PO SCH (09:30)
[2018-02-12 10:50] VITALS: BP 137/78; TEMP 98.9
[2018-02-12] MEDS ORDERED: Escitalopram Oxalate 10 mg Tablet PO SCH (11:12)
[2018-02-12] MEDS: Multivitamins, Adult 10 ML, Folic Acid 1 MG, Thiamine HCl 100 MG in Dextrose 5 %-0.45 %... IV SCH (13:18)
[2018-02-13] MEDS ORDERED: Escitalopram Oxalate 10 mg Tablet PO SCH (09:00)
--- NOTE | 2018-02-13 13:34 | DIS-2 ---
DATE OF ADMISSION: 02/04/2018 DATE OF DISCHARGE: 02/12/2018 ADMITTING ATTENDING: Paul Laguerre M.D. DISCHARGE ATTENDING: Charity Santo M.D. RESIDENT: Ambika Garza D.O. CONSULTATIONS: 1. Pulmonology, Dr. Tolu Martinez. 2. General surgery, Dr. Ángel Machado. 3. Case management. 4. Physical therapy. 5. Speech Therapy. PROCEDURES: 1. Chest/thorax CTA showed no proximal segmental pulmonary arterial filling defect. There was some mucus formation within the trachea just distal to the tracheostomy with some aspiration within the left lower lobe. 2. Chest x-ray showed no acute findings. 3. Revision of tracheostomy on 02/07/2018 with # 8 Shiley low pressure cuff. PRIMARY DIAGNOSES: 1. Acute on chronic hypoxic hypercapnic respiratory failure secondary to occlusion of the stoma. 2. Alcohol withdrawal with history of alcohol abuse. 3. Hypertension. 4. Dysphagia with higher risk of aspiration secondary to complications from thyroid cancer. 5. Oral thrush. 6. History of thyroid cancer, status post resection/chemo/radiation with resultant hypothyroidism. 7. Tobacco abuse. DISCHARGE MEDICATIONS: 1. Hydrocodone/acetaminophen 10 mg/300 mg tablet 1 tablet p.o. daily. 2. Ibuprofen 200 mg tablet p.o. q.6 hours. 3. Levothyroxine 224 mcg p.o. daily. 4. Metformin 1000 mg p.o. b.i.d. 5. Escitalopram 10 mg p.o. daily. 6. Folic acid 1 mg p.o. daily. 7. Guaifenesin and pseudoephedrine 600 mg/60 mg tablet 2 tablets p.o. b.i.d. 8. DuoNeb 3 mL nebs q.6 hours. 9. Magnesium oxide 400 mg p.o. daily. 10. Multivitamin with minerals 1 tab p.o. daily. 11. Nystatin apply to the affected area as needed. 12. Thiamine 100 mg p.o. daily. The patient did go home with hospice. Thus, the hospice physician may reevaluate this medication list and make necessary changes. HISTORY OF PRESENT ILLNESS AND HOSPITAL COURSE: This is a 62-year-old male that initially presented to the emergency department with several hour history of shortness of breath. The patient does have a history of thyroid cancer, status post resection with tracheostomy stoma. He had reported secretions that were including his airway. He is able to clear them initially with a Q-tip, but eventually became so profound that he was having difficulty keeping up with the secretions. The patient denied any fever or chills and he does have a history of failed swallow studies in the past. Due to the nature of respiratory distress, Dr. Martinez placed a trach through the patient's ostomy and the patient was put on a ventilator. Dr. Martinez did see and evaluate the patient. He did prescribe antifungal medication directed at oral thrush, which was present on admission. A surgery consultation was also placed to dilate the stoma. The patient was left on pressure support ventilation with low levels of sedation. The patient did come off of that ventilation with much difficulty. Dr. Machado did evaluate the patient and revise the tracheostomy. He placed a #8 Shiley low pressure cuff under direct visualization into the trachea. The patient reportedly tolerated the procedure well. Of note, the patient did take some time to come off of the ventilator, mostly secondary to alcohol withdrawal and agitation. He was given Haldol in several occasions due to help his agitation. On 02/08/2018, he was weaned to a trach collar. I took over this patient's care on 02/12/2018. By this point, he was transferred to the medical floor. He was satting fine on humidified air. The patient states he has the tracheostomy supplies at home. The patient is very adamant that he wanted to go home on the day that I did see him. The transition of care that I got the previous provider stated there was some concern regarding his ability to swallow. The patient had been n.p.o. since the start of his hospitalization due to being on a ventilator and due to concerns by speech therapy for him not being able to tolerate p.o. without aspiration. I had a very lengthy discussion lasting approximately an hour with patient in regards to his goals of care. We did discuss placing a PEG tube to help him get nutrition and to avoid complications from aspiration. The patient was very adamant that he wanted to continue to eat and cook as he normally does. I did explain the risks in detail associated with this course of action. The patient was very understanding of the risks and states that he has been doing this for many years and has not had any problems. After further discussion, I did talk to Mr. Cruz about hospice. Discussed with patient that if he qualified for hospice this could it be a good option for him in terms of getting a resource if he needs to be able to take care of himself and his who is paraplegic from a stroke several years ago. The patient is mostly concerned about being home with his as no one else is able to care for her. It was explained to the patient after he voiced his concerns about going home on hospice and not wanting to , that hospice did not mean that he is necessarily going to , which is to provide him with the necessary resources for his current state of health. The patient got very tearful during the discussion and endorsed feeling depressed. He states that he is not really talked to anyone about this previously and was not put on medication. We did discuss starting medications for the depression and he was agreeable to doing this. The medication was added on the day of discharge and will be presumably carried over through to discharge. After speaking with palliative care, they did go up and evaluate the patient, who again agreed that hospice was a good choice for him. He signed the paperwork with [facility]. He states that he will go home with hospice and they will help to take care of him so that he can help to take care of his . The patient's PCP is Dr. Dueñas who was also notified of this care plan and was in agreement with care plan as stated. Thus, the patient was to be discharged home with hospice care on 02/12/2018. DISPOSITION: Poor prognosis. DISCHARGE INSTRUCTIONS: 1. Location: Home with hospice through [facility]. 2. Activity: As tolerated. 3. Diet: Regular. 4. Followup: The patient is to follow up with Dr. Dueñas within 7 days of discharge from hospital. Additionally, the patient will be followed by the hospice physician upon arrival to his home. LUIS
== END 2018-02-12 14:06 | disposition home or self-care (01) | DRG 166 ==
LOC: ERS 08:01 → CCU 11:38 → IMCU/EMU 02-09 17:55 → T4-A 02-11 08:11
PROVIDERS: ADMIT Emergency Medicine; ATTEND Emergency Medicine
PROC: 0BH17EZ Insertion of Endotracheal Airway into Trachea, Via Natural or Artificial Opening (ICD-10-PCS; 2018-02-04)
PROC: 5A1945Z Respiratory Ventilation, 24-96 Consecutive Hours (ICD-10-PCS; 2018-02-04)
PROC: 0BW17FZ Revision of Tracheostomy Device in Trachea, Via Natural or Artificial Opening (ICD-10-PCS; principal; 2018-02-07)
DX: J95.03 Malfunction of tracheostomy stoma (principal); J96.01 Acute respiratory failure with hypoxia; J96.02 Acute respiratory failure with hypercapnia; B37.0 Candidal stomatitis; F10.239 Alcohol dependence with withdrawal, unspecified; G93.40 Encephalopathy, unspecified; J44.1 Chronic obstructive pulmonary disease with (acute) exacerbation; Z87.891 Personal history of nicotine dependence; F41.9 Anxiety disorder, unspecified; C76.0 Malignant neoplasm of head, face and neck; I10 Essential (primary) hypertension; Z85.850 Personal history of malignant neoplasm of thyroid; T17.908A Unspecified foreign body in respiratory tract, part unspecified causing other injury, initial encounter; K21.9 Gastro-esophageal reflux disease without esophagitis; E87.6 Hypokalemia; E83.42 Hypomagnesemia; E03.9 Hypothyroidism, unspecified; F12.90 Cannabis use, unspecified, uncomplicated
CPT/HCPCS: 36415; 71045; 71275; 80048; 80053; 80307; 82550; 82553; 82805; 83735; 83880; 84439; 84443; 84484; 85007; 85025; 85027; 85610; 85730; 93005; 94002; 94003; 94640; 94760; 96374; G8978-GP-CK; G8979-GP-CI; G8996-GN-CM; G8996-GN-CN; G8997-GN-CL; G8997-GN-CN; J0670; J1100; J1630; J1650; J2001; J2060; J2250; J2704; J3010; J3411; J3475; J3480; J7042; J7050; J7611; J7620; S0028

== ENCOUNTER 2018-07-22 07:35 | Emergency (ER) | payer MEDICARE ==
[2018-07-22] MEDS ORDERED: Lorazepam 2 MG/ML VIAL ONE (08:01)
== END 2018-07-22 11:03 | disposition home or self-care (01) ==
LOC: ERS 07:35
DX: R06.02 Shortness of breath (principal); J45.909 Unspecified asthma, uncomplicated; Z87.891 Personal history of nicotine dependence
CPT/HCPCS: 96374; J2060

== ENCOUNTER 2018-08-03 08:49 | Inpatient (IN) | payer MEDICARE ==
[2018-08-03 09:31] LABS: #Lymphocytes 0.6 thou/uL (1.20-3.40); #Monocytes 0.4 thou/uL (0.11-0.59); #Neutrophils 9.3 thou/uL (1.40-6.50); %Eosinophils 0.1 % (0.0-10.0); %Lymphocytes 5.7 % (21.0-51.0); %Monocytes 4.2 % (0.0-10.0); Hemoglobin 11.8 g/dL (14.0-18.0); Mean Corpuscular Hemoglobin 31.4 pg (27.0-31.0); Mean Corpuscular Volume 98.1 fL (78.0-98.0); Mean Platelet Volume 6.5 fL (7.4-10.4); Platelet Count 187 thou/uL (130-400); Red Blood Cell (RBC) Count 3.74 mill/uL (4.70-6.10); White Blood Cell (WBC) Count 10.3 thou/uL (4.8-10.8)
--- NOTE | 2018-08-03 09:40 | RAD ---
UPRIGHT PORTABLE CHEST ONE VIEW: HISTORY: Shortness of breath. COMPARISON: 02/12/2018 FINDINGS: Postop changes in the upper mediastinal region. Tracheostomy tube in place. Biapical pleural thicke ruby, worse on the left side. A catheter overlies the left supraclavicular region. Heart size is no rmal. No confluent pneumonia, overt edema, or pleural effusion. IMPRESSION: Stable appearing postoperative changes in the mediastinum and some chronic changes in the apices with tracheostomy tube in place. No confluent pneumonia, overt edema, or other significant new process. POS: [facility]
[2018-08-03 09:52] LABS: ALT (SGPT) 46 U/L (8-55); AST (SGOT) 23 U/L (5-34); Albumin 3.3 g/dL (3.4-4.8); Alkaline Phosphatase 169 U/L (40-150); Anion Gap 20 mmol/L (10-20); BUN (Urea Nitrogen) 20 mg/dL (8.4-25.7); Bilirubin, Total 0.9 mg/dL (0.2-1.2); Calc. Creatinine Clearance 0 mL/min (70-130); Calcium 8.6 mg/dL (7.8-10.44); Carbon Dioxide 18 mmol/L (23-31); Chloride 103 mmol/L (98-107); Estimated GFR-MDRD Greater than 90; Globulin 2.7 g/dL (2.4-3.5); Glucose 123 mg/dL (80-115); Potassium 3.2 mmol/L (3.5-5.1); Sodium 138 mmol/L (136-145)
[2018-08-03 10:28] LABS: Actual Bicarbonate (HCO3a) 14.9 mEq/L (22-28); Analyzer IN Cardio ER; Base Excess (BEa) -3.8 mEq/L (-2.0 to +3.0); Calcium, Ionized 1.07 mmol/L (1.12-1.30); Carboxyhemoglobin (COHb) 0.3 gm% (0.0-3.0); Hemoglobin (Hb) 12.6 g/dL (14.0-18.0); O2 Tension (PaO2) 126.2 mmHg (> 80.0); Potassium - ABG Lab 3.44 mmol/L (3.70-5.30)
[2018-08-03 10:31] LABS: CO2 Tension 15.5 mmHg (35.0-45.0)
[2018-08-03 10:32] LABS: ALV-art Gradient 4.155 (0-20); Puncture Site RRA
[2018-08-03 11:29] LABS: Troponin I Less than 0.010 ng/mL (< 0.028)
[2018-08-03 13:05] LABS: Lactic Acid 4.6 mmol/L (0.5-2.2)
[2018-08-03] MEDS ORDERED: Piperacillin/Tazobactam 4.5 GM VIAL ONE (13:25)
[2018-08-03] MEDS ORDERED: Vancomycin HCl 1 GM in Premix Bag 1 BAG IVPB SCH (13:30)
[2018-08-03] MEDS ORDERED: Lorazepam 2 MG/ML VIAL ONE (14:05)
--- NOTE | 2018-08-03 14:47 | PDOC.FPRHP ---
- History of Present Illness Chief Complaint: Can't breathe History of Present Illness: 63 yo M with PMH thyroid CA s/p resection/chemo/radiation and tracheostomy presents to ED for difficulty breathing. He is on hospice with [facility] and has chosen to revoke hospice. He says "I want to breath". ER doctor reported on arrival patient said he couldn't breath and that someone had stolen his trach. Trach was uncuffed so ED doc replaced it with cuffed so pressure support could be given. Additionally lactic 3.4->4.6 during time in ED. Patient unable to speak. Will nod head in response to questions. Difficulty breathing began this morning. Denies fever, chills, cough. Appears pt uses albuterol at home. He was hospitalized 01/2018 in which he had revision of tracheostomy 02/[address] Machado with #8 Shiley low pressure cuff placement. This hospitalization was prolonged d/t difficulty coming off ventilation mostly 2/2 alcohol withdrawal and agitation. 02/08/2018 weaned to trach collar. He was discharged home with hospice on 02/12/18. Had one ER visit in June for SOB in which he was given Ativan, improved and discharged home. Patient confirms DNR status. ED Course: 2L, ativan, levaquin, vanc, zosyn - Allergies/Adverse Reactions Allergies Allergy/AdvReac Type Severity Reaction Status Date / Time paclitaxel [From Taxol] Allergy Verified 08/03/18 16:37 - History History obtained per chart review, patient unable to provide history at this time. PMHx: thyroid cancer s/p chemo/radiation/resection w/ stoma, asthma, depression PSHx: thyroidectomy/trach 04/2014, b/l lymph node removal. FHx: none Social: Former tobacco use. Marijuana use. Hx alcohol abuse and withdrawal. - Review of Systems General: denies: fever/chills ENT: denies: nasal congestion Respiratory: reports: shortness of breath. denies: cough Cardiovascular: denies: chest pain, palpitation Gastrointestinal: denies: nausea, vomiting, diarrhea, abdominal pain Skin: denies: rashes Musculoskeletal: denies: pain - Vital signs BP: 102/77 HR: 94 RR: 18 Tmax: 98.6 Pox: 100% on RA Wt: 63 kg - Physical Exam -Constitutional: sitting up in bed, blood surrounding new trach area HEENT: normocephalic and atraumatic, grossly normal vision, grossly normal hearing Neck: other (trach in place, RT currently hooking up to bipap) Heart: RRR, normal S1/S2, other (1+ pitting edema BLE) Lungs: no wheezing, other (diffuse course breath sounds, coughing and discomfort with trach) Abdomen: soft, non-tender, bowel sounds present Musculoskeletal: normal structure, normal tone Neurological: no focal deficit Skin: no rash/lesions, good turgor Heme/Lymphatic: no unusual bruising or bleeding FMR H&P: Results - Labs Result Diagrams: 08/03/18 09:10 08/03/18 09:10 Lab results: WBC 10.3 thou/uL (4.8-10.8) 08/03/18 09:10 Hgb 11.8 g/dL (14.0-18.0) L 08/03/18 09:10 Hct 36.7 % (42.0-52.0) L 08/03/18 09:10 MCV 98.1 fL (78.0-98.0) H 08/03/18 09:10 Plt Count 187 thou/uL (130-400) 08/03/18 09:10 Neutrophils % 90.0 % (42.0-75.0) H 08/03/18 09:10 ABG pH 7.60 (7.35-7.45) H* 08/03/18 10:17 ABG pCO2 15.5 mmHg (35.0-45.0) L* 08/03/18 10:17 ABG pO2 126.2 mmHg (> 80.0) H 08/03/18 10:17 Sodium 138 mmol/L (136-145) 08/03/18 09:10 Potassium 3.2 mmol/L (3.5-5.1) L 08/03/18 09:10 Chloride 103 mmol/L (98-107) 08/03/18 09:10 Carbon Dioxide 18 mmol/L (23-31) L 08/03/18 09:10 BUN 20 mg/dL (8.4-25.7) 08/03/18 09:10 Creatinine 0.78 mg/dL (0.7-1.3) 08/03/18 09:10 Glucose 123 mg/dL (80-115) H 08/03/18 09:10 Lactic Acid 4.6 mmol/L (0.5-2.2) H* 08/03/18 12:36 Calcium 8.6 mg/dL (7.8-10.44) 08/03/18 09:10 Total Bilirubin 0.9 mg/dL (0.2-1.2) 08/03/18 09:10 AST 23 U/L (5-34) 08/03/18 09:10 ALT 46 U/L (8-55) 08/03/18 09:10 Alkaline Phosphatase 169 U/L (40-150) H 08/03/18 09:10 Serum Total Protein 6.0 g/dL (5.8-8.1) 08/03/18 09:10 Albumin 3.3 g/dL (3.4-4.8) L 08/03/18 09:10 FMR H&P: A/P - Problem List (1) Respiratory alkalosis Current Visit: Yes Status: Acute Code(s): E87.3 - ALKALOSIS (2) H/O malignant neoplasm of thyroid Current Visit: No Status: Chronic Code(s): Z85.850 - PERSONAL HISTORY OF MALIGNANT NEOPLASM OF THYROID - Plan Primary respiratory alkalosis likely 2/2 hyperventilation - ABG pH 7.6/CO2 15.5/bicarb 14.9. Was never hypoxic. Placed on bipap for very short time in ED but now satting well on RA. - WBC, procal neg, afebrile. Blood cx pending - CXR with no acute changes - will consult pulm, Dr. Garcia - given fernando, miriam, lanre in ED. Will not continue abx at this time - this event and patient's perceived air hunger could be due to anxiety. Given ativan in ED. Will have available prn. Elevated lactic acid - 3.4->4.6. Will recheck for downtrend Hypothyroid - 2/2 thyroid cancer s/p resection and tracheostomy Hx of HTN Unsure of current medication list on hospice. Called [facility] and patient's hospice nurse is coming to hospital to provide records as well as for pt to sign revocation form. Will med rec appropriately when receive records. Diet: NPO Ppx: Lovenox PCP: JERMAINE Dueñas Dispo: admit to [facility] Case discussed with Dr. Hayes FMR H&P: Upper Level - Pertinent history Pt is a 63 y/o M presenting to ED with SOB. He has revoked hospice to come to ED for breathing difficulty and reportedly "just wants to breathe". Per chart he received a thyroidectomy for thyroid cancer and has been using a trach since then. In ED, pt given IVF and antibiotics for elevated lactic acid and possible infection. Trach also replaced in ED and placed on positive mechanical ventilation. - Pertinent findings Pt A&O x3. Trach present and on mechanical ventiilation. Some blood surrounding trach tube. - Plan Date/Time: 08/03/18 1361 I, Abhay Plascencia, have evaluated this patient and agree with findings/plan as outlined by sports broadcasting internship resident. Pertinent changes/additions are listed here. Pt is a 63 y/o M on hospice for thyroid cancer on permanent trach admitted after revoking hospice because or air hunger. We will consult Pulm as ED has replaced Tracheostomy for trach management and focus most of our efforts on relieving his air hunger and getting him back home with home hospice. We will discontinue abx that were started for presumed sepsis as his Lactate was elevated, but this is likely 2/2 respiratory issues. Will follow this lab. For his respiratory alkalosis likely caused by hyperventilation and agitation/ anxiety we will repeat ABG and continue positive pressure ventilation as needed. Will also contact hospice company and obtain medications. Addendum - Attending - Attending Attestation Date/Time: 08/03/18 1610 I personally evaluated the patient and discussed the management with Dr. Chino /Temo. I agree with the History, Examination, Assessment and Plan documented above with any addition or exceptions noted below. Patient with history of tracheostomy status here with complaint of shortness of breath. ABG obtained by the ER actually was very reassuring and showed more than adequate oxygenation and hyperventilation. Patient was seen in ER a short time ago for similar complaint that resolved with ativan. Patient currently on hospice services. His labs are overall normal and stable from previous. He does have elevated lactate, but is definitely perfusing well and has no hypoxia. Possibly could be related to his malignancy. Patient admitted to IMCU by the ERMD "for need for positive pressure ventilation through his trach", but patient is currently satting well and in no respiratory distress on t-collar. ABG again shows adequate oxygenation and ventilation. CXR clear, no evidence of acute pulmonary change. Symptoms improved with ativan. Control symptoms, will call his hospice nurse for updates and monitor. Anticipate short duration hospitalization.
[2018-08-03] MEDS ORDERED: Ondansetron PF 4 MG/2 ML Vial IVP PRN ×2 (15:23→15:47)
[2018-08-03] MEDS ORDERED: Acetaminophen 325 MG TAB PO PRN ×2 (15:23→15:47)
[2018-08-03] MEDS ORDERED: Ondansetron ODT 4 MG TAB SL PRN (15:23)
[2018-08-03] MEDS ORDERED: Ondansetron ODT 4 MG TAB PO PRN (15:47)
[2018-08-03 16:29] LABS: Lactic Acid 3.5 mmol/L (0.5-2.2)
[2018-08-03 16:57] VITALS: BMI 21.6
[2018-08-03] MEDS: Sodium Chloride 0.9% 1,000 ML IV SCH (17:05)
[2018-08-03] MEDS ORDERED: PROVENTIL INHALER 6.7 G (200 INHALATIONS) INH PRN (17:17)
[2018-08-03] MEDS ORDERED: Potassium Chloride 40 MEQ in Sodium Chloride 0.9% 250 ML 250 ML IVPB SCH (18:15)
[2018-08-03] MEDS: Lactated Ringer's 1,000 ML IV SCH (19:00)
[2018-08-03 20:03] LABS: Actual Bicarbonate (HCO3a) 18.9 mEq/L (22-28); Base Excess (BEa) -2.3 mEq/L (-2.0 to +3.0); Calcium, Ionized 1.05 mmol/L (1.12-1.30); Carboxyhemoglobin (COHb) 0.3 gm% (0.0-3.0); Hemoglobin (Hb) 10.2 g/dL (14.0-18.0); O2 Tension (PaO2) 162.8 mmHg (> 80.0); Potassium - ABG Lab 3.33 mmol/L (3.70-5.30)
[2018-08-03 20:06] LABS: CO2 Tension 22.4 mmHg (35.0-45.0); Puncture Site RRAD; pH, Arterial 7.55 (7.35-7.45)
[2018-08-03] MEDS: guaiFENesin ER 600 MG TAB PO SCH (20:22)
[2018-08-03] MEDS: Gabapentin 300 MG CAP PO SCH (20:22)
[2018-08-03] MEDS: Senokot S 8.6-50 MG TAB PO SCH (20:23)
[2018-08-04] MEDS: Sodium Chloride 0.9% 1,000 ML IV SCH (00:40)
[2018-08-04] MEDS: Lactated Ringer's 1,000 ML IV SCH ×3 (04:38→20:10)
[2018-08-04] MEDS: Levothyroxine Sodium 112 MCG TAB PO SCH (05:12)
[2018-08-04 05:21] LABS: #Lymphocytes 0.3 thou/uL (1.20-3.40); #Monocytes 0.4 thou/uL (0.11-0.59); #Neutrophils 5.9 thou/uL (1.40-6.50); %Basophils 0.1 % (0.0-1.0); %Eosinophils 0.6 % (0.0-10.0); %Lymphocytes 4.3 % (21.0-51.0); %Monocytes 5.4 % (0.0-10.0); %Neutrophils 89.6 % (42.0-75.0); Hemoglobin 9.8 g/dL (14.0-18.0); Mean Corpuscular Hemoglobin 32.5 pg (27.0-31.0); Mean Corpuscular Volume 98.6 fL (78.0-98.0); Mean Platelet Volume 6.5 fL (7.4-10.4); Platelet Count 144 thou/uL (130-400); RBC Distribution Width 14.2 % (11.5-14.5); Red Blood Cell (RBC) Count 3.02 mill/uL (4.70-6.10); White Blood Cell (WBC) Count 6.6 thou/uL (4.8-10.8)
[2018-08-04 05:42] LABS: Anion Gap 12 mmol/L (10-20); BUN (Urea Nitrogen) 13 mg/dL (8.4-25.7); Calc. Creatinine Clearance 91 mL/min (70-130); Carbon Dioxide 21 mmol/L (23-31); Chloride 109 mmol/L (98-107); Estimated GFR-MDRD Greater than 90; Glucose 101 mg/dL (80-115); Potassium 3.6 mmol/L (3.5-5.1); Sodium 138 mmol/L (136-145)
--- NOTE | 2018-08-04 06:23 | PDOC.FM ---
- Subjective Subjective: Mr. Cruz is sitting up in bed. Unable to talk much d/t trach. Did express that he needs to go to the bathroom. Denies pain. - Objective MAR Reviewed: Yes Vital Signs & Weight: Vital Signs (12 hours) Temp Pulse Ox 08/04/18 03:50 98.6 F 08/03/18 23:45 97.9 F 08/03/18 20:00 99 08/03/18 19:36 97.9 F Weight Weight 60.691 kg Most Recent Monitor Data Heart Rate from ECG 83 NIBP 119/70 NIBP BP-Mean 86 Respiration from ECG 13 SpO2 100 Result Diagrams: 08/04/18 04:55 08/04/18 04:55 Phys Exam - Physical Examination Constitutional: NAD Respiratory: wheezing present (expiratory) Cardiovascular: RRR, no significant murmur Gastrointestinal: soft, non-tender, positive bowel sounds Musculoskeletal: no edema, pulses present Neurological: non-focal Dx/Plan (1) Respiratory alkalosis Code(s): E87.3 - ALKALOSIS Status: Acute (2) H/O malignant neoplasm of thyroid Code(s): Z85.850 - PERSONAL HISTORY OF MALIGNANT NEOPLASM OF THYROID Status: Chronic - Plan Plan: Primary respiratory alkalosis likely 2/2 hyperventilation - Initial ABG pH 7.6/CO2 15.5/bicarb 14.9. Was never hypoxic. Placed on bipap for very short time in ED but now satting well on RA. - WBC, procal neg, afebrile. Prelim bx NGTD. - CXR with no acute changes - appreciate pulm recommendations - given vanc, zosyn, levaquin in ED. Will not continue abx at this time - Anxiety likely large component of this event. Ativan has helped the most. Elevated lactic acid, improving - 3.4->4.6-> 3.5 Hypothyroid - 2/2 thyroid cancer s/p resection and tracheostomy Hx of HTN Diet: NPO Ppx: Lovenox PCP: JERMAINE Dueñas Dispo: Patient officially revoked hospice care yesterday. This was second time to revoke from [facility] hospice. Patient expressed understanding to hospice nurse yesterday that he possibly could not be accepted back on hospice with them. Per hospice nurse, patient at baseline is A&Ox4, performs all ADLs and trach care for himself in addition to caring for his disabled . Will appreciate trach recs from pulmonology. Otherwise patient could be stable for discharge. CM and palliative care consulted. Addendum - Attending - Attending Attestation Date/Time: 08/04/18 7209 I personally evaluated the patient and discussed the management with Dr. Chino. I agree with the History, Examination, Assessment and Plan documented above with any addition or exceptions noted below. Mr Cruz is stable and has no complaints, wants to go home. He revoked hospice yesterday. His ABG on repeat continued to show adequate oxygenation and ventilation and his workup for respiratory issues and other issues has been negative. Suspect anxiety as his cause for presentation. Discuss with Pulm but patient is stable for discharge at the time of my evaluation.
[2018-08-04] MEDS: Dexamethasone 4 MG TAB PO SCH (08:31)
[2018-08-04] MEDS: Aspirin 325 MG TAB PO SCH (08:31)
[2018-08-04] MEDS: Gabapentin 300 MG CAP PO SCH ×3 (08:31→22:43)
[2018-08-04] MEDS: guaiFENesin ER 600 MG TAB PO SCH ×2 (08:31→22:43)
[2018-08-04] MEDS: Senokot S 8.6-50 MG TAB PO SCH ×2 (08:31→22:43)
[2018-08-04] MEDS: Tamsulosin HCl 0.4 MG CAP PO SCH (08:32)
[2018-08-04] MEDS: Lorazepam 2 MG/ML VIAL SLOW IVP PRN (08:49)
[2018-08-04] MEDS: Enoxaparin Sodium 40 MG/0.4 ML SYRINGE SC SCH (09:01)
[2018-08-04] MEDS: methylPREDNISolone Sod Succ 40 MG VIAL IVP SCH (20:06)
--- NOTE | 2018-08-04 21:38 | CON ---
DATE OF CONSULTATION: 08/04/2018 HISTORY OF PRESENT ILLNESS: Ángel Cruz is a 63-year-old male, well known to me. He has history of heavy alcohol and tobacco use. He tells me his trach was changed a week ago. He presented to the emergency room with shortness of breath. He was changed to a cuffed tracheostomy tube. He says he is feeling better and wants to go home. He denies smoking and drinking. Last admission, he was admitted after getting drunk and pulling his trach out. We were unable to replace his tracheostomy tube so required a trip to the OR. PAST MEDICAL HISTORY: Remarkable for: 1. Anaplastic thyroid carcinoma, status post radical resection and adjuvant therapy. 2. History of COPD and asthma. 3. History of depression. 4. History of 80+ pack-year history of smoking. 5. History of PEG. 6. History of plastic surgery and skin flap for his surgery. 7. History of hypothyroidism, on replacement. 8. History of diabetes. He reports intolerance to Taxol. 9. History of coronary artery disease. SOCIAL HISTORY: He smokes marijuana. He is not smoking cigarettes. He does not drink. FAMILY HISTORY: Negative for lung disease in early age. REVIEW OF SYSTEMS: Ten point review of systems completed, otherwise negative. PHYSICAL EXAMINATION: GENERAL: He is in no distress. Respiratory rates in the teens. He has a cuffed tracheostomy tube in place with green sputum around the orifice. VITAL SIGNS: Afebrile, blood pressure 144/83, heart rate 78, respiratory rate is 18. HEENT: pupils react. LUNGS: Remarkable for rhonchi bilaterally. NECK: Postsurgical neck changes are unchanged from last visit. HEART: Regular rhythm. ABDOMEN: Soft and nontender. EXTREMITIES: Without edema. LABORATORY DATA: White count 6.6, hemoglobin 9.8, platelets 144. Sodium 138, potassium 3.6, chloride 109, bicarb 21, BUN 13, creatinine 0.73. Chest x-ray shows no alveolar infiltrates or mass, lesions. IMPRESSION: 1. Purulent bronchitis. 2. Chronic obstructive pulmonary disease exacerbation/reactive airways. 3. Permanent tracheostomy, now with a cuffed tracheostomy tube when he is better. A cuffless tracheostomy tube will need to be replaced. 4. History of noncompliance with tobacco and alcohol abstinence. We will be happy to follow the other physicians caring for him. His medications have been reviewed. He would benefit from nebulized treatments every 4 hours. In my opinion, he also would benefit from steroids at this time. These will be added. TIME SPENT: This is a 50-minute consult, with greater than 50% of the time spent on the unit coordinating care. Job ID: [id number] MTDD
[2018-08-05] MEDS: methylPREDNISolone Sod Succ 40 MG VIAL IVP SCH ×4 (00:42→18:14)
[2018-08-05] MEDS: Lactated Ringer's 1,000 ML IV SCH ×3 (05:49→20:34)
[2018-08-05] MEDS: Levothyroxine Sodium 112 MCG TAB PO SCH (05:50)
[2018-08-05 05:55] LABS: Anion Gap 20 mmol/L (10-20); BUN (Urea Nitrogen) 8 mg/dL (8.4-25.7); Calc. Creatinine Clearance 166 mL/min (70-130); Calcium 6.9 mg/dL (7.8-10.44); Carbon Dioxide 11 mmol/L (23-31); Chloride 106 mmol/L (98-107); Estimated GFR-MDRD Greater than 90; Glucose 93 mg/dL (80-115); Sodium 133 mmol/L (136-145)
--- NOTE | 2018-08-05 06:11 | PDOC.FM ---
- Subjective Subjective: Mr. Cruz denies difficulty breathing. Says that he wants to go home and would like to have hospice services when he returns home. Failed bedside swallow and pending speech eval. - Objective Vital Signs & Weight: Vital Signs (12 hours) Temp Pulse Resp Pulse Ox 08/05/18 04:00 97.1 F L 08/05/18 02:25 56 L 13 100 08/05/18 00:47 97.1 F L 08/04/18 22:34 81 16 92 L 08/04/18 20:00 100 08/04/18 19:00 98.7 F 08/04/18 18:35 84 15 96 Weight Weight 60.691 kg Most Recent Monitor Data Heart Rate from ECG 59 NIBP 118/70 NIBP BP-Mean 86 Respiration from ECG 20 SpO2 100 I&O: 08/03/18 08/04/18 08/05/18 06:59 06:59 06:59 Intake Total 1380 Output Total 670 Balance 710 Result Diagrams: 08/05/18 05:00 08/05/18 05:00 Phys Exam - Physical Examination Constitutional: NAD (cachectic) rhonchi, no wheezing Cardiovascular: RRR, no significant murmur Gastrointestinal: soft, non-tender, positive bowel sounds Musculoskeletal: no edema Neurological: non-focal Psychiatric: normal affect Skin: normal turgor Dx/Plan (1) Respiratory alkalosis Code(s): E87.3 - ALKALOSIS Status: Acute (2) H/O malignant neoplasm of thyroid Code(s): Z85.850 - PERSONAL HISTORY OF MALIGNANT NEOPLASM OF THYROID Status: Chronic - Plan Plan: Primary respiratory alkalosis likely 2/2 hyperventilation - Initial ABG pH 7.6/CO2 15.5/bicarb 14.9. Was never hypoxic. Trach replaced and placed on bipap for very short time in ED but now satting well on RA. - WBC, procal neg, afebrile. Prelim bx NGTD. - CXR with no acute changes - appreciate pulm recommendations, started steroids, continue duonebs - given vanc, zosyn, levaquin in ED. Will not continue abx at this time - Anxiety likely large component of this event. Ativan has helped the most. Elevated lactic acid, improving - 3.4->4.6-> 3.5 Hypocalcemia - 6.9 this am, will replace Hypothyroid - 2/2 thyroid cancer s/p resection and tracheostomy Hx of HTN Diet: NPO Ppx: Lovenox PCP: JERMAINE Dueñas Dispo: CM working on case-[facility] would be willing to again provide services for pt despite revocation. Patient desires to return home on hospice. Pending speech eval. Await pulm recommendations today. Addendum - Attending - Attending Attestation Date/Time: 08/05/18 9611 I personally evaluated the patient and discussed the management with Dr. Chino. I agree with the History, Examination, Assessment and Plan documented above with any addition or exceptions noted below. Patient doing well today and denies complaints. Requests to go home. He would like to resume hospice services. Bloodwork stable, low Co2 on BMP 2/2 his respiratory alkalosis compensation, no suspicion for metabolic acidosis. Discuss with Pulm but possible d/c either today or tomorrow pending their recs.
[2018-08-05 06:26] LABS: #Basophils 0.1 thou/uL (0.0-0.2); #Lymphocytes 0.1 thou/uL (1.20-3.40); #Monocytes 0.1 thou/uL (0.11-0.59); #Neutrophils 3.9 thou/uL (1.40-6.50); %Basophils 1.5 % (0.0-1.0); %Eosinophils 0.1 % (0.0-10.0); %Lymphocytes 2.9 % (21.0-51.0); %Monocytes 1.7 % (0.0-10.0); %Neutrophils 93.9 % (42.0-75.0); Hemoglobin 8.1 g/dL (14.0-18.0); Mean Corpuscular HGB CONC 34.3 g/dL (32.0-36.0); Mean Corpuscular Hemoglobin 33.4 pg (27.0-31.0); Mean Corpuscular Volume 97.5 fL (78.0-98.0); Mean Platelet Volume 6.2 fL (7.4-10.4); Platelet Count 106 thou/uL (130-400); Platelet Morphology Comment Appears Decreased; RBC Distribution Width 13.6 % (11.5-14.5); Red Blood Cell (RBC) Count 2.42 mill/uL (4.70-6.10); White Blood Cell (WBC) Count 4.1 thou/uL (4.8-10.8)
[2018-08-05] MEDS: Calcium Carbonate 600 MG TAB PO SCH ×2 (08:43→20:34)
[2018-08-05] MEDS: Aspirin 325 MG TAB PO SCH (08:43)
[2018-08-05] MEDS: guaiFENesin ER 600 MG TAB PO SCH ×2 (08:44→20:34)
[2018-08-05] MEDS: Enoxaparin Sodium 40 MG/0.4 ML SYRINGE SC SCH (08:44)
[2018-08-05] MEDS: Gabapentin 300 MG CAP PO SCH ×3 (08:44→20:34)
[2018-08-05] MEDS: Dexamethasone 4 MG TAB PO SCH (08:44)
[2018-08-05] MEDS: Tamsulosin HCl 0.4 MG CAP PO SCH (08:47)
[2018-08-05] MEDS: Senokot S 8.6-50 MG TAB PO SCH ×2 (08:47→20:34)
[2018-08-05] MEDS: Lorazepam 2 MG/ML VIAL SLOW IVP PRN (15:13)
--- NOTE | 2018-08-05 16:36 | PRG ---
DATE OF SERVICE: 08/05/2018 SUBJECTIVE: Ángel Cruz wants to go home, but he always wants to go home. OBJECTIVE: VITAL SIGNS: He is afebrile. Heart rate 72, respiratory rate 16, and oximetry is 99%. HEENT: His secretions appear to be handled with coughing. LUNGS: Clear. HEART: Regular rhythm. ABDOMEN: Soft. IMPRESSION: Status post resection of anaplastic thyroid cancer. He has cuffed tracheostomy in. He will need a cuffless tracheostomy. Change that prior to discharge. Other problems include anemia, thrombocytopenia, most likely secondary to chronic disease, hyponatremia, and intravascular volume depletion on presentation. His blood cultures remain negative. We will follow as long as he is in the hospital. Job ID: [id number]
[2018-08-06] MEDS: methylPREDNISolone Sod Succ 40 MG VIAL IVP SCH ×2 (00:10→05:58)
[2018-08-06] MEDS: Levothyroxine Sodium 112 MCG TAB PO SCH (05:58)
--- NOTE | 2018-08-06 06:27 | PDOC.FM ---
- Subjective Subjective: Mr. Cruz has no complaints and says he wants to go home or otherwise he will leave on his own. Trach replaced this am by Dr. Garcia. - Objective Vital Signs & Weight: Vital Signs (12 hours) Temp Pulse Resp Pulse Ox 08/06/18 03:44 97.2 F L 08/06/18 03:00 69 14 96 08/05/18 23:52 97.4 F L 08/05/18 22:21 85 19 97 08/05/18 20:00 97.4 F L 98 08/05/18 18:31 103 H 27 H 98 Weight Weight 60.691 kg Most Recent Monitor Data Heart Rate from ECG 84 NIBP 139/81 NIBP BP-Mean 100 Respiration from ECG 17 SpO2 95 I&O: 08/04/18 08/05/18 08/06/18 06:59 06:59 06:59 Intake Total 1380 1350 940 Output Total 063 108 4784 Balance 710 370 -260 Result Diagrams: 08/05/18 05:00 08/05/18 05:00 Phys Exam - Physical Examination Constitutional: NAD Respiratory: clear to auscultation bilateral Cardiovascular: RRR, no significant murmur Gastrointestinal: soft, non-tender, positive bowel sounds Musculoskeletal: no edema Neurological: non-focal Psychiatric: normal affect Dx/Plan (1) Respiratory alkalosis Code(s): E87.3 - ALKALOSIS Status: Acute (2) H/O malignant neoplasm of thyroid Code(s): Z85.850 - PERSONAL HISTORY OF MALIGNANT NEOPLASM OF THYROID Status: Chronic - Plan Plan: Primary respiratory alkalosis likely 2/2 hyperventilation - Initial ABG pH 7.6/CO2 15.5/bicarb 14.9. Was never hypoxic. Trach replaced and placed on bipap for very short time in ED but now satting well on RA. - WBC, procal neg, afebrile. Prelim bcx NGTD. - CXR with no acute changes - appreciate pulm recommendations, continue duonebs, steroids - Anxiety likely large component of this event. Ativan has helped the most. Elevated lactic acid, improving - 3.4->4.6-> 3.5 Hypocalcemia - 6.9 this am, will replace Hypothyroid - 2/2 thyroid cancer s/p resection and tracheostomy Hx of HTN Diet: NPO Ppx: Lovenox PCP: JERMAINE Dueñas Dispo: Palliative care assessing pt this morning. CM working on case- paperwork sent to [facility] hospice. Likely discharge home on hospice today. Trach replaced. Addendum - Attending - Attending Attestation Date/Time: 08/06/18 9712 I personally evaluated the patient and discussed the management with Dr. Chino I agree with the History, Examination, Assessment and Plan documented above with any addition or exceptions noted below.Patient is requesting to leave this am he is stable off collar has trach tube inserted this am. Additional information of potential family discord with at home APS notified for further evaluation will notify [facility] of patient planned discharge today. Patient desire to be placed back on Hospice services at this time.
--- NOTE | 2018-08-06 10:19 | PRG ---
DATE OF SERVICE: 08/06/2018 SUBJECTIVE: Ángel Cruz wants to go home. OBJECTIVE: VITAL SIGNS: Stable. He is afebrile. Heart rate 85, respiratory rate 16, blood pressure 120/68, oximetry is 95% on room air. Secretions are improving. LUNGS: Clear. HEART: Regular rhythm. ABDOMEN: Soft and nontender. EXTREMITIES: Without edema. LABORATORY DATA: White count 4.1, hemoglobin 8.1, and platelets 106,000. Sodium 133, potassium 4, chloride 106 bicarb 11, BUN 8, and creatinine 0.4. Intake and outputs negative 260. IMPRESSION: 1. Acute on chronic respiratory failure with hypoxemia, improved. 2. Status post tracheostomy for anaplastic thyroid carcinoma. His cuffed tracheostomy tube was removed and I placed a 6 cuffless Shiley without difficulty. A smooth inner cannula was inserted. 3. Borderline hyponatremia. 4. Anemia, likely a mixture of slow blood loss and chronic disease. If he is discharged to home, he needs to be followed closely as an outpatient. He says he is not smoking or drinking. I congratulated him on his abstinence. He probably should be tapered off his steroids over the next couple of weeks. He should continue with nebulizer treatments at least 4 times a day. He is currently on Decadron, which has no mineralocorticoid activity, which may in part explain his hyponatremia. I would recommend switching him to prednisone. Job ID: [id number]
[2018-08-06] MEDS: Lactated Ringer's 1,000 ML IV SCH (10:26)
[2018-08-06] MEDS: Aspirin 325 MG TAB PO SCH (10:27)
[2018-08-06] MEDS: Senokot S 8.6-50 MG TAB PO SCH (10:28)
[2018-08-06] MEDS: Gabapentin 300 MG CAP PO SCH (10:28)
[2018-08-06] MEDS: Dexamethasone 4 MG TAB PO SCH (10:28)
[2018-08-06] MEDS: guaiFENesin ER 600 MG TAB PO SCH (10:28)
[2018-08-06] MEDS: Tamsulosin HCl 0.4 MG CAP PO SCH (10:28)
[2018-08-06] MEDS: Calcium Carbonate 600 MG TAB PO SCH (10:28)
[2018-08-06] MEDS: Enoxaparin Sodium 40 MG/0.4 ML SYRINGE SC SCH (10:29)
[2018-08-06 11:42] VITALS: TEMP 97.7
[2018-08-07] MEDS ORDERED: predniSONE 20 MG TAB PO SCH (08:00)
--- NOTE | 2018-08-07 08:34 | DIS ---
DATE OF ADMISSION: 08/03/2018 DATE OF DISCHARGE: 08/06/2018 RESIDENT: Barbara Chino DO ADMITTING ATTENDING: Marty Davila MD DISCHARGE ATTENDING: Dr. Magana. CONSULTS: Pulmonology, Nikolay Garcia MD PROCEDURES: 1. 08/03/2018, chest x-ray showed stable appearing postoperative changes in the mediastinum and some chronic changes in the apices with tracheostomy tube in place. No confluent pneumonia or overt edema or other significant new process. 2. 08/03/2018, the patient had home trach replaced with a cuffed trach. 3. 08/06/2018, the patient had cuffed trach replaced with a 6 cuffless Shiley trach. PRIMARY DIAGNOSES: 1. Primary respiratory alkalosis, likely secondary to hyperventilation. 2. Elevated lactic acid. 3. Hypocalcemia. 4. Hypothyroidism. 5. History of hypertension. 6. Chronic anemia. DISCHARGE MEDICATIONS: All home hospice medications were resumed, which include the followin. Acetaminophen 1000 mg p.o. q.6 hours p.r.n. 2. Quetiapine 50 mg p.o. at bedtime. 3. Sennosides-docusate one tablet p.o. b.i.d. 4. Scopolamine 1.5 mg two patch topical q.3 days. 5. Albuterol 2 puffs inhaled q.4 hours p.r.n. 6. Morphine 5 to 10 mg p.o. q.2 hours p.r.n. 7. Levothyroxine 112 mcg two tabs p.o. daily. 8. DuoNeb 3 mL neb, q.4 hours p.r.n. 9. Hyoscyamine sulfate 1 to 2 tabs sublingual q.6 hours p.r.n. 10. Gabapentin 600 mg p.o. t.i.d. 11. Fentanyl 100 mcg transdermal q.3 days. 12. Tamsulosin 0.4 mg p.o. daily. 13. Lorazepam 1 to 2 tablets p.o. q.4 hours p.r.n. 14. Aspirin 325 mg p.o. daily. NEW MEDICATIONS: 1. DuoNeb q.6 hours scheduled. 2. Prednisone taper. Prednisone 20 mg p.o. daily for 5 days, prednisone 10 mg daily for the following 5 days, prednisone 5 mg daily for the final 5 days. DISCONTINUED MEDICATIONS: Dexamethasone. HISTORY OF PRESENT ILLNESS: A 63-year-old male presented to the ED for difficulty breathing. He was on hospice with [facility] and chose to revoke the hospice by coming to the ER. Per the [employer], he did not contact them in this event and instead decided to call 911 to get help whenever he was feeling short of breath. Apparently on arrival to the ER, he would just say that his goal was that I want to breathe and that someone had stolen his trach. The patient was saturating well on room air this entire time and no hypoxia was ever recorded. Unfortunately, the patient's home uncuffed trach was replaced in the ER with a cuffed trach, so that "pressure support could be given." BiPAP machine was started while in the ED. However, this was for a very short time and the patient never required afterwards. His ABG was consistent with hypoventilation. It seemed that this event was secondary to anxiety. This has happened in the past and even on previous ER visits, it has resolved with Ativan. According to [facility], the patient has Ativan available to him. However, he will not take it as prescribed and instead will just call 911. The patient did remain DNR throughout hospitalization. Workup was negative for infection with negative white count and procalcitonin. Pulmonology was consulted and Dr. Garcia saw him. It appeared the patient could have mild bronchitis in which he was given prednisone and scheduled DuoNeb for with improvement. His lactic acid trended down. Otherwise, the patient was stable throughout entire hospitalization. Prior to discharge, his trach was replaced as above. The patient was discharged back home on Home [facility] with [facility] as requested. 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 Palliative Care did assess the patient as well this hospitalization. Job ID: [id number]
== END 2018-08-06 15:30 | disposition hospice, home (50) | DRG 641 ==
LOC: ERS 08:49 → ERHOLD 14:00 → IMCU/EMU 15:11 → OBSVTOIN 15:55
PROVIDERS: ADMIT Student in an Organized Health Care Education/Training Program; ATTEND Student in an Organized Health Care Education/Training Program
PROC: 0B21XFZ Change Tracheostomy Device in Trachea, External Approach (ICD-10-PCS; principal; 2018-08-06)
DX: E87.3 Alkalosis (principal); Z93.0 Tracheostomy status; D69.59 Other secondary thrombocytopenia; E83.51 Hypocalcemia; R06.4 Hyperventilation; E87.1 Hypo-osmolality and hyponatremia; F41.9 Anxiety disorder, unspecified; D63.8 Anemia in other chronic diseases classified elsewhere; E89.0 Postprocedural hypothyroidism; E86.9 Volume depletion, unspecified; J45.909 Unspecified asthma, uncomplicated; I10 Essential (primary) hypertension; R79.89 Other specified abnormal findings of blood chemistry; Z85.850 Personal history of malignant neoplasm of thyroid; Z87.891 Personal history of nicotine dependence; Z92.21 Personal history of antineoplastic chemotherapy; Z92.3 Personal history of irradiation; Z88.8 Allergy status to other drugs, medicaments and biological substances
CPT/HCPCS: 36415; 36416; 71045; 80048; 80053; 82805; 83605; 84145; 84484; 85025; 87040; 93005; 94640; 94660; J1650; J1956; J2060; J2543; J2920; J3370; J3480; J7050; J7620; J8540

== ENCOUNTER 2018-08-10 13:04 | Inpatient (IN) | payer MEDICARE ==
--- NOTE | 2018-08-10 15:17 | CT ---
CT BRAIN WITHOUT CONTRAST: HISTORY: Altered mental status FINDINGS: No evidence of acute infarct, hemorrhage, midline shift or abnormal extra-axial fluid collections is seen. The ventricular size is appropriate and the basilar cisterns are patent. The bony calvarium is intact. The visualized paranasal sinuses and mastoid air cells are well aerated. Changes of mild c hronic small vessel ischemic disease mild cortical atrophy is stable since 09/05/2017 IMPRESSION: No CT evidence of acute intracranial process.
[2018-08-10 15:32] LABS: #Lymphocytes 0.2 thou/uL (1.20-3.40); #Monocytes 0.2 thou/uL (0.11-0.59); #Neutrophils 5.6 thou/uL (1.40-6.50); %Eosinophils 0.2 % (0.0-10.0); %Lymphocytes 3.6 % (21.0-51.0); %Monocytes 2.5 % (0.0-10.0); %Neutrophils 93.7 % (42.0-75.0); Hemoglobin 9.9 g/dL (14.0-18.0); Mean Corpuscular HGB CONC 33.2 g/dL (32.0-36.0); Mean Corpuscular Hemoglobin 32.5 pg (27.0-31.0); Mean Corpuscular Volume 97.8 fL (78.0-98.0); Mean Platelet Volume 6.5 fL (7.4-10.4); Platelet Count 148 thou/uL (130-400); RBC Distribution Width 13.7 % (11.5-14.5); Red Blood Cell (RBC) Count 3.05 mill/uL (4.70-6.10)
--- NOTE | 2018-08-10 15:34 | PDOC.FPRHP ---
- History of Present Illness Chief Complaint: Acute delirium History of Present Illness: This is a 63 yo male with PMH thyroid cancer s/p resection/chemo/radiation and tracheostomy presenting to the ED with confusion. He was recently discharged from the hospital to hospice. He states today he is feeling tired. Denies any pain. Discussion with [facility] reports pt was driving around alone looking for his . PD was calld and was looking for him and hospice company was in contact with him telling him to go to ED. He reportedly did not know where he was. His has been admitted to hospital since Monday and pt has been at home alone since. Letter dated 08/09/2018 from hospice physician, Dr. Disla states patient does not have capacity to make decisions for himself any more. Contacted [facility] and they will fax his out of hospital DNR to the ED. Patient is deemed unsafe to return home alone at this time. Due to mental status he was unsafe to go to [facility] home. ED physician requested admission for acute delirium. ED Course: 1L NS bolus - Allergies/Adverse Reactions Allergies Allergy/AdvReac Type Severity Reaction Status Date / Time paclitaxel [From Taxol] Allergy Verified 08/11/18 03:59 - Home Medications Medication Instructions Recorded Confirmed Type Acetaminophen [Tylenol Extra 1,000 mg PO Q6HR PRN 08/03/18 08/10/18 History Strength] Albuterol Sulfate [Proair HFA] 2 puff INH Q4HR PRN 08/03/18 08/10/18 History Aspirin 325 mg PO DAILY 08/03/18 08/10/18 History Gabapentin 600 mg PO TID 08/03/18 08/10/18 History Hyoscyamine Sulfate [Hyoscyamine 1 - 2 tab SL Q6H PRN 08/03/18 08/10/18 History Sulfate SL] Ipratropium/Albuterol Sulfate 3 ml NEB Q4H PRN 08/03/18 08/10/18 History [DuoNeb] Levothyroxine Sodium [Synthroid] 2 tab PO DAILY 08/03/18 08/10/18 History Lorazepam [Ativan] 1 - 2 tab PO Q4HR PRN 08/03/18 08/10/18 History Morphine IR [Morphine Oral 5 - 20 mg PO Q2H PRN 08/03/18 08/10/18 History Solution] QUEtiapine Fumarate [Seroquel] 50 mg PO HS 08/03/18 08/10/18 History Scopolamine [Transderm Scop] 2 patch TOP Q3D 08/03/18 08/10/18 History Sennosides/Docusate Sodium [Senna 1 each PO BID 08/03/18 08/10/18 History Plus Tablet] Tamsulosin HCl [Flomax] 0.4 mg PO DAILY 08/03/18 08/10/18 History fentaNYL [Duragesic] 100 mcg TD Q3D 08/03/18 08/10/18 History - History PMHx: Thyroid cancer s/p chemo/radiation/ resection w/stoma, asthma, depression PSHx: Thyroidectomy/trach , b/l lymph node removal FHx: none Social: Former tobacco use, marijuana use, hx alcohol abuse and withdraw - Review of Systems ROS unobtainable: other (ROS difficult to obtain due to somnulence.) - Vital signs BP: 130/62 HR: 80 RR: 10 Tmax: Pox: 94% on ra Wt: 72 kg - Physical Exam Constitutional: well developed, other (GCS [id number] oriented to person and place. Somnolent, will fall asleep mid conversation, have apneic peroid. Will awake spontaneously or to stimuli.) HEENT: normocephalic and atraumatic, PERRLA (not pinpoint), other (dry mucus membranes) Neck: trachea midline, no JVD Chest: no-tender to palpation, no lesions Heart: RRR, normal S1/S2, pulses present, no edema Lungs: CTAB, other (apneic episodes) Abdomen: soft Musculoskeletal: other (5/5 muscle strength BLE, BUE. Follows commands.) Skin: other (Pt has superficial lesions/abrasions over his shoulders. Excoriations in b/l LE) FMR H&P: Results - Labs Result Diagrams: 08/11/18 05:07 08/11/18 05:07 FMR H&P: A/P - Problem List (1) Acute delirium Current Visit: Yes Status: Acute Code(s): R41.0 - DISORIENTATION, UNSPECIFIED - Plan 63 yo M on home hospice presents with confusion, is deemed unsafe to return home and is admitted for acute delirium. Acute delirium - Initial labs unremarkable, no leukocytosis, no obvious infection, CT head with no acute changes. - Patient is satting well on RA but I did witness apneic events of 5-10 seconds duration. Bicarb is 28 on labs. Pending UA, UDS and ABG. His , Ryann is reported to be hospitalized at [facility] as well. Palliative care note from last admission notes pt is estranged from his 3 children. , Ryann, is his closest family. Only other family member pt gave permission to contact was an aunt. Her contact info is in this PC note. At this time patient seems most appropriate for inpatient hospice care rather than admission here. Contacted [facility] and they are to come to evaluate patient for this. Admission here is on hold for now. Visited with Ryann to update her on Mr. Cruz's status and that people will likely come for her to consent on behalf of her as he does not have capacity to make decisions. Patient's status is very guarded at this point. FMR H&P: Upper Level - Plan Date/Time: 08/10/181530 I, [], have evaluated this patient and agree with findings/plan as outlined by academic intern resident. Pertinent changes/additions are listed here. Addendum - Attending - Attending Attestation Date/Time: 08/11/182048 I personally evaluated the patient and discussed the management with Dr. Chino on 08/10/18. I agree with the History, Examination, Assessment and Plan documented above with any addition or exceptions noted below. 63 y.o. WM with h/o Thyroid CA s/p treatment, previously in remission but now on Hospice with [facility] found down unconscious at home, covered in ants. Pt. continued to be obtunded in ER and was considered for Hospice Inpatient Care , but pt. began to respond to resuscitation and regained consciousness. Pt was therefore brought in as an observation for evaluation. Pt. reportedly has also been behaving increasingly erratic and there is some concern for his safety to himself and others.
[2018-08-10 15:52] LABS: ALT (SGPT) 43 U/L (8-55); AST (SGOT) 20 U/L (5-34); Albumin 3.1 g/dL (3.4-4.8); Alkaline Phosphatase 129 U/L (40-150); Anion Gap 12 mmol/L (10-20); BUN (Urea Nitrogen) 23 mg/dL (8.4-25.7); Bilirubin, Total 0.5 mg/dL (0.2-1.2); CK (CPK) 335 U/L (30-200); Calc. Creatinine Clearance 0 mL/min (70-130); Calcium 8.4 mg/dL (7.8-10.44); Carbon Dioxide 28 mmol/L (23-31); Chloride 104 mmol/L (98-107); Estimated GFR-MDRD Greater than 90; Globulin 2.1 g/dL (2.4-3.5); Glucose 252 mg/dL (80-115); Lipase Less than 4 U/L (8-78); Potassium 3.6 mmol/L (3.5-5.1); Protein, Total 5.2 g/dL (5.8-8.1); Sodium 140 mmol/L (136-145)
[2018-08-10] MEDS ORDERED: Ondansetron ODT 4 MG TAB PO PRN (16:09)
[2018-08-10] MEDS ORDERED: Acetaminophen 650 MG Suppository PR PRN (16:09)
[2018-08-10] MEDS ORDERED: PROVENTIL INHALER 6.7 G (200 INHALATIONS) INH PRN (16:09)
[2018-08-10] MEDS ORDERED: Morphine IR 10 MG/5 ML UDCUP PO PRN (16:09)
[2018-08-10] MEDS ORDERED: Hyoscyamine Sulfate SL 0.125 mg Tablet SL PRN (16:09)
[2018-08-10] MEDS ORDERED: Ondansetron PF 4 MG/2 ML Vial IVP PRN (16:09)
[2018-08-10] MEDS ORDERED: Acetaminophen 325 MG TAB PO PRN (16:09)
[2018-08-10 16:49] LABS: Bilirubin Negative (Negative); Blood, Urine Negative (Negative); Clarity CLEAR (Clear); Glucose, Urine (Dipstick) 250 mg/dL (Negative); Leukocyte Negative (Negative); Nitrite Negative (Negative); Protein, Urine (Dipstick) Negative (Neg-Trace); Specific Gravity, Urine 1.025 (1.002-1.036); Urobilinogen 0.2 mg/dL (0.2-1.0)
[2018-08-10 20:05] LABS: Benzodiazepine Screen Detected (NotDetected); Cocaine Metabolite Screen Not Detected (NotDetected); Medtox Reader # READER 1; Methamphetamine Not Detected (NotDetected); Opiate Screen Detected (NotDetected); Phencyclidine (PCP) Not Detected (NotDetected); THC/Cannabinoid Screen Not Detected (NotDetected)
[2018-08-10 20:06] LABS: Amphetamine Not Detected (NotDetected); Barbiturates Screen Not Detected (NotDetected); Medtox Control Line Valid? VALID (VALID); Methadone Not Detected (NotDetected); Oxycodone Screen Not Detected (NotDetected); Tricyclic Screen Detected (NotDetected)
[2018-08-10 20:36] VITALS: BMI 19.5
[2018-08-10] MEDS: Senokot S 8.6-50 MG TAB PO SCH (21:17)
[2018-08-10] MEDS: Gabapentin 300 MG CAP PO SCH (21:17)
[2018-08-10] MEDS: Sodium Chloride 0.9% 1,000 ML IV SCH (21:33)
[2018-08-10] MEDS: Scopolamine 1.5 mg/72 hour Patch TOP SCH (21:35)
[2018-08-10] MEDS: fentaNYL 100 mcg/hour Patch TD SCH (21:37)
[2018-08-10] MEDS: Famotidine/PF 20 mg/2ml Vial SLOW IVP SCH (21:38)
[2018-08-11] MEDS: Sodium Chloride 0.9% 1,000 ML IV SCH ×3 (01:46→20:02)
[2018-08-11 05:38] LABS: #Basophils 0.1 thou/uL (0.0-0.2); #Lymphocytes 0.3 thou/uL (1.20-3.40); #Monocytes 0.5 thou/uL (0.11-0.59); #Neutrophils 11.1 thou/uL (1.40-6.50); %Basophils 0.6 % (0.0-1.0); %Eosinophils 0.1 % (0.0-10.0); %Lymphocytes 2.8 % (21.0-51.0); %Monocytes 4.1 % (0.0-10.0); %Neutrophils 92.3 % (42.0-75.0); Hemoglobin 9.4 g/dL (14.0-18.0); Mean Corpuscular HGB CONC 33.8 g/dL (32.0-36.0); Mean Corpuscular Hemoglobin 32.8 pg (27.0-31.0); Mean Corpuscular Volume 97.2 fL (78.0-98.0); Mean Platelet Volume 7.2 fL (7.4-10.4); Platelet Count 204 thou/uL (130-400); RBC Distribution Width 13.9 % (11.5-14.5); Red Blood Cell (RBC) Count 2.85 mill/uL (4.70-6.10); White Blood Cell (WBC) Count 12.1 thou/uL (4.8-10.8)
[2018-08-11 06:02] LABS: Anion Gap 11 mmol/L (10-20); BUN (Urea Nitrogen) 17 mg/dL (8.4-25.7); Calc. Creatinine Clearance 104 mL/min (70-130); Calcium 7.9 mg/dL (7.8-10.44); Carbon Dioxide 25 mmol/L (23-31); Chloride 108 mmol/L (98-107); Estimated GFR-MDRD Greater than 90; Glucose 108 mg/dL (80-115); Potassium 3.4 mmol/L (3.5-5.1); Sodium 141 mmol/L (136-145)
--- NOTE | 2018-08-11 07:47 | PDOC.FM ---
- Subjective Subjective: Pt doing OK overnight. More alert his morning. No events per nursing. Tolerating PO. - Objective Vital Signs & Weight: Vital Signs (12 hours) Temp Pulse Resp BP Pulse Ox 08/11/18 04:00 98.6 F 79 16 98/61 97 08/11/18 00:31 97.9 F 61 16 98/60 97 08/10/18 20:35 98.1 F 75 16 135/80 100 Weight Weight 59.965 kg I&O: 08/10/18 08/11/18 08/12/18 06:59 06:59 06:59 Intake Total 485 Balance 485 Result Diagrams: 08/11/18 05:07 08/11/18 05:07 Phys Exam - Physical Examination Constitutional: NAD Neck: no nodes, no JVD (trach collar present) Respiratory: no wheezing, no rales (ronchi diffusely) Cardiovascular: RRR, no significant murmur Gastrointestinal: soft, non-tender Musculoskeletal: no edema, pulses present Neurological: non-focal, normal sensation, moves all 4 limbs Psychiatric: normal affect, A&O x 3 Skin: no rash, normal turgor Dx/Plan (1) Acute delirium Code(s): R41.0 - DISORIENTATION, UNSPECIFIED Status: Acute (2) Aspiration into airway Code(s): T17.908A - UNSP FB IN RESP TRACT, PART UNSP CAUSING OTH INJURY, INIT Status: Suspected - Plan Plan: # Acute Delirium: Likely 2/2 hypoxia and hypercarbia but mouch improved. Pt is on outpatient hospice and we will continue to monitor condition. Pt is DNAR code status that has been discussed with him within the past week and DNAR form was confirmed with hospice company who is currently faxing to ED. # Terminal Thyroid Cancer: Continue focusing on comfort care for patient. # Social: Will need place to discharge as deemed his home is unsafe environment. Will speak with lining caser. DISPO: Medically stable for discharge pending placement. Addendum - Attending - Attending Attestation Date/Time: 08/11/18 1452 I personally evaluated the patient and discussed the management with Dr. Plascencia I agree with the History, Examination, Assessment and Plan documented above with any addition or exceptions noted below. Patient with unsafe home environment per [facility](Hospice Service) and reported active APS case reguard patient spouse. Patient with no memory of recent events and displays agitation and circular reasoning with questioned. Patient deemed incompetent to make his own decisions by Hospice Physician which I agree with at this time. Patient with repeated recent hospitalizations due to unstable unsafe home environment and support. Recommend haldol/ativan to control agitation and delirium. May need MHMR evaluation if he elects to leave. Viable option would be placement in half-way. Was evaluated yesterday for inpatient hospice and was not felt suitable candidate at the time.
[2018-08-11] MEDS: Lorazepam 1 MG TAB PO PRN ×2 (08:30→20:03)
[2018-08-11] MEDS: Gabapentin 300 MG CAP PO SCH ×3 (08:30→20:01)
[2018-08-11] MEDS: predniSONE 5 MG TAB PO SCH (08:31)
[2018-08-11] MEDS: Aspirin 325 MG TAB PO SCH (08:32)
[2018-08-11] MEDS: Tamsulosin HCl 0.4 MG CAP PO SCH (08:32)
[2018-08-11] MEDS: Senokot S 8.6-50 MG TAB PO SCH ×2 (08:32→20:02)
[2018-08-11] MEDS: Levothyroxine Sodium 112 MCG TAB PO SCH (08:34)
[2018-08-11] MEDS: Famotidine/PF 20 mg/2ml Vial SLOW IVP SCH ×3 (08:38→20:07)
[2018-08-11] MEDS ORDERED: Prevnar 13-Val Conj/PF 0.5 ML SYRINGE IM ONE (09:00)
[2018-08-11] MEDS ORDERED: Haloperidol Lactate 5 MG/ML VIAL IM PRN (09:03)
[2018-08-11] MEDS ORDERED: diphenhydrAMINE 50 MG/ML VIAL IVP SCH (09:15)
--- NOTE | 2018-08-11 15:01 | PDOC.EVN ---
Event Note - Event Note Event Note: Order place for MHMR evaluation after pt reports he "would rather have someone shoot me in the head than be here". I also spoke with his hospice company and they state he has recently mentioned shooting himself in the head. Also is unable to go to several institutions as he has been deemed unsafe to live with other residents there. Would strongly consider inpatient psych treatment at this time. Discussed in detail and seen with attending Dr Magana.
[2018-08-11] MEDS: Acetaminophen 500 MG TAB PO PRN (20:03)
--- NOTE | 2018-08-12 07:12 | PDOC.FM ---
Addendum entered and electronically signed by Abhay Plascencia DO 08/12/18 07:37 : PE: GEN: Alert sleepy CARDIO: NO MRG, RRR RESP: Trach collar present, ronchi throughout MSK: Thin, no edema PSYCH: oriented and appropriate. Original Note: - Subjective Subjective: Pt sleepy and denies complaints. - Objective Vital Signs & Weight: Vital Signs (12 hours) Temp Pulse Resp BP Pulse Ox 08/11/18 19:56 99.0 F 116 H 16 117/60 97 Weight Admit Weight 59.965 kg Weight 59.965 kg I&O: 08/11/18 08/12/18 08/13/18 06:59 06:59 06:59 Intake Total 485 110 Balance 485 110 Result Diagrams: 08/11/18 05:07 08/11/18 05:07 Dx/Plan (1) Acute delirium Code(s): R41.0 - DISORIENTATION, UNSPECIFIED Status: Acute (2) Aspiration into airway Code(s): T17.908A - UNSP FB IN RESP TRACT, PART UNSP CAUSING OTH INJURY, INIT Status: Suspected - Plan Plan: # Social: Pt has found down at home 2d ago with ants on him and his sife and tap grinder hospicalized, but going to long-term upon discharge. Also pt was driving around town in [facility] and is deemed unsafe to discharge to home without proper care as he is unable to care for himself and sife is unable to care for him. MHMR consulted yesterday and inpatient not an option b/c of his terminal illness. Will continue to speak with CW and dispo planning. # Acute Delirium: Resolved; Recurrent and likely 2/2 hypoxia and hypercarbia. Pt is on outpatient hospice and we will continue to monitor condition. Pt is DNAR code status that has been discussed with him within the past week and DNAR form was confirmed with hospice company. # Terminal Thyroid Cancer: Continue focusing on comfort care for patient. Addendum - Attending - Attending Attestation Date/Time: 08/12/18 4338 I personally evaluated the patient and discussed the management with I agree with the History, Examination, Assessment and Plan documented above with any addition or exceptions noted below. Awaiting placement options foe continued hospice care patient not suitable to d/ c home and not mentally competent to make decisions. Delirium improved with current treatment.
[2018-08-12] MEDS: Lorazepam 1 MG TAB PO PRN ×2 (09:13→16:26)
[2018-08-12] MEDS: Levothyroxine Sodium 112 MCG TAB PO SCH (09:13)
[2018-08-12] MEDS: Aspirin 325 MG TAB PO SCH ×2 (15:30→16:40)
[2018-08-12] MEDS: Sodium Chloride 0.9% 1,000 ML IV SCH ×3 (15:30→16:41)
[2018-08-12] MEDS: predniSONE 5 MG TAB PO SCH ×2 (15:30→16:25)
[2018-08-12] MEDS: Senokot S 8.6-50 MG TAB PO SCH ×2 (15:31→20:03)
[2018-08-12] MEDS: Tamsulosin HCl 0.4 MG CAP PO SCH ×2 (15:31→16:40)
[2018-08-12] MEDS: Gabapentin 300 MG CAP PO SCH ×3 (15:31→20:02)
[2018-08-12] MEDS: Famotidine/PF 20 mg/2ml Vial SLOW IVP SCH ×2 (15:31→20:07)
--- NOTE | 2018-08-13 07:27 | PDOC.EVN ---
Addendum - Attending - Attending Attestation Date/Time: 08/13/18 4272 I personally evaluated the patient and discussed the management with Dr. Mack. I agree with the History, Examination, Assessment and Plan documented in her progress note with any addition or exceptions noted below. Patient stable. Difficult placement situation. Will discuss with CM, family, and outpatient hospice company today.
[2018-08-13] MEDS: Gabapentin 300 MG CAP PO SCH ×3 (07:55→20:12)
[2018-08-13] MEDS: predniSONE 5 MG TAB PO SCH (07:56)
[2018-08-13] MEDS: Levothyroxine Sodium 112 MCG TAB PO SCH (07:57)
[2018-08-13] MEDS: Tamsulosin HCl 0.4 MG CAP PO SCH (07:57)
[2018-08-13] MEDS: Aspirin 325 MG TAB PO SCH (07:58)
[2018-08-13] MEDS: Famotidine/PF 20 mg/2ml Vial SLOW IVP SCH ×2 (07:58→20:13)
[2018-08-13] MEDS: Senokot S 8.6-50 MG TAB PO SCH ×2 (07:58→20:12)
--- NOTE | 2018-08-13 10:49 | PDOC.FM ---
- Subjective Subjective: Patient resting comfortably in bed with trach on room air. He was not agitated, but sometimes answered questions inappropriately with nonsensical speech. He reports some cough and trouble breathing when he has increased sputum in his trach. He was AOx1 only to person. The sitter from overnight reported that he was unsteady on his feet when getting up to go to the bathroom and kept insisting on leaving, but he was not agitated. - Objective MAR Reviewed: Yes Vital Signs & Weight: Vital Signs (12 hours) Temp Pulse Resp BP Pulse Ox 08/13/18 08:00 97.8 F 104 H 16 103/66 97 08/13/18 04:45 97.8 F 66 18 100/62 99 08/13/18 00:00 97.8 F 75 16 100/64 97 Weight Admit Weight 59.965 kg Weight 59.965 kg I&O: 08/12/18 08/13/18 08/14/18 06:59 06:59 06:59 Intake Total 110 2110 Balance 110 2110 Result Diagrams: 08/11/18 05:07 08/11/18 05:07 Phys Exam - Physical Examination Constitutional: NAD (resting comfortably with trach in place) HEENT: moist MMs, sclera anicteric trach in place with sputum production Respiratory: no wheezing, no rales, no rhonchi productive cough, audible rhonchi from upper airway, no respiratory distres Cardiovascular: RRR, no significant murmur, no rub Gastrointestinal: soft, non-tender, no distention, positive bowel sounds Musculoskeletal: no edema, pulses present Neurological: non-focal, moves all 4 limbs Deviation from normal: AOx1, nonsensical speech at times, poor insight/judgment , frustrated Skin: normal turgor, cap refill <2 seconds Dx/Plan (1) Acute delirium Code(s): R41.0 - DISORIENTATION, UNSPECIFIED Status: Acute (2) H/O malignant neoplasm of thyroid Code(s): Z85.850 - PERSONAL HISTORY OF MALIGNANT NEOPLASM OF THYROID Status: Chronic - Plan Plan: Acute Delirium: Improved, Recurrent and likely 2/2 hypoxia and hypercarbia. Pt is on outpatient hospice and we will continue to monitor condition. Pt has found down at home prior to admission with ants on him and his and internet sales associate was hospitalized at the time and is now in a care facility. Also pt was driving around town in delirium and is deemed unsafe to discharge to home without proper care as he is unable to care for himself and is unable to care for him. Pt is DNAR code status that has been discussed with him within the past week and DNAR form was confirmed with hospice company. -Haldol and ativan prn agitation -MHMR consulted and inpatient not an option b/c of his terminal illness. Inpatient hospice denied him -Case management on board to assist with placement -APS was consulted Terminal Thyroid Cancer -Continue focusing on comfort care for patient. Tracheostomy in place Code status: DNAR Dispo: will attempt NH placement with hospice. Case management working on this.
[2018-08-13] MEDS: fentaNYL 100 mcg/hour Patch TD SCH (16:12)
[2018-08-13] MEDS: Scopolamine 1.5 mg/72 hour Patch TOP SCH (16:21)
[2018-08-13 21:36] VITALS: TEMP 98.4
[2018-08-14 07:49] VITALS: BP 110/71
[2018-08-14] MEDS: predniSONE 5 MG TAB PO SCH (07:50)
[2018-08-14] MEDS: Levothyroxine Sodium 112 MCG TAB PO SCH (07:51)
[2018-08-14] MEDS: Tamsulosin HCl 0.4 MG CAP PO SCH (07:51)
[2018-08-14] MEDS: Gabapentin 300 MG CAP PO SCH ×2 (07:51→14:50)
[2018-08-14] MEDS: Famotidine/PF 20 mg/2ml Vial SLOW IVP SCH (07:52)
[2018-08-14] MEDS: Aspirin 325 MG TAB PO SCH (07:52)
[2018-08-14] MEDS: Senokot S 8.6-50 MG TAB PO SCH (07:52)
--- NOTE | 2018-08-14 08:08 | PDOC.EVN ---
Addendum - Attending - Attending Attestation Date/Time: 08/14/18 0807 I personally evaluated the patient and discussed the management with Dr. Mack. I agree with the History, Examination, Assessment and Plan documented in her progress note with any addition or exceptions noted below. Patient stable. Continue to await decision on skilled nursing placement for hospice care as he is not safe to return home and his can no longer care for him. CM and Palliative care involved.
--- NOTE | 2018-08-14 08:44 | PDOC.FM ---
- Subjective Subjective: Patient AOx2 today. Denies any pain or SOB. Is irritated that he is still in the hospital. Difficult to understand speech, but was more coherent than yesterday. He is eating ok and denies N/V. - Objective MAR Reviewed: Yes Vital Signs & Weight: Vital Signs (12 hours) Temp Pulse Resp BP Pulse Ox 08/14/18 07:49 98.4 F 76 16 110/71 96 Weight Admit Weight 59.965 kg Weight 59.965 kg I&O: 08/13/18 08/14/18 08/15/18 06:59 06:59 06:59 Intake Total 2110 610 Balance 2109 610 Result Diagrams: 08/11/18 05:07 08/11/18 05:07 Phys Exam - Physical Examination Constitutional: NAD HEENT: moist MMs, sclera anicteric trach in place Respiratory: no wheezing, no rales, no rhonchi, clear to auscultation bilateral upper airway rhonchi Cardiovascular: RRR, no significant murmur, no rub Gastrointestinal: soft, non-tender, no distention, positive bowel sounds Musculoskeletal: no edema, pulses present Neurological: non-focal, moves all 4 limbs unsteady gait Deviation from normal: AOx2 Dx/Plan (1) Acute delirium Code(s): R41.0 - DISORIENTATION, UNSPECIFIED Status: Acute (2) H/O malignant neoplasm of thyroid Code(s): Z85.850 - PERSONAL HISTORY OF MALIGNANT NEOPLASM OF THYROID Status: Chronic - Plan Plan: Acute Delirium: Improved, Recurrent and likely 2/2 hypoxia and hypercarbia. Pt is on outpatient hospice and we will continue to monitor condition. Pt has found down at home prior to admission with ants on him and his and hair baler was hospitalized at the time and is now in a care facility. Also pt was driving around town in delirium and is deemed unsafe to discharge to home without proper care as he is unable to care for himself and is unable to care for him. Pt is DNAR code status that has been discussed with him within the past week and DNAR form was confirmed with hospice company. -Haldol and ativan prn agitation -MHMR consulted and inpatient not an option b/c of his terminal illness. Inpatient hospice denied him -Case management on board to assist with placement -APS was consulted Terminal Thyroid Cancer -Continue focusing on comfort care for patient. Tracheostomy in place Code status: DNAR Dispo: will attempt NH placement with hospice. Case management working on this.
[2018-08-14] MEDS: Acetaminophen 500 MG TAB PO PRN (12:29)
--- NOTE | 2018-08-15 16:30 | DIS ---
DATE OF ADMISSION: 08/10/2018 DATE OF DISCHARGE: 08/14/2018 DISCHARGE ATTENDING: Marty Davila MD. ADMITTING RESIDENT: True Reveles DO. DISCHARGE RESIDENT: Estrellita Mack MD. CONSULTS: Adult Protective Services and [facility]. PROCEDURES: None. PRIMARY DIAGNOSES: 1. Acute delirium. 2. Malignant neoplasm of thyroid. 3. Tracheostomy. DISCHARGE MEDICATIONS: 1. Prednisone 5 mg two tabs for one day and one tab for 5 days. 2. Albuterol 2 puffs inhaled q.4 hours p.r.n. dyspnea. 3. Aspirin 325 mg p.o. daily. 4. Fentanyl 100 mcg transdermal q.3 days. 5. Gabapentin 600 mg p.o. t.i.d. 6. Haldol 2 mg IM q.4 hours p.r.n. agitation. 7. DuoNeb 3 mL neb inhaled q.4 hours p.r.n. dyspnea. 8. Synthroid 112 mcg two tablets p.o. daily. 9. Ativan 1 mg 1 to 2 tabs p.o. q.4 hours p.r.n. anxiety. 10. Morphine IR 5 to 20 mg p.o. q.2 hours p.r.n. pain. 11. Seroquel 50 mg p.o. at bedtime. 12. Scopolamine two patch topical q.3 days. 13. Tamsulosin 0.4 mg p.o. daily. 14. Discontinued medications, none. HISTORY OF PRESENT ILLNESS AND HOSPITAL COURSE: This is a 63-year-old male, past medical history of thyroid cancer, status post therapy and resection, who presented due to acute delirium. The patient was found at home with ants on him and his who was previously his water resource project manager, has now been placed in a nursing facility. The patient had also been driving around town during his delirium and it was found that he was unsafe to be at home. The patient was found to be mildly hypoxic and it was suspected that the source of his delirium, this improved some. The patient is on outpatient hospice services and has a DNR in place. The patient's mental status waxed and waned. It was discussed with Adult Protective Services, [facility] Case Management and inpatient hospice and he was declined from inpatient hospice or inpatient psych and so it was decided to discharge the patient to nursing home facility and continue his outpatient hospice services. The patient is not safe to live alone at this time. DISPOSITION: Poor. PROGNOSIS: Discharged to [facility]. DIET: Regular. ACTIVITY: As tolerated. FOLLOWUP: Follow up with PCP in 7 days. Job ID: [id number]
[2018-08-16] MEDS ORDERED: predniSONE 5 MG TAB PO SCH (08:00)
== END 2018-08-14 16:26 | DRG 948 ==
LOC: ERS 13:04 → T4-B 19:05 → ERHOLD 19:07 → T4-B 20:18
PROVIDERS: ADMIT Family Medicine; ATTEND Family Medicine
DX: R41.0 Disorientation, unspecified (principal); R09.02 Hypoxemia; Z93.0 Tracheostomy status; J45.909 Unspecified asthma, uncomplicated; F32.9 Major depressive disorder, single episode, unspecified; Z66 Do not resuscitate; Z85.850 Personal history of malignant neoplasm of thyroid; Z92.21 Personal history of antineoplastic chemotherapy; Z92.3 Personal history of irradiation; Z87.891 Personal history of nicotine dependence; Z88.8 Allergy status to other drugs, medicaments and biological substances; Z79.82 Long term (current) use of aspirin; Z79.899 Other long term (current) drug therapy
CPT/HCPCS: 36415; 70450; 80048; 80053; 80306; 81003; 82550; 83690; 85025; 94640; 96360; J1630; J7512; J7620; S0028

== ENCOUNTER 2018-10-05 17:35 | Inpatient (IN) | payer MEDICARE, OTHER ==
[2018-10-05] MEDS ORDERED: Lorazepam 2 MG/ML VIAL SLOW IVP PRN (18:43)
[2018-10-05] MEDS ORDERED: Morphine 4 MG/ML VIAL SLOW IVP PRN (18:43)
[2018-10-05 19:32] VITALS: BMI 22.1
[2018-10-06] MEDS: Morphine 10 MG/ML VIAL SLOW IVP PRN ×2 (11:49→20:15)
[2018-10-06] MEDS ORDERED: Lorazepam 2 MG/ML VIAL SLOW IVP PRN (12:56)
[2018-10-06] MEDS: Lorazepam 2 MG/ML VIAL SLOW IVP PRN (18:20)
[2018-10-07] MEDS: Morphine 10 MG/ML VIAL SLOW IVP PRN ×2 (01:44→12:06)
[2018-10-07] MEDS: Lorazepam 2 MG/ML VIAL SLOW IVP PRN ×2 (09:44→17:20)
[2018-10-08] MEDS: Lorazepam 2 MG/ML VIAL SLOW IVP PRN ×2 (00:29→15:34)
[2018-10-08] MEDS: Morphine 10 MG/ML VIAL SLOW IVP PRN ×3 (05:42→21:09)
[2018-10-09] MEDS: Lorazepam 2 MG/ML VIAL SLOW IVP PRN (04:38)
[2018-10-09 07:33] VITALS: BP 89/53
[2018-10-09] MEDS: Morphine 10 MG/ML VIAL SLOW IVP PRN ×2 (11:02→20:23)
[2018-10-09 20:38] VITALS: TEMP 103
--- NOTE | 2018-10-10 11:14 | DIS ---
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 The patient became more weak, was having deliriums and difficulty with cognition and communication, was admitted to the hospital on 10/05 and then transferred over to inpatient hospice in [facility]. His life support was suspended. He was obtunded from the time of arrival, never regained consciousness, and his bodily functions ceased on 10/09, peaceful, noneventful. The body was taken to the home of family's choice. Job ID: [id number]
--- NOTE | 2018-10-10 11:14 | HP ---
CHIEF COMPLAINT: Worsening of head and neck cancer. HISTORY OF PRESENT ILLNESS: This is a 63-year-old male, patient of [facility] who is being admitted for inpatient hospice in the [facility] service. He had been in and out of the hospital few times. He has had troubles at home trying to take care of himself with hospice due to his problems with cognition secondary to the cancer. 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 He also has a trach in place. He had been deemed unsafe to go home on his own and had legal guardians placed around him to try to help him and his to be able to stay at the house as long as he could. On his history of his cancer, he had had chemo and radiation as well as surgical resections and a stoma placed. He also has a history of asthma and depression and a strong history of tobacco abuse. He is unable to give a family history, social history. As stated, strong tobacco abuse history, has a history of alcohol abuse as well as marijuana use. REVIEW OF SYSTEMS: Currently, patient is obtunded and unable to give any responses. PHYSICAL EXAMINATION: VITAL SIGNS: Temp 100.2, pulse ranging from 80s to 130s, respiratory rate 22, oxygen saturation on room air is at 86%, BP is 89/53. GENERAL: He is lying peacefully in bed. HEENT: Shows normocephalic, no trauma to the cranium. Pupils are equal, round and reactive to light and accommodation. Extraocular movements heard. Not able to be tested at this time. The patient is obtunded and comatose. Mucosa is moist. Slight drainage from the stoma on his neck. Architecture of his left side of his face and neck is disrupted due to the cancer and the surgeries. He has emaciated appearance, cachectic. LUNGS: Bibasilar rales throughout. HEART: S1, S2 with no rubs, murmurs, or gallops. ABDOMEN: Soft, flat, no response to palpation. Bowel sounds are hypoactive. EXTREMITIES: Muscle atrophy, cachexia as stated. Palpable pulses in all extremities. ASSESSMENT: Metastatic squamous cell carcinoma of the head and neck, comatose obtunded state, being admitted for hospice. Expectation is as imminent. Job ID: [id number]
== END 2018-10-09 21:33 | disposition expired | DRG 951 ==
LOC: T4-A 17:35
PROVIDERS: ADMIT Family Medicine; ATTEND Family Medicine
DX: Z51.5 Encounter for palliative care (principal); C79.89 Secondary malignant neoplasm of other specified sites; C79.31 Secondary malignant neoplasm of brain; C78.7 Secondary malignant neoplasm of liver and intrahepatic bile duct; C79.51 Secondary malignant neoplasm of bone; C78.39 Secondary malignant neoplasm of other respiratory organs; R64 Cachexia; Z66 Do not resuscitate; C76.0 Malignant neoplasm of head, face and neck; F32.9 Major depressive disorder, single episode, unspecified; J45.909 Unspecified asthma, uncomplicated; Z87.891 Personal history of nicotine dependence
CPT/HCPCS: 36415; 70450; 71045; 80053; 81003; 82550; 83605; 83735; 84443; 84484; 85025; 87040; 87077; 87086; 87149; 87186; J1100; J2060; J2270; J2543; J3230